=== PATIENT | female | born 1985 | race Caucasian/White ===

== ENCOUNTER → 2019-08-28 13:12 | Outpatient (BNVA) | payer MEDICAID, SELFPAY | PROVIDERS: Family Provider Nurse Practitioner Family; PCP Nurse Practitioner Family; Visit Provider Anesthesiology | DX: M54.9 Dorsalgia, unspecified (principal); M54.2 Cervicalgia; M79.651 Pain in right thigh; M79.652 Pain in left thigh; Z79.891 Long term (current) use of opiate analgesic | CPT/HCPCS: 99214 ==

== ENCOUNTER 2019-09-04 15:42 | Emergency (ER) | payer MEDICAID, SELFPAY ==
--- NOTE | 2019-09-04 15:59 | XRR_ITS ---
PROCEDURE INFORMATION: Exam: XR Chest, 1 View Exam date and time: 09/04/2019 4:32 PM Age: 34 years old Clinical indication: Chest pain; Additional info: Cough/congestion TECHNIQUE: Imaging protocol: XR of the chest Views: 1 view. COMPARISON: CR Chest 1 [place] [id number] 02/04/2019 1:51 AM FINDINGS: Lungs: Unremarkable. No consolidation. Pleural space: Unremarkable. No pleural effusion. No pneumothorax. Heart/Mediastinum: Unremarkable. No cardiomegaly. Bones/joints: No acute abnormality. XR/XR chest 1V portable [id number] IMPRESSION: No acute findings. Unchanged exam.
--- NOTE | 2019-09-04 16:00 | ECG_ITS ---
Measurements Intervals [place] Rate: 73 P: 64 [place]: 172 QRS: 44 QRSD: 82 T: 44 QT: 393 QTc: 435 SINUS RHYTHM SEPTAL MYOCARDIAL INFARCTION [40+ ms Q WAVE IN V1/V2], OF INDETERMINATE AGE No previous ECG available for comparison Electronically Signed On 09-04-2019 18:34:57 MELTER CASTER by Minesh Patel M.D. [email or web address]
[2019-09-04 16:40] VITALS: BP 131/97; PULSE 80; RESP 18; TEMP 36.3; O2SAT 100; BMI 28.3
[2019-09-04 18:07] LABS: Basophils # 0.1 10^3/uL (0.0-0.1); Basophils % 1.1 %; Eosinophils # 1.7 10^3/uL (0.0-0.8); Eosinophils % 24.5 %; Hematocrit 45.9 % (37.0-47.0); Hemoglobin 14.3 g/dL (11.5-15.3); Lymphocytes # 2.1 10^3/uL (0.8-4.8); Lymphocytes % 30.5 %; Mean Corpuscular HGB Conc 31.2 g/dL (30.0-36.0); Mean Corpuscular Hemoglobin 29.5 pg (28.0-34.0); Mean Corpuscular Volume 94.6 fL (81-99); Mean Platelet Volume 10.2 fL (7.4-10.4); Monocytes # 0.3 10^3/uL (0.2-0.9); Monocytes % 4.4 %; Neutrophils # 2.7 10^3/uL (1.8-7.7); Neutrophils % 39.2 %; Nucleated Red Blood Cells % 0 %; Platelet Count 227 10^3/cmm (130-400); Red Blood Count 4.85 10^6/uL (4.1-5.3)
[2019-09-04 18:37] LABS: Alanine Aminotransferase 25 U/L (0-33); Albumin Level 4.4 g/dL (3.5-5.2); Alkaline Phosphatase 85 IU/L (35-105); Anion Gap 16.5 (5-19); Aspartate Amino Transferase 32 U/L (0-32); Blood Urea Nitrogen 17 mg/dL (6-20); Calcium 9.8 mg/dL (8.5-10.5); Carbon Dioxide 24 mmol/L (22-29); Chloride 95 mmol/L (98-107); Globulin 3.3 g/dL (1.3-4.6); Glomerular Filtration Rate 63.5 mL/min (90-130); Glucose 83 mg/dL (74-109); Potassium 3.5 mmol/L (3.5-5.1); Sodium 132 mmol/L (136-145); Total Bilirubin 0.2 mg/dL (0.15-1.2); Total Protein 7.7 g/dL (6.6-8.7)
[2019-09-04 18:38] LABS: Troponin(5th) Baseline 6 ng/mL (0-10)
--- NOTE | 2019-09-04 20:08 | ED_ITS ---
Entered by Fatou Vasquez, acting as scribe for Sep 04, 2019 15:42 HPI - Chest Pain General: Chief Complaint: Chest Pain Stated Complaint: the she had stemi last night, having cp Time Seen by Provider: 09/04/19 20:02 Source: patient Mode of arrival: ambulatory Limitations: no limitations History of Present Illness: HPI narrative: Ellen is a nice 34-year-old female who comes in complaining of epigastric and chest pain. She says the pain is sharp in nature it lasted for about 3 to 4 minutes and since that time she has had sharp stinging little prickly type pain to her chest. She had some associated shortness of breath but otherwise denies any nausea/vomiting, diaphoresis, radiation of her pain or other complaints. Patient states she is never had anything like this before. She is unaware of anything that makes her symptoms better or worse. MD complaint: chest pain Onset (ago): day(s) (last night) Timing of current episode: increasing and still present Onset: during rest Pain location: substernal and epigastric Severity: mild Quality: sharp Relieving factors: nothing Exacerbating factors: nothing Associated symptoms: Reports no associated symptoms and dyspnea; Deny abdominal pain, nausea, palpitations, syncope or vomiting Treatment prior to arrival: none Review of Systems General: Reports: other (negative unless marked) Const: Reports: fatigue Eyes: Denies: change in vision or blurry vision ENMT: Denies: throat pain, painful swallowing, hoarseness, ear pain, ear discharge, Change in hearing or nasal discharge Card: Reports: chest pain; Denies: palpitations, irregular heart rhythm, syncope, pre-syncope, shortness of breath on exertion or shortness of breath when lying down Resp: Reports: shortness of breath; Denies: productive cough, non-productive cough, wheezing, coughing up blood or chest congestion GI: Denies: abdominal pain, nausea, vomiting, vomiting blood, coffee grounds in vomit, diarrhea, constipation, cramping, blood in stool or black tarry stool : Denies: flank pain, painful urination, urinary frequency, urinary urgency, decreased urine ouput, urinary incontinence or blood in urine Musc: Denies: neck pain, back pain, extremity pain, extremity swelling, joint pain, joint swelling, joint warmth or joint stiffness Skin/Breast: Denies: rash, skin tenderness or yellow skin Neuro: Denies: headache, numbness in extremities, weakness in extremities, changes in sensation, lack of coordination, difficulty walking, dizziness, vertigo or confusion Endo: Denies: excessive thirst, tired all the time, cold intolerance, excessive sweating, flushing or hot flashes [place]/Lymph: Denies: easy bruising, easy bleeding, petechiae or enlarged lymph nodes All/Imm: Denies: hives, throat swelling, tongue swelling, facial swelling or acute wheezing PFSH ED PFSH: Statuses (acute, chronic, etc) shown below reflect problem list status as previously entered and may not be historically accurate Medical History (Updated 09/04/19 @ 22:58 by Zainab Paiz) 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) Chronic neck pain (Chronic) Encounter for long-term use of opiate analgesic (Chronic) Family history of GERD (Acute) History of fibromyalgia (Acute) History of IBS (Acute) Neuropathy, lumbosacral (radicular) (Chronic) Surgical History (Updated 08/28/19 @ 13:33 by Mata Lopez MD) History of wisdom tooth extraction (Acute) 2002 S/P arthroscopic knee surgery (Acute) RIGHT 2001 S/P laparoscopic cholecystectomy (Acute) 2008 Social History Smoking and tobacco status: current every day smoker Alcohol intake: never Physical Exam Const: COMMON NORMALS: no apparent distress, oriented x3, no limitations, healthy appearing and well nourished EXAM LIMITATIONS: no altered mental status GENERAL APPEARANCE: cooperative, well kempt and well developed O RIENTATION/CONSCIOUSNESS: Yes awake HENMT: COMMON NORMALS: normocephalic, head/scalp atraumatic, hearing grossly normal bilaterally, external ears normal, EAC's normal, external nose normal and moist oral mucous membranes HEAD & SCALP: normal to inspection, normocephalic and atraumatic FACE & SINUS: normal facial exam and face symmetric NOSE: external nose normal and nares normal EXTERNAL EAR: Yes external ears normal EXTERNAL AUDITORY CANAL: EAC's normal MOUTH: oral and palatal mucosa normal and tongue normal Eye: COMMON NORMALS: PERRL, EOMs intact bilaterally, conjunctivae normal and no scleral icterus GENERAL EYE: normal appearance of both eyes and normal light reflex CONJUNCTIVA: Yes conjunctivae normal SCLERA: sclerae normal CORNEA: Yes corneas normal PUPIL: Yes PERRL DIRECT OPHTHALMOSCOPY: Yes n ormal light reflex Neck/C-Spine: COMMON NORMALS: full ROM, no lymphadenopathy, supple, no meningeal signs and no JVD GENERAL: Yes normal visual inspection and Yes trachea midline CERVICAL SPINE: Yes cervical ROM normal Chest: COMMONS NORMALS: inspection of chest normal and palpation of chest normal Resp: COMMON NORMALS: normal respiratory effort, no retractions, no use of accessory muscles and clear to auscultation bilaterally EFFORT & INSPECTION: Yes able to speak in complete sentences AUSCULTATION: clear to auscultation bilaterally Cardio: COMMON NORMALS: no JVD GI: COMMON NORMALS: soft to palpation, non-tender, no hepatosplenomegaly and no masses INSPECTION: Yes normal to inspection PALPATION: Yes soft and Yes no hepatosplenomegaly : COMMON NORMALS: Yes no CVA tenderness BLADDER/KIDNEY EXAM: Yes no CVA tenderness Back/Pelvis: COMMON NORMALS: no CVA tenderness, thoracic and lumbar spine normal to inspection, no thoracic nor lumbar tenderness and thoraco-lumbar ROM normal Extremity: COMMON NORMALS: normal to inspection, full ROM, normal capillary refill, no joint enlargement, no clubbing, cyanosis or edema and no calf tenderness Neuro: COMMON NORMALS: oriented x3, CN's II-XII intact bilaterally, moves all extremities, no focal motor deficits and no sensory deficits noted MENINGEAL SIGNS: Yes no meningeal signs Psych: COMMON NORMALS: mental status grossly normal, thought process normal, cooperative, affect normal, speech normal and activity/motor behavior normal APPEARANCE: Yes well kempt SPEECH: Yes normal speech THOUGHT PROCESS: normal thought process Skin: COMMON NORMALS: no rashes or lesions noted, skin turgor normal, no jaundice, no petechiae and no mottling GENERAL SKIN EXAM: no rashes or lesions noted and turgor normal Course ED course: PERC Rule - Negative Vital Signs: Vital signs: Vital Signs Temperature 97.3 F L 09/04/19 16:40 Pulse Rate 73 09/04/19 23:37 Respiratory Rate 16 09/04/19 23:37 Blood Pressure 107/72 09/04/19 23:37 Pulse Oximetry 96 09/04/19 23:37 MDM - Chest Pain MDM Narrative: Medical decision making narrative: Arrival -Ellen is a 34-year-old female who comes in complaining of sharp chest pain that began last night but has resolved but continues to have intermittent prickly type pain to her chest. She has no other associated symptoms. She is PERC rule negative. Differential diagnosis for her symptoms is extensive including acute coronary syndrome, pulmonary embolism, acute aortic dissection, pneumothorax, mediastinal pathology among many others. We will proceed with cardiac work-up and evaluate for these among others. I believe at this time pulmonary embolism can be ruled out based upon the PERC rule. Discharge -patient's EKGs and troponins have ruled her out and her HEART Score is 2. Patient's CT scan does not reveal any evidence of aortic dissection. I believe she is safe for discharge she wants to follow-up with her primary care physician. At this time I think this is likely costochondritis. The patient had mild pain with palpation but her symptoms were worse when she moved around. Further care can be dictated by her doctor. The patient is relieved to hear that her work-up is unremarkable up to this point. Lab Data: Attestation: I reviewed the patient's lab results. Labs: Lab Results 09/04/19 09/04/19 09/04/19 Range/Units 17:59 17:59 17:59 WBC 7.0 (4.0-10.0) 10^3/ uL RBC 4.85 (4.1-5.3) 10^6/u L Hgb 14.3 (11.5-15.3) g/dL Hct 45.9 (37.0-47.0) % MCV 94.6 (81-99) fL MCH 29.5 (28.0-34.0) pg MCHC 31.2 (30.0-36.0) g/dL RDW 12.0 L (12.1-15.1) % Plt Count 227 (130-400) 10^3/c mm MPV 10.2 (7.4-10.4) fL Neut % (Auto) 39.2 % Lymph % (Auto) 30.5 % Fleming % (Auto) 4.4 % Eos % (Auto) 24.5 % Baso % (Auto) 1.1 % Neut # (Auto) 2.7 (1.8-7.7) 10^3/u L Lymph # (Auto) 2.1 (0.8-4.8) 10^3/u L Fleming # (Auto) 0.3 (0.2-0.9) 10^3/u L Eos # (Auto) 1.7 H (0.0-0.8) 10^3/u L Baso # (Auto) 0.1 (0.0-0.1) 10^3/u L Nucleated RBC % (a uto) 0 % Nucleated RBCs # 0.0 /100WBC Sodium 132 L (136-145) mmol/L Potassium 3.5 (3.5-5.1) mmol/L Chloride 95 L (98-107) mmol/L Carbon Dioxide 24 (22-29) mmol/L Anion Gap 16.5 (5-19) BUN 17 (6-20) mg/dL Creatinine 1.0 H (0.5-0.9) mg/dL GFR Calculation 63.5 L (90-130) mL/min Glucose 83 (74-109) mg/dL Calcium 9.8 (8.5-10.5) mg/dL Total Bilirubin 0.2 (0.15-1.2) mg/dL AST 32 (0-32) U/L ALT 25 (0-33) U/L Alkaline Phosphata se 85 (35-105) IU/L Troponin T Baselin e 6 (0-10) ng/mL Troponin T 120 Min [place] (0-10) ng/mL Delta Troponin T (0-10) ABS# Total Protein 7.7 (6.6-8.7) g/dL Albumin 4.4 (3.5-5.2) g/dL Globulin 3.3 (1.3-4.6) g/dL 09/04/19 Range/Units 20:50 WBC (4.0-10.0) 10^3/ uL RBC (4.1-5.3) 10^6/u L Hgb (11.5-15.3) g/dL Hct (37.0-47.0) % MCV (81-99) fL MCH (28.0-34.0) pg MCHC (30.0-36.0) g/dL RDW (12.1-15.1) % Plt Count (130-400) 10^3/c mm MPV (7.4-10.4) fL Neut % (Auto) % Lymph % (Auto) % Fleming % (Auto) % Eos % (Auto) % Baso % (Auto) % Neut # (Auto) (1.8-7.7) 10^3/u L Lymph # (Auto) (0.8-4.8) 10^3/u L Fleming # (Auto) (0.2-0.9) 10^3/u L Eos # (Auto) (0.0-0.8) 10^3/u L Baso # (Auto) (0.0-0.1) 10^3/u L Nucleated RBC % (a uto) % Nucleated RBCs # /100WBC Sodium (136-145) mmol/L Potassium (3.5-5.1) mmol/L Chloride (98-107) mmol/L Carbon Dioxide (22-29) mmol/L Anion Gap (5-19) BUN (6-20) mg/dL Creatinine (0.5-0.9) mg/dL GFR Calculation (90-130) mL/min Glucose (74-109) mg/dL Calcium (8.5-10.5) mg/dL Total Bilirubin (0.15-1.2) mg/dL AST (0-32) U/L ALT (0-33) U/L Alkaline Phosphata se (35-105) IU/L Troponin T Baselin e (0-10) ng/mL Troponin T 120 Min [place] 6.16 (0-10) ng/mL Delta Troponin T 0.16 (0-10) ABS# Total Protein (6.6-8.7) g/dL Albumin (3.5-5.2) g/dL Globulin (1.3-4.6) g/dL Imaging Data^: Other Imaging: Radiologist's impression: [address] [address] [address] Scan Report Signed Patient: Ellen Mcdowell Unit #: [id number] : 1985 Age/Sex: 34 / F ADM Date: 09/04/19 Loc: ER Room/Bed: Attending Dr: Ordering Provider/Ordering MD: Zainab Paiz DO Date of Service: 09/04/19 Procedure(s): CT angio chest w abd pel w con Accession Number(s): [id number] Report Number: [id number] PROCEDURE INFORMATION: Exam: CT Angiography Chest With Contrast Exam date and time: 09/04/2019 9:26 PM Age: 34 years old Clinical indication: Chest pain; Patient HX: Best images. Patient iv not tolerating injection; Additional info: Chest/abdominal pain - evaluate for dissection TECHNIQUE: Imaging protocol: Computed tomographic angiography of the chest with intravenous contrast. 3D rendering: MIP and/or 3D reconstructed images were created by the technologist. Total DLP: 1612.23 mGy-cm Radiation optimization: All CT scans at this facility use at least one of these dose optimization techniques: automated exposure control; mA and/or kV adjustment per patient size (includes targeted exams where dose is matched to clinical indication); or iterative reconstruction. Contrast material: OMNI 350; Contrast volume: 95 ml; Contrast route: IV; COMPARISON: CR XR chest 1V portable [id number] 09/04/2019 4:28 PM FINDINGS: Pulmonary arteries: Normal. No pulmonary emboli. Aorta: Unremarkable. No aortic aneurysm. No aortic dissection. Lungs: Unremarkable. No consolidation. No masses. There is mild dependent atelectasis. Pleural space: Unremarkable. No pneumothorax. No pleural effusion. Heart: Unremarkable. No cardiomegaly. No pericardial effusion. Lymph nodes: Unremarkable. No enlarged lymph nodes. Bones/joints: Unremarkable. No acute fracture. Soft tissues: Unremarkable. IMPRESSION: No acute findings. No aneurysm or dissection. No pulmonary embolus. PROCEDURE INFORMATION: Exam: CT Abdomen And Pelvis With Contrast Exam date and time: 09/04/2019 9:26 PM Age: 34 years old Clinical indication: Chest pain; Patient HX: Best images. Patient iv not tolerating injection; Additional info: Chest/abdominal pain - evaluate for dissection TECHNIQUE: Imaging protocol: Computed tomography of the abdomen and pelvis with intravenous contrast. COMPARISON: CR XR chest 1V portable [id number] 09/04/2019 4:28 PM FINDINGS: Liver: Unremarkable.No mass. Gallbladder and bile ducts: There has been a cholecystectomy. There is no common bile duct dilation. Pancreas: Normal. No ductal dilation. Spleen: Normal. No splenomegaly. Adrenals: Normal. No mass. Kidneys and ureters: Normal. No hydronephrosis. Stomach and bowel: Unremarkable. No obstruction. No mucosal thickening. Appendix: No evidence of appendicitis. Intraperitoneal space: Unremarkable. No free air. No significant fluid collection. Vasculature: Unremarkable.No abdominal aortic aneurysm. Lymph nodes: Unremarkable.No enlarged lymph nodes. Bladder: Unremarkable as visualized. Reproductive: Unremarkable as visualized. Subcentimeter ovarian cysts are noted. The uterus is unremarkable. Bones/joints: Unremarkable. No acute fracture. Soft tissues: There is a fat-containing umbilical hernia. CT/CT angio chest w abd pel w con IMPRESSION: No acute abnormality or inflammatory changes. Radiation Dose CTDIVOL = (mGy): DLP = 1612.23 (mGy-cm) Dictated By: Ann Peterson Signed By: Ann Peterson Signed Date/Time: 09/04/192217 DD/ 16 CXR: Radiologist's impression: [address] [address] XRay Report Signed Patient: Ellen Mcdowell #: [id number] : 1985Acct#:[id number] Age/Sex: 34 / FADM Date: 09/04/19 Loc: [facility], [place]/Bed: Attending Dr: Ordering Provider/Ordering MD: Kaley Meade Date of Service: 09/04/19 Procedure(s): XR chest 1V portable [id number] Accession Number(s): [id number] Report Number: [id number] PROCEDURE INFORMATION: Exam: XR Chest, 1 View Exam date and time: 09/04/2019 4:32 PM Age: 34 years old Clinical indication: Chest pain; Additional info: Cough/congestion TECHNIQUE: Imaging protocol: XR of the chest Views: 1 view. COMPARISON: CR Chest 1 [place] [id number] 02/04/2019 1:51 AM FINDINGS: Lungs: Unremarkable. No consolidation. Pleural space: Unremarkable. No pleural effusion. No pneumothorax. Heart/Mediastinum: Unremarkable. No cardiomegaly. Bones/joints: No acute abnormality. XR/XR chest 1V portable [id number] IMPRESSION: No acute findings. Unchanged exam. Dictated By:Ann Peterson Signed By:Kwame Petersonigned Date/Time:09/04/190 DD/ 1649 EKG Data^: EKG 1: Attestation: I personally reviewed and interpreted this EKG as follows: EKG interpretation date: 09/04/19 EKG interpretation time: 16:58 Interpretation: Normal sinus rhythm at 73 beats a minute, normal inverted juvenile T waves, normal intervals. No acute ST or T wave changes EKG 2: Attestation: I personally reviewed and interpreted this EKG as follows: EKG interpretation date: 09/04/19 EKG interpretation time: 20:24 Interpretation: Normal sinus rhythm at 77 beats a minute, normal axis, normal intervals, normal inverted juvenile T waves, no acute ST or T wave changes. Discharge Plan Discharge Patient Disposition: Home, Self-Care Clinical Impression: Chest pain Qualifiers: Chest pain type: unspecified Qualified Code(s): R07.9 - Chest pain, unspecified Condition: Stable Prescriptions: No Action hydrocodone-acetaminophen 10-325 mg tablet 1 tab PO .FIVE TIMES DAILY PRN (Reason: pain) 30 Days Qty: 150 RF: 0 hydrocodone-acetaminophen 10-325 mg tablet 1 tab PO .5 times a day PRN (Reason: pain) 30 Days Qty: 150 RF: 0 meloxicam [Mobic] 15 mg tablet 15 mg PO QDAY 30 Days Qty: 30 RF: 1 tizanidine 4 mg capsule 4 mg PO TID PRN (Reason: muscle spasticity) 30 Days Qty: 90 RF: 1 pregabalin [Lyrica] 75 mg capsule 75 mg PO BID 30 Days Qty: 60 RF: 1 pregabalin 75 mg capsule 75 mg PO BID 30 Days Qty: 60 RF: 1 ondansetron HCl [Zofran] 4 mg tablet 4 mg PO Q8H RF: 0 duloxetine [Cymbalta] 30 mg capsule,delayed release(DR/EC) 30 mg PO QDAY RF: 0 triamterene-hydrochlorothiazid 37.5-25 mg capsule 1 cap PO BID RF: 0 pantoprazole [Protonix] 40 mg tablet,delayed release (DR/EC) 40 mg PO QDAY RF: 0 hydroxyzine HCl 25 mg tablet 25 mg PO TID PRNRF: 0 rizatriptan [Maxalt] 10 mg tablet 10 mg PO ONCE RF: 0 Zyrtec 10 mg capsule 10 mg PO QDAY RF: 0 metoprolol tartrate 25 mg tablet 25 mg PO BID RF: 0 trazodone 50 mg tablet 50 mg PO QDAY PRN (Reason: insomnia) RF: 0 Discharge Orders: Discharge Order (Routine); Ordered 09/04/19 Ordered By: Zainab Paiz Referrals: Connor Bautista, [facility] [Primary Care Provider] - 1-3 days Discharge Diet: Advance as tolerated Discharge Activity: Resume usual activity Patient Instructions: Chest Pain (ED) Activity Restrictions/Additional Instructions: Please return to the ER immediately for any of the signs or symptoms listed on your discharge instruction sheets, worsening/changing of your symptoms, you are not getting better as quickly as expected, or for ANY other cause or concerns. Discharge Date/Time: 09/04/19 23:45 Coding Level of Care Code ED Barrel Scraper for Chg Fwd Exam Problem Focused The documentation recorded by the Pedro red Bridget Annette, accurately reflects the service I personally performed and the decisions made by Izabel osullivan Eli N Sep 04, 2019 15:42
--- NOTE | 2019-09-04 20:16 | CTR_ITS ---
PROCEDURE INFORMATION: Exam: CT Angiography Chest With Contrast Exam date and time: 09/04/2019 9:26 PM Age: 34 years old Clinical indication: Chest pain; Patient HX: Best images. Patient iv not tolerating injection; Additional info: Chest/abdominal pain - evaluate for dissection TECHNIQUE: Imaging protocol: Computed tomographic angiography of the chest with intravenous contrast. 3D rendering: MIP and/or 3D reconstructed images were created by the technologist. Total DLP: 1612.23 mGy-cm Radiation optimization: All CT scans at this facility use at least one of these dose optimization techniques: automated exposure control; mA and/or kV adjustment per patient size (includes targeted exams where dose is matched to clinical indication); or iterative reconstruction. Contrast material: OMNI 350; Contrast volume: 95 ml; Contrast route: IV; COMPARISON: CR XR chest 1V portable [id number] 09/04/2019 4:28 PM FINDINGS: Pulmonary arteries: Normal. No pulmonary emboli. Aorta: Unremarkable. No aortic aneurysm. No aortic dissection. Lungs: Unremarkable. No consolidation. No masses. There is mild dependent atelectasis. Pleural space: Unremarkable. No pneumothorax. No pleural effusion. Heart: Unremarkable. No cardiomegaly. No pericardial effusion. Lymph nodes: Unremarkable. No enlarged lymph nodes. Bones/joints: Unremarkable. No acute fracture. Soft tissues: Unremarkable. IMPRESSION: No acute findings. No aneurysm or dissection. No pulmonary embolus. PROCEDURE INFORMATION: Exam: CT Abdomen And Pelvis With Contrast Exam date and time: 09/04/2019 9:26 PM Age: 34 years old Clinical indication: Chest pain; Patient HX: Best images. Patient iv not tolerating injection; Additional info: Chest/abdominal pain - evaluate for dissection TECHNIQUE: Imaging protocol: Computed tomography of the abdomen and pelvis with intravenous contrast. COMPARISON: CR XR chest 1V portable [id number] 09/04/2019 4:28 PM FINDINGS: Liver: Unremarkable.No mass. Gallbladder and bile ducts: There has been a cholecystectomy. There is no common bile duct dilation. Pancreas: Normal. No ductal dilation. Spleen: Normal. No splenomegaly. Adrenals: Normal. No mass. Kidneys and ureters: Normal. No hydronephrosis. Stomach and bowel: Unremarkable. No obstruction. No mucosal thickening. Appendix: No evidence of appendicitis. Intraperitoneal space: Unremarkable. No free air. No significant fluid collection. Vasculature: Unremarkable.No abdominal aortic aneurysm. Lymph nodes: Unremarkable.No enlarged lymph nodes. Bladder: Unremarkable as visualized. Reproductive: Unremarkable as visualized. Subcentimeter ovarian cysts are noted. The uterus is unremarkable. Bones/joints: Unremarkable. No acute fracture. Soft tissues: There is a fat-containing umbilical hernia. CT/CT angio chest w abd pel w con IMPRESSION: No acute abnormality or inflammatory changes. Radiation Dose CTDIVOL = (mGy): DLP = 1612.23 (mGy-cm)
--- NOTE | 2019-09-04 20:24 | PC.NURSE ---
performed EKG at 2021 and shown to ER doctor
[2019-09-04 20:56] VITALS: BP 127/88; PULSE 80; RESP 13; O2SAT 100
[2019-09-04 21:23] LABS: Troponin 5 2HR 6.16 ng/mL (0-10); Troponin 5 2HR Delta 0.16 ABS# (0-10)
[2019-09-04] MEDS: iohexol 350 mg/mL 100 mL Btl 95 ML IV (21:35)
--- NOTE | 2019-09-04 22:00 | ECG_ITS ---
Measurements Intervals [place] Rate: 77 P: 59 W[place]: 169 QRS: 44 QRSD: 82 T: 37 QT: 391 QTc: 445 SINUS RHYTHM SEPTAL MYOCARDIAL INFARCTION , OF INDETERMINATE AGE [40+ ms Q WAVE IN V1/V2] Compared to ECG 09/04/2019 16:58:55 No significant changes Electronically Signed On 09-05-2019 11:35:57 CUSTOMER EXPERIENCE ANALYST by Herminio Chirstine M.D. [id number]
[2019-09-04 23:37] VITALS: BP 107/72; PULSE 73; RESP 16; O2SAT 96
== END 2019-09-04 23:45 | disposition home or self-care (01) ==
PROVIDERS: Physician Assistant; Emergency Provider Emergency Medicine; Family Provider Nurse Practitioner Family; PCP Nurse Practitioner Family
DX: R07.9 Chest pain, unspecified (principal); F17.210 Nicotine dependence, cigarettes, uncomplicated
CPT/HCPCS: 36415; 71045; 71275; 74177; 80053; 84484; 85025; 93005; 99282; 99284; Q9967

== ENCOUNTER → 2019-10-30 09:23 | Outpatient (BNVA) | payer MEDICAID, SELFPAY | PROVIDERS: Family Provider Nurse Practitioner Family; PCP Nurse Practitioner Family; Visit Provider Nurse Practitioner | DX: G89.29 Other chronic pain (principal); M54.41 Lumbago with sciatica, right side; M54.42 Lumbago with sciatica, left side; M54.2 Cervicalgia; F17.210 Nicotine dependence, cigarettes, uncomplicated; Z79.891 Long term (current) use of opiate analgesic | CPT/HCPCS: 99213; 99214 ==

== ENCOUNTER → 2020-09-30 11:03 | Outpatient (BNVA) | payer MEDICAID, SELFPAY | PROVIDERS: Family Provider Nurse Practitioner Family; PCP Nurse Practitioner Family; Visit Provider Internal Medicine | DX: R76.8 Other specified abnormal immunological findings in serum (principal); M54.2 Cervicalgia; G89.29 Other chronic pain; Z11.59 Encounter for screening for other viral diseases; R21 Rash and other nonspecific skin eruption; Z87.891 Personal history of nicotine dependence | CPT/HCPCS: 99204 ==

== ENCOUNTER 2020-09-30 14:52 | Outpatient (CLI) | payer MEDICAID, SELFPAY ==
--- NOTE | 2020-09-30 15:02 | XR_ITS ---
WS: [id number] Exam: XR hand LT 2V [id number] Date/Time of Exam: 09/30/2020 3:06 PM Reason For Exam: M54.42 - Lumbago with sciatica, left side Findings: No fractures, soft tissue swelling, or unusual calcifications are noted. The hand shows normal bony alignment. There is no irregularity of the bony architecture. XR/XR hand LT 2V [id number] IMPRESSION: Normal left hand.
--- NOTE | 2020-09-30 15:02 | XR_ITS ---
WS: [id number] Exam: XR sacroiliac jts m 3V [id number] Date/Time of Exam: 09/30/2020 3:06 PM Reason For Exam: L40.9 - Psoriasis, unspecified No fracture or dislocation. The SI joints are open. There is a mild to moderate degenerative change o f both joints. XR/XR sacroiliac jts m 3V [id number] IMPRESSION: 1. Mild to moderate degenerative change of the bilateral SI joints. No other si gnificant finding.
--- NOTE | 2020-09-30 15:02 | XR_ITS ---
WS: [id number] Exam: XR hand RT 2V [id number] Date/Time of Exam: 09/30/2020 3:06 PM Reason For Exam: M54.42 - Lumbago with sciatica, left side Findings: No fractures, soft tissue swelling, or unusual calcifications are noted. The hand shows normal bony alignment. There is no irregularity of the bony architecture. XR/XR hand RT 2V [id number] IMPRESSION: Normal right hand.
[2020-09-30 16:41] LABS: Basophils % 0.5 %; Eosinophils # 0.4 10^3/uL (0.0-0.8); Eosinophils % 5.9 %; Hemoglobin 13.2 g/dL (11.5-15.3); Lymphocytes # 2.2 10^3/uL (0.8-4.8); Lymphocytes % 35.8 %; Mean Corpuscular HGB Conc 32.2 g/dL (30.0-36.0); Mean Corpuscular Hemoglobin 28.9 pg (28.0-34.0); Mean Corpuscular Volume 89.9 fL (81-99); Mean Platelet Volume 10.8 fL (7.4-10.4); Monocytes # 0.5 10^3/uL (0.2-0.9); Monocytes % 7.4 %; Neutrophils # 3.07 10^3/uL (1.8-7.7); Neutrophils % 50.1 %; Nucleated Red Blood Cells % 0 %; Platelet Count 304 10^3/cmm (130-400); Red Blood Count 4.56 10^6/uL (4.1-5.3); Red Cell Distribution Width 13.3 % (12.1-15.1); White Blood Count 6.1 10^3/uL (4.0-10.0)
[2020-09-30 17:07] LABS: Alanine Aminotransferase 15 U/L (0-33); Alkaline Phosphatase 84 IU/L (35-105); Anion Gap 13.2 (5-19); Aspartate Amino Transferase 15 U/L (0-32); Blood Urea Nitrogen 16 mg/dL (6-20); C Reactive Protein 0.9 mg/L (0.0-4.9); Calcium 8.7 mg/dL (8.5-10.5); Carbon Dioxide 26 mmol/L (22-29); Chloride 100 mmol/L (98-107); Complement C3 130 mg/dL (90-180); Creatine Phosphokinase 62 U/L (26-192); Globulin 2.7 g/dL (1.3-4.6); Glomerular Filtration Rate 71.3 mL/min (90-130); Glucose 89 mg/dL (65-115); Osmolality Calculated 281 mOsm/kg (285-295); Potassium 4.2 mmol/L (3.5-5.1); Sodium 135 mmol/L (136-145); Total Bilirubin 0.2 mg/dL (0.15-1.2); Total Protein 6.7 g/dL (6.6-8.7)
[2020-09-30 17:21] LABS: Hepatitis B Core AB, Total Non-Reactive (Nonreactive); Hepatitis B Surface Antigen Non-Reactive (Nonreactive); Hepatitis C Virus Antibody Non-Reactive (Nonreactive)
[2020-09-30 17:58] LABS: Erythrocyte Sedimentation Rate 17 mm/hr (0-15)
[2020-10-01 13:07] LABS: CENTROMERE B ANTIBODY <1.0 NEG AI (<1.0 NEG); Cyclic Citrullinated Peptide <16 UNITS; JO-1 ANTIBODY <1.0 NEG AI (<1.0 NEG); RNP ANTIBODY <1.0 NEG AI (<1.0 NEG); SCL-70 ANTIBODY <1.0 NEG AI (<1.0 NEG); SJOGREN'S ANTIBODY (SS-A) <1.0 NEG AI (<1.0 NEG); SM ANTIBODY <1.0 NEG AI (<1.0 NEG); SS-B <1.0 NEG AI (<1.0 NEG)
[2020-10-01 15:32] LABS: THYROID PEROXIDASE ANTIBODIES 1 IU/mL (<9)
[2020-10-02 10:43] LABS: ANA PATTERN Nuclear, Homogeneous; ANA SCREEN, IFA POSITIVE (NEGATIVE)
[2020-10-02 14:13] LABS: COMPLEMENT, TOTAL (CH50) 53 U/mL (31-60)
[2020-10-03 00:57] LABS: Tissue Transglutaminase IgA Ab <1 U/mL; Tissue transglutaminase Ab.IgG 2 U/mL
[2020-10-03 02:32] LABS: Immunoglobulin A 134 mg/dL (47-310)
[2020-10-03 18:57] LABS: HLA-B27 NEGATIVE (NEGATIVE)
[2020-10-03 23:38] LABS: Vitamin B1(Thiamin) Plas/Ser 13 nmol/L (8-30)
[2020-10-04 16:27] LABS: Gliadin Ab.IgA 2 U (<20); Gliadin Ab.IgG 2 U (<20)
[2020-10-06 15:07] LABS: COMPLEMENT COMPONENT C3C 148 mg/dL (83-193); COMPLEMENT COMPONENT C4C 22 mg/dL (15-57)
[2020-10-07 00:53] LABS: DNA AB (DS) CRITHIDIA,IFA NEGATIVE (NEGATIVE)
== END 2020-09-30 14:53 | disposition home or self-care (01) ==
PROVIDERS: PCP Nurse Practitioner Family; Visit Provider Internal Medicine
DX: G89.29 Other chronic pain (principal); M54.41 Lumbago with sciatica, right side; M54.42 Lumbago with sciatica, left side; L40.9 Psoriasis, unspecified; D86.9 Sarcoidosis, unspecified; Z51.81 Encounter for therapeutic drug level monitoring; M45.9 Ankylosing spondylitis of unspecified sites in spine; Z11.59 Encounter for screening for other viral diseases
CPT/HCPCS: 36415; 72202; 73120; 80053; 82550; 82784; 83516; 84425; 85025; 85651; 86140; 86160; 86162; 86235; 86255; 86376; 86431; 86704; 86803; 86812; 87340

== ENCOUNTER 2021-06-18 11:49 | Outpatient (CLI) | payer MEDICAID, SELFPAY ==
[2021-06-18 12:29] LABS: Basophils % 0.5 %; Eosinophils # 0.4 10^3/uL (0.0-0.8); Eosinophils % 6.5 %; Lymphocytes # 1.9 10^3/uL (0.8-4.8); Lymphocytes % 32.6 %; Mean Corpuscular Hemoglobin 27.7 pg (28.0-34.0); Mean Corpuscular Volume 89.6 fl (81-99); Mean Platelet Volume 10.4 fL (7.4-10.4); Monocytes # 0.3 10^3/uL (0.2-0.9); Monocytes % 5.8 %; Neutrophils # 3.18 10^3/uL (1.8-7.7); Neutrophils % 54.3 %; Nucleated Red Blood Cells % 0 %; Platelet Count 325 10^3/cmm (130-400); Red Blood Count 4.69 10^6/uL (4.1-5.3); Red Cell Distribution Width 14.3 % (12.1-15.1); White Blood Count 5.9 10^3/uL (4.0-10.0)
[2021-06-18 12:56] LABS: Alanine Aminotransferase 10 U/L (0-33); Alkaline Phosphatase 110 IU/L (35-105); Anion Gap 17.2 (5-19); Aspartate Amino Transferase 17 U/L (0-32); Blood Urea Nitrogen 13 mg/dL (6-20); C Reactive Protein 2.6 mg/L (0.0-4.9); Calcium 8.7 mg/dL (8.5-10.5); Carbon Dioxide 21 mmol/L (22-29); Chloride 102 mmol/L (98-107); Creatine Phosphokinase 86 U/L (26-192); Ferritin 15 ng/mL (15-150); Globulin 3.2 g/dL (1.3-4.6); Glomerular Filtration Rate 95.2 mL/min (90-130); Glucose 91 mg/dL (65-115); Iron 63 ug/dL (37-145); Magnesium 1.7 mg/dL (1.7-2.3); Osmolality Calculated 282 mOsm/kg (285-295); Phosphorus 3.2 mg/dL (2.5-4.5); Potassium 4.2 mmol/L (3.5-5.1); Sodium 136 mmol/L (136-145); Total Bilirubin 0.2 mg/dL (0.15-1.2); Total Protein 7.2 g/dL (6.6-8.7)
[2021-06-24 06:01] LABS: Adrenocorticotropic Hormone 10 pg/mL (6-50)
== END 2021-06-18 11:50 | disposition home or self-care (01) ==
LOC: LAB 11:56
PROVIDERS: PCP Nurse Practitioner Family; Visit Provider Internal Medicine
DX: D50.9 Iron deficiency anemia, unspecified (principal); R76.8 Other specified abnormal immunological findings in serum; Z79.891 Long term (current) use of opiate analgesic; Z79.899 Other long term (current) drug therapy
CPT/HCPCS: 36415; 80053; 82024; 82533; 82550; 82728; 83540; 83735; 84100; 85025; 86140

== ENCOUNTER → 2021-06-23 10:47 | Outpatient (BNVA) | payer MEDICAID, SELFPAY | PROVIDERS: PCP Nurse Practitioner Family; Visit Provider Internal Medicine | DX: R76.8 Other specified abnormal immunological findings in serum (principal); M53.3 Sacrococcygeal disorders, not elsewhere classified; R21 Rash and other nonspecific skin eruption; R70.0 Elevated erythrocyte sedimentation rate; Z87.891 Personal history of nicotine dependence | CPT/HCPCS: 99214 ==

== ENCOUNTER 2021-09-03 16:46 | Outpatient (CLI) | payer MEDICAID, SELFPAY ==
[2021-09-03 17:42] LABS: Erythrocyte Sedimentation Rate 9 mm/hr (0-15)
[2021-09-03 17:45] LABS: Basophils % 0.3 %; Eosinophils # 0.2 10^3/uL (0.0-0.8); Eosinophils % 1.9 %; Hematocrit 45.4 % (37.0-47.0); Hemoglobin 13.9 g/dL (11.5-15.3); Lymphocytes # 2.5 10^3/uL (0.8-4.8); Lymphocytes % 27.5 %; Mean Corpuscular HGB Conc 30.6 g/dL (30.0-36.0); Mean Corpuscular Hemoglobin 27.7 pg (28.0-34.0); Mean Corpuscular Volume 90.4 fl (81-99); Mean Platelet Volume 10.8 fL (7.4-10.4); Monocytes # 0.7 10^3/uL (0.2-0.9); Monocytes % 7.8 %; Neutrophils # 5.64 10^3/uL (1.8-7.7); Neutrophils % 62.2 %; Nucleated Red Blood Cells % 0 %; Platelet Count 282 10^3/cmm (130-400); Red Blood Count 5.02 10^6/uL (4.1-5.3); Red Cell Distribution Width 13.5 % (12.1-15.1); White Blood Count 9.1 10^3/uL (4.0-10.0)
[2021-09-03 17:59] LABS: Alanine Aminotransferase 14 U/L (0-33); Albumin Level 4.4 g/dL (3.5-5.2); Alkaline Phosphatase 84 IU/L (35-105); Anion Gap 20.6 (5-19); Aspartate Amino Transferase 17 U/L (0-32); Blood Urea Nitrogen 15 mg/dL (6-20); C Reactive Protein 0.8 mg/L (0.0-4.9); Calcium 9.6 mg/dL (8.5-10.5); Carbon Dioxide 21 mmol/L (22-29); Chloride 100 mmol/L (98-107); Globulin 2.6 g/dL (1.3-4.6); Glomerular Filtration Rate 70.8 mL/min (90-130); Glucose 57 mg/dL (65-115); Osmolality Calculated 285 mOsm/kg (285-295); Potassium 3.6 mmol/L (3.5-5.1); Sodium 138 mmol/L (136-145); Total Bilirubin 0.3 mg/dL (0.15-1.2)
== END 2021-09-03 16:47 | disposition home or self-care (01) ==
LOC: LAB 16:52
PROVIDERS: PCP Nurse Practitioner Family; Visit Provider Internal Medicine
DX: R76.8 Other specified abnormal immunological findings in serum (principal); Z79.899 Other long term (current) drug therapy
CPT/HCPCS: 80053; 85025; 85651; 86140

== ENCOUNTER → 2021-09-13 13:44 | Outpatient (BNVA) | payer MEDICAID, SELFPAY | PROVIDERS: PCP Nurse Practitioner Family; Visit Provider Internal Medicine | DX: R76.8 Other specified abnormal immunological findings in serum (principal); M53.3 Sacrococcygeal disorders, not elsewhere classified; Z87.891 Personal history of nicotine dependence | CPT/HCPCS: 99214 ==

== ENCOUNTER 2022-03-08 15:52 | Outpatient (CLI) | payer MEDICAID, SELFPAY ==
[2022-03-08 17:36] LABS: Erythrocyte Sedimentation Rate 3 mm/hr (0-15)
[2022-03-08 17:38] LABS: Basophils % 0.5 %; Eosinophils # 0.2 10^3/uL (0.0-0.8); Eosinophils % 2.9 %; Hematocrit 36.9 % (37.0-47.0); Hemoglobin 12.4 g/dL (11.5-15.3); Lymphocytes # 2.3 10^3/uL (0.8-4.8); Lymphocytes % 41.8 %; Mean Corpuscular HGB Conc 33.6 g/dL (30.0-36.0); Mean Corpuscular Hemoglobin 28.7 pg (28.0-34.0); Mean Corpuscular Volume 85.4 fl (81-99); Mean Platelet Volume 10.9 fL (7.4-10.4); Monocytes # 0.4 10^3/uL (0.2-0.9); Monocytes % 7.2 %; Neutrophils # 2.64 10^3/uL (1.8-7.7); Neutrophils % 47.4 %; Nucleated Red Blood Cells % 0 %; Platelet Count 258 10^3/cmm (130-400); Red Blood Count 4.32 10^6/uL (4.1-5.3); Red Cell Distribution Width 13.6 % (12.1-15.1); White Blood Count 5.6 10^3/uL (4.0-10.0)
[2022-03-08 18:27] LABS: Alanine Aminotransferase 20 U/L (0-33); Albumin Level 3.7 g/dL (3.5-5.2); Alkaline Phosphatase 65 IU/L (35-105); Aspartate Amino Transferase 52 U/L (0-32); Blood Urea Nitrogen 12 mg/dL (6-20); Calcium 8.6 mg/dL (8.5-10.5); Carbon Dioxide 21 mmol/L (22-29); Chloride 101 mmol/L (98-107); Globulin 2.5 g/dL (1.3-4.6); Glomerular Filtration Rate 113.1 mL/min (90-130); Glucose 100 mg/dL (65-115); Osmolality Calculated 278 mOsm/kg (285-295); Sodium 134 mmol/L (136-145); Total Bilirubin 0.3 mg/dL (0.15-1.2); Total Protein 6.2 g/dL (6.6-8.7)
[2022-03-08 18:28] LABS: Anion Gap 15.6 (5-19); Potassium 3.6 mmol/L (3.5-5.1)
[2022-03-09 07:55] LABS: Miscellaneous Test See Scanned Lab Rpt
== END 2022-03-08 15:53 | disposition home or self-care (01) ==
PROVIDERS: PCP Nurse Practitioner Family; Visit Provider Internal Medicine
DX: R70.0 Elevated erythrocyte sedimentation rate (principal); R76.8 Other specified abnormal immunological findings in serum; Z79.899 Other long term (current) drug therapy
CPT/HCPCS: 80053; 85025; 85651; 86140

== ENCOUNTER → 2022-03-17 08:15 | Outpatient (BNVA) | payer MEDICAID, SELFPAY | PROVIDERS: PCP Nurse Practitioner Family; Visit Provider Internal Medicine | DX: M53.3 Sacrococcygeal disorders, not elsewhere classified (principal); R76.8 Other specified abnormal immunological findings in serum; R70.0 Elevated erythrocyte sedimentation rate; Z79.899 Other long term (current) drug therapy | CPT/HCPCS: 99214 ==

== ENCOUNTER 2022-08-30 12:06 | Outpatient (CLI) | payer BC, MEDICAID, SELFPAY ==
[2022-08-30 12:55] LABS: Add Urine Microscopic? NO; Charge for UA Resulting for Rev
[2022-08-30 13:05] LABS: Basophils # 0.1 10^3/uL (0.0-0.1); Eosinophils # 0.2 10^3/uL (0.0-0.8); Eosinophils % 3.1 %; Hematocrit 39.7 % (37.0-47.0); Hemoglobin 12.8 g/dL (11.5-15.3); Lymphocytes # 2.2 10^3/uL (0.8-4.8); Lymphocytes % 45.6 %; Mean Corpuscular HGB Conc 32.2 g/dL (30.0-36.0); Mean Corpuscular Hemoglobin 28.5 pg (28.0-34.0); Mean Corpuscular Volume 88.4 fl (81-99); Mean Platelet Volume 9.7 fL (7.4-10.4); Monocytes # 0.4 10^3/uL (0.2-0.9); Monocytes % 7.2 %; Neutrophils # 2.08 10^3/uL (1.8-7.7); Neutrophils % 42.7 %; Nucleated Red Blood Cells % 0 %; Platelet Count 335 10^3/cmm (130-400); Red Blood Count 4.49 10^6/uL (4.1-5.3); Red Cell Distribution Width 13.5 % (12.1-15.1); White Blood Count 4.9 10^3/uL (4.0-10.0)
[2022-08-30 13:08] LABS: Erythrocyte Sedimentation Rate 10 mm/hr (0-15)
[2022-08-30 13:11] LABS: Bilirubin Urine Neg (Negative); Blood Urine Neg (Negative); Glucose Urine UA Norm (Normal); Ketones Urine Negative (Negative); Leukocyte Esterase Urine Negative (Negative); Nitrate Urine Negative (Negative); Protein Urine Neg (Negative); Specific Gravity, Urine 1.015 (1.005-1.030); Urine Appearance Clear (CLEAR); Urine Color Yellow (Yellow); Urobilinogen Urine Norm (Negative); pH Urine 5 (5-7)
[2022-08-30 13:27] LABS: Alanine Aminotransferase 19 U/L (0-33); Albumin Level 4.1 g/dL (3.5-5.2); Alkaline Phosphatase 70 U/L (35-105); Anion Gap 14.8 (5-19); Aspartate Amino Transferase 22 U/L (0-32); Blood Urea Nitrogen 10 mg/dL (6-20); Calcium 8.8 mg/dL (8.5-10.5); Carbon Dioxide 24 mmol/L (22-29); Chloride 100 mmol/L (98-107); Globulin 2.7 g/dL (1.3-4.6); Glomerular Filtration Rate 94.2 mL/min (90-130); Glucose 94 mg/dL (65-115); Osmolality Calculated 279 mOsm/kg (285-295); Potassium 3.8 mmol/L (3.5-5.1); Sodium 135 mmol/L (136-145); Total Bilirubin 0.4 mg/dL (0.15-1.2); Total Protein 6.8 g/dL (6.6-8.7)
[2022-08-30 14:09] LABS: Chol HDL Ratio 2.55 mg/dL (0.0-4.40); Cholesterol 204 mg/dL (0-200); Free T4 Free Thyroxine 1.28 ng/dL (0.82-1.77); HDL Cholesterol 80 mg/dL (60-100); LDL Cholesterol Calculated 115 mg/dL (50-129); LDL HDL Ratio 1.44 RATIO (0.00-3.22); Thyroid Stimulating Hormone 1.46 uIU/mL (0.27-4.20); Triglycerides 46 mg/dL (0-150)
== END 2022-08-30 12:07 | disposition home or self-care (01) ==
LOC: LAB 12:11
PROVIDERS: PCP Nurse Practitioner Family; Visit Provider Internal Medicine
DX: M54.17 Radiculopathy, lumbosacral region (principal); Z79.899 Other long term (current) drug therapy
CPT/HCPCS: 36415; 80053; 80061; 81003; 84439; 84443; 85025; 85651; 86140

== ENCOUNTER → 2022-11-17 16:16 | Outpatient (BNVA) | payer BC, MEDICAID, SELFPAY | PROVIDERS: PCP Nurse Practitioner Family; Visit Provider Internal Medicine | DX: R76.8 Other specified abnormal immunological findings in serum (principal) | CPT/HCPCS: 72072; 72100; 80053; 82550; 85025; 85651; 86140; 86480 ==

== ENCOUNTER → 2023-03-23 13:00 | Outpatient (BNVA) | payer BC, MEDICAID, SELFPAY | PROVIDERS: PCP Nurse Practitioner Family; Visit Provider Internal Medicine | DX: R76.8 Other specified abnormal immunological findings in serum (principal); R70.0 Elevated erythrocyte sedimentation rate; M53.3 Sacrococcygeal disorders, not elsewhere classified | CPT/HCPCS: 36415; 80053; 85025; 85651; 86140 ==

== ENCOUNTER 2023-05-11 13:41 | Outpatient (CLI) | payer BC, MEDICAID, SELFPAY ==
[2023-05-11 14:29] LABS: Basophils % 0.5 %; Eosinophils # 0.1 10^3/uL (0.0-0.8); Eosinophils % 1.8 %; Hematocrit 41.6 % (36-47); Lymphocytes # 2.6 10^3/uL (0.8-4.8); Lymphocytes % 32.7 %; Mean Corpuscular HGB Conc 33.9 g/dL (30-55); Mean Corpuscular Hemoglobin 29.8 pg (27-33); Mean Corpuscular Volume 87.9 fl (85-98); Mean Platelet Volume 10.1 fL (7.4-10.4); Monocytes # 0.6 10^3/uL (0.2-0.9); Monocytes % 7.2 %; Neutrophils # 4.58 10^3/uL (1.8-7.7); Neutrophils % 57.4 %; Nucleated Red Blood Cells % 0 %; Platelet Count 232 10^3/cmm (157-399); Red Blood Count 4.73 10^6/uL (3.85-5.65); Red Cell Distribution Width 14.9 % (12.1-15.1); White Blood Count 7.96 10^3/uL (3.29-11.43)
[2023-05-11 14:51] LABS: Albumin Level 4.5 g/dL (3.5-5.2); Alkaline Phosphatase 52 U/L (35-105); Blood Urea Nitrogen 18 mg/dL (6-20); Calcium 9.1 mg/dL (8.5-10.5); Carbon Dioxide 23 mmol/L (22-29); Chloride 96 mmol/L (98-107); Globulin 2.1 g/dL (1.3-4.6); Glomerular Filtration Rate 70.5 mL/min (90-130); Glucose 82 mg/dL (65-115); Osmolality Calculated 281 mOsm/kg (285-295); Sodium 135 mmol/L (136-145); Total Bilirubin 0.4 mg/dL (0.15-1.2); Total Protein 6.6 g/dL (6.6-8.7)
[2023-05-11 14:54] LABS: Anion Gap 20.3 (5-19); Potassium 4.3 mmol/L (3.5-5.1)
[2023-05-11 14:55] LABS: Alanine Aminotransferase 22 U/L (0-33); Aspartate Amino Transferase 30 U/L (0-32)
== END 2023-05-11 13:42 | disposition home or self-care (01) ==
LOC: LAB 13:48
PROVIDERS: Internal Medicine; PCP Nurse Practitioner Family; Visit Provider Nurse Practitioner Family
DX: R76.8 Other specified abnormal immunological findings in serum (principal); M53.3 Sacrococcygeal disorders, not elsewhere classified; R70.0 Elevated erythrocyte sedimentation rate
CPT/HCPCS: 36415; 80053; 85025

== ENCOUNTER → 2023-06-22 11:59 | Outpatient (BNVA) | payer BC, MEDICAID, SELFPAY | PROVIDERS: PCP Nurse Practitioner Family; Visit Provider Internal Medicine | DX: M53.3 Sacrococcygeal disorders, not elsewhere classified (principal); R76.8 Other specified abnormal immunological findings in serum; M54.2 Cervicalgia; M47.812 Spondylosis without myelopathy or radiculopathy, cervical region | CPT/HCPCS: 72040 ==

== ENCOUNTER 2023-12-15 16:12 | Outpatient (CLI) | payer BC, MEDICAID, SELFPAY ==
[2023-12-15 16:35] LABS: Basophils % 0.1 %; Hematocrit 39.6 % (36-47); Lymphocytes # 0.6 10^3/uL (0.8-4.8); Mean Corpuscular HGB Conc 32.8 g/dL (30-55); Mean Corpuscular Volume 91.2 fl (85-98); Mean Platelet Volume 10.3 fL (7.4-10.4); Monocytes # 0.3 10^3/uL (0.2-0.9); Monocytes % 3.6 %; Neutrophils # 7.46 10^3/uL (1.8-7.7); Neutrophils % 88.9 %; Nucleated Red Blood Cells % 0 %; Platelet Count 310 10^3/cmm (157-399); Red Blood Count 4.34 10^6/uL (3.85-5.65); Red Cell Distribution Width 13.7 % (12.1-15.1); White Blood Count 8.39 10^3/uL (3.29-11.43)
[2023-12-15 17:08] LABS: Alanine Aminotransferase 11 U/L (0-33); Albumin Level 4.4 g/dL (3.5-5.2); Alkaline Phosphatase 59 U/L (35-105); Aspartate Amino Transferase 14 U/L (0-32); Globulin 2.8 g/dL (1.3-4.6); Glomerular Filtration Rate 80.3 mL/min (90-130); Total Bilirubin 0.2 mg/dL (0.15-1.2); Total Protein 7.2 g/dL (6.6-8.7)
== END 2023-12-15 16:13 | disposition home or self-care (01) ==
LOC: LAB 16:13
PROVIDERS: PCP Nurse Practitioner Family; Visit Provider Internal Medicine Rheumatology
DX: Z79.899 Other long term (current) drug therapy (principal)
CPT/HCPCS: 80076; 82565; 85025; 86140

== ENCOUNTER 2023-12-27 15:00 | Emergency (ER) | payer BC, MEDICAID, SELFPAY ==
--- NOTE | 2023-12-27 15:01 | XR_ITS ---
WS: [id number], AP view, 12/27/2023 Clinical Data: abd pain Comparison: KUB, 07/28/2011 Findings: No abnormal intraabdominal masses or calcifications are seen. There is no dilatated small bowel or ev idence of obstruction. There is a large amount of fecal material throughout the colon. There are cholecystectomy clips in th e right upper quadrant. XR/XR KUB portable [id number] Impression: Large amount of fecal material in the colon.
[2023-12-27 15:05] VITALS: BP 124/84; PULSE 117; RESP 18; TEMP 37.2; O2SAT 97; BMI 22.6
[2023-12-27 16:42] LABS: Basophils % 0.1 %; Eosinophils % 0.1 %; Hematocrit 41.7 % (36-47); Lymphocytes # 0.3 10^3/uL (0.8-4.8); Lymphocytes % 4.1 %; Mean Corpuscular HGB Conc 33.1 g/dL (30-55); Mean Corpuscular Hemoglobin 30.2 pg (27-33); Mean Corpuscular Volume 91.2 fl (85-98); Mean Platelet Volume 10.6 fL (7.4-10.4); Monocytes # 0.1 10^3/uL (0.2-0.9); Monocytes % 2.1 %; Neutrophils # 6.31 10^3/uL (1.8-7.7); Neutrophils % 92.9 %; Nucleated Red Blood Cells % 0 %; Platelet Count 251 10^3/cmm (157-399); Red Blood Count 4.57 10^6/uL (3.85-5.65); Red Cell Distribution Width 13.4 % (12.1-15.1)
[2023-12-27] MEDS: lactulose oral liq 20 gm/30 mL UDC 30 GM PO (16:51)
[2023-12-27] MEDS: Fleet Enema 133 mL Enema PR (16:52)
[2023-12-27 17:00] LABS: Alanine Aminotransferase 39 U/L (0-33); Albumin Level 4.4 g/dL (3.5-5.2); Alkaline Phosphatase 57 U/L (35-105); Anion Gap 11.7 (5-19); Aspartate Amino Transferase 40 U/L (0-32); Blood Urea Nitrogen 21 mg/dL (6-20); Calcium 8.6 mg/dL (8.5-10.5); Carbon Dioxide 33 mmol/L (22-29); Chloride 96 mmol/L (98-107); Creatinine Clr Calc Pharmacy 73.1384; Globulin 2.7 g/dL (1.3-4.6); Glomerular Filtration Rate 70.1 mL/min (90-130); Glucose 159 mg/dL (65-115); HCG, Serum Qual Negative (Negative); Lipase 55 U/L (13-60); Osmolality Calculated 290 mOsm/kg (285-295); Potassium 3.7 mmol/L (3.5-5.1); Sodium 137 mmol/L (136-145); Total Bilirubin 0.3 mg/dL (0.15-1.2); Total Protein 7.1 g/dL (6.6-8.7)
--- NOTE | 2023-12-27 17:06 | ED_ITS ---
HPI - Abdominal Pain 2 General: Chief Complaint: Abdominal Pain Stated Complaint: constipated, abd pain Time Seen by Provider: 12/27/23 16:24 Source: patient Mode of arrival: ambulatory Limitations: no limitations History of Present Illness: 38-year-old female states she has been h aving severe constipation along with abdominal pain. She states she cannot remove the last time she had a bowel movement she been taking Colace and milk of mag with no relief she states she is only had a few small stools states she has pain in her rectum as well and can tell that she is constipated she denies any vomiting denies any fevers. Associated Symptoms: Reports constipation; Denies chills, diarrhea, fever(s), nausea and vomiting Review of Systems 2 Const: Denies: fever(s), chills, body aches or change in appetite ENMT: Denies: throat pain or dental pain Card: Denies: chest pain Resp: Denies: dyspnea GI: Reports: abdominal pain and constipation; Denies: nausea, vomiting or diarrhea Musc: Denies: neck pain or back pain Skin/Breast: Denies: rash Neuro: Denies: headache(s) PFSH ED 2 PFSH: Medical History (Updated 12/27/23 @ 18:18 by Ben Weeks MD) Immunization counseling High risk medication use Inflammatory arthritis Neck pain History of fibromyalgia History of IBS Family history of GERD Encounter for long-term use of opiate analgesic Neuropathy, lumbosacral (radicular) Chronic neck pain Chronic bilateral low back pain with bilateral sciatica Surgical History S/P laparoscopic cholecystectomy 2008 History of wisdom tooth extraction 2002 S/P arthroscopic knee surgery RIGHT 2001 Family History Other Cancer Diabetes Social History Smoking and tobacco/nicotine status: never used tobacco/nicotine Alcohol intake: never Substance/Drug Use: never Physical Exam 2 Const: COMMON NORMALS: no acute distress, patient oriented x3 and healthy appearing HENMT: COMMON NORMALS: normocephalic and atraumatic HEAD & SCALP: n ormocephalic and atraumatic Neck/C-Spine: COMMON NORMALS: full ROM and supple Chest: COMMONS NORMALS: normal inspection of the chest Resp: COMMON NORMALS: normal respiratory effort Cardio: COMMON NORMALS: regular rate, regular rhythm and No murmurs present (Cardio) RATE: regular rate RHYTHM: regular rhythm GI: COMMON NORMALS: Normal to inspection, nondistended, normoactive bowel sounds present, Soft to palpation, non-tender and no masses PALPATION: Yes Soft to palpation Extremity: COMMON NORMALS: normal to inspection and full ROM Neuro: COMMON NORMALS: patient oriented x3, moves all extremities and no focal motor deficits Psych: COMMON NORMALS: mental status grossly normal, Normal thought process present and cooperative THOUGHT PROCESS: Normal thought process present Skin: COMMON NORMALS: no rashes or lesions noted and no wounds GENERAL SKIN EXAM: no rashes or lesions noted Course 2 Vital Signs: Vital signs: Vital Signs Temperature 98.9 F 12/27/23 15:05 Pulse Rate 89 12/27/23 18:09 Respiratory Rate 18 12/27/23 15:05 Blood Pressure 118/95 12/27/23 18:09 Pulse Oximetry 97 12/27/23 18:09 Oxygen Delivery Me thod Room Air 12/27/23 18:09 MDM - Abdominal Pain Medical Decision Making Patient presents here with constipation she is able have a bowel movement here she feels much improved she stable for discharge follow-up with PCP return if worsening. Medical Records I reviewed the patient's medical records. Lab Data I reviewed the patient's lab results. 12/27/23 16:24 12/27/23 16:24 Labs/Radiology: Radiology Impressions KUB X-Ray 12/27/23 15:01 Impression: Large amount of fecal material in the colon. Laboratory Results WBC 6.80 10^3/uL (3.29-11.43) 12/27/23 16:24 RBC 4.57 10^6/uL (3.85-5.65) 12/27/23 16:24 Hgb 13.80 g/dL (11.27-16.99) 12/27/23 16:24 Hct 41.7 % (36-47) 12/27/23 16:24 MCV 91.2 fl (85-98) 12/27/23 16:24 MCH 30.2 pg (27-33) 12/27/23 16:24 MCHC 33.1 g/dL (30-55) 12/27/23 16:24 RDW 13.4 % (12.1-15.1) 12/27/23 16:24 Plt Count 251 10^3/cmm (157-399) 12/27/23 16:24 MPV 10.6 fL (7.4-10.4) H 12/27/23 16:24 Neut % (Auto) 92.9 % 12/27/23 16: Lymph % (Auto) 4.1 % 12/27/23 16:24 Monroe % (Auto) 2.1 % 12/27/23 16:24 Eos % (Auto) 0.1 % 12/27/23 16: Baso % (Auto) 0.1 % 12/27/23 16: Neut # (Auto) 6.31 10^3/uL (1.8-7.7) 12/27/23 16:24 Lymph # (Auto) 0.3 10^3/uL (0.8-4.8) L 12/27/23 16:24 Monroe # (Auto) 0.1 10^3/uL (0.2-0.9) L 12/27/23 16:24 Eos # (Auto) 0.0 10^3/uL (0.0-0.8) 12/27/23 16: Baso # (Auto) 0.0 10^3/uL (0.0-0.1) 12/27/23 16:24 Nucleated RBC % (auto) 0 % 12/27/23 16: Nucleated RBCs # 0.0 /100WBC 12/27/23 16:24 Sodium 137 mmol/L (136-145) 12/27/23 16:24 Potassium 3.7 mmol/L (3.5-5.1) 12/27/23 16:24 Chloride 96 mmol/L (98-107) L 12/27/23 16:24 Carbon Dioxide 33 mmol/L (22-29) H 12/27/23 16:24 Anion Gap 11.7 (5-19) 12/27/23 16:24 BUN 21 mg/dL (6-20) H 12/27/23 16:24 Creatinine 0.9 mg/dL (0.5-0.9) 12/27/23 16:24 GFR Calculation 70.1 mL/min (90-130) L 12/27/23 16:24 Glucose 159 mg/dL (65-115) H 12/27/23 16:24 Calculated Osmolality 290 mOsm/kg (285-295) 12/27/23 16:24 Calcium 8.6 mg/dL (8.5-10.5) 12/27/23 16:24 Total Bilirubin 0.3 mg/dL (0.15-1.2) 12/27/23 16:24 AST 40 U/L (0-32) H 12/27/23 16:24 ALT 39 U/L (0-33) H 12/27/23 16:24 Alkaline Phosphatase 57 U/L (35-105) 12/27/23 16:24 Total Protein 7.1 g/dL (6.6-8.7) 12/27/23 16:24 Albumin 4.4 g/dL (3.5-5.2) 12/27/23 16:24 Globulin 2.7 g/dL (1.3-4.6) 12/27/23 16:24 Lipase 55 U/L (13-60) 12/27/23 16:24 HCG, Qual Negative (Negative) 12/27/23 16:24 All radiology interpretation(s) finalized by discharge Discharge Plan Discharge Patient Disposition: Home Clinical Impression: Constipation Condition: Stable Prescriptions: No Action levocetirizine [Xyzal] 5 mg tablet 5 mg PO DAILY azelastine 0.15 % (205.5 mcg) spray,non-aerosol 2 spray INTRANASAL BID epinephrine 0.3 mg/0.3 mL auto-injector 0.3 mg IM Q10M PRN Rx Instructions: for 2 doses ondansetron HCl [Zofran] 4 mg tablet 4 mg PO Q8H pantoprazole [Protonix] 40 mg tablet,delayed release (DR/EC) 40 mg PO QDAY Nurtec ODT 75 mg tablet,disintegrating PO baclofen 20 mg tablet 20 mg PO BID ofloxacin 0.3 % drops 10 drp otic (ear) DAILY 7 Days Qty: 5 0RF celecoxib [Celebrex] 100 mg capsule 100 mg PO BID Qty: 180 1RF folic acid 1 mg tablet 2 mg PO DAILY Qty: 180 1RF hydroxychloroquine 200 mg tablet 200 mg PO BID Qty: 180 1RF leflunomide 20 mg tablet 20 mg PO DAILY Qty: 30 5RF pregabalin [Lyrica] 100 mg capsule 100 mg PO BID Qty: 60 5RF prednisone 20 mg tablet See Rx Instructions PO .COMPLEX PRN (Reason: joint pain flare) Qty: 30 1RF Rx Instructions: take 1 or 2 tab daily for 3-7 days as needed for arthritis flare PO PRN; Discharge Orders: Discharge ED (Routine); Ordered 12/27/23 Ordered By: Ben Weeks Referrals: Connor,BARB BautistaN [Primary Care Provider] - Discharge Diet: Advance as tolerated Discharge Activity: Resume usual activity Patient Instructions: Constipation (ED) Coding Level of Care Code ED Dump Grounds Checker for Carin Renteria
[2023-12-27 18:09] VITALS: BP 118/95; PULSE 89; O2SAT 97
[2023-12-27 18:27] VITALS: BP 118/95; PULSE 89; O2SAT 97
[2023-12-27 18:51] LABS: Specific Gravity, Urine 1.015 (1.005-1.030); Urine Appearance Slightly Cloudy (CLEAR); Urine Color Yellow (Yellow); pH Urine 7 (5-7)
[2023-12-27 18:52] LABS: Add Urine Microscopic? YES; Bilirubin Urine Neg (Negative); Blood Urine Neg (Negative); Glucose Urine UA Norm (Normal); Ketones Urine 1+ (Negative); Leukocyte Esterase Urine Negative (Negative); Nitrate Urine Negative (Negative); Protein Urine Neg (Negative); Urobilinogen Urine Norm (Negative)
[2023-12-27 19:14] LABS: Add Urine Culture? No; Amorphous Sediment Urine 1+ /hpf; Bacteria Urine 1+ /hpf; Mucus Urine TRACE /hpf; RBC Urine RARE /hpf (0-2); Squamous Epithelial Cell Urine 0-4 /hpf (0-5)
== END 2023-12-27 18:30 | disposition home or self-care (01) ==
PROVIDERS: Emergency Provider Emergency Medicine; PCP Nurse Practitioner Family
DX: K59.00 Constipation, unspecified (principal)
CPT/HCPCS: 74018; 80053; 81001; 83690; 84703; 85025; 99284

== ENCOUNTER → 2024-01-30 16:34 | Outpatient (BNVA) | payer BC, MEDICAID, SELFPAY | PROVIDERS: PCP Nurse Practitioner Family; Visit Provider Emergency Medicine | DX: M54.9 Dorsalgia, unspecified (principal); R10.9 Unspecified abdominal pain | CPT/HCPCS: 81000; 87086 ==

== ENCOUNTER → 2024-05-09 13:56 | Outpatient (BNVA) | payer BC, MEDICAID, SELFPAY | PROVIDERS: PCP Nurse Practitioner Family; Visit Provider Internal Medicine Rheumatology | DX: M19.90 Unspecified osteoarthritis, unspecified site (principal); Z79.899 Other long term (current) drug therapy | CPT/HCPCS: 36415; 80076; 82565; 85025; 85651; 86140 ==

== ENCOUNTER → 2024-06-18 09:43 | Outpatient (BNVA) | payer BC, SELFPAY | PROVIDERS: PCP Nurse Practitioner Family; Referring Provider Nurse Practitioner Family; Visit Provider Psychiatry & Neurology Neurology | DX: G43.909 Migraine, unspecified, not intractable, without status migrainosus (principal); E55.9 Vitamin D deficiency, unspecified; E53.9 Vitamin B deficiency, unspecified | CPT/HCPCS: 36415; 82652; 82746; 83090; 83735; 83921 ==

== ENCOUNTER → 2024-09-05 14:09 | Outpatient (BNVA) | payer BC, SELFPAY | PROVIDERS: PCP Nurse Practitioner Family; Visit Provider Internal Medicine Rheumatology | DX: Z79.899 Other long term (current) drug therapy (principal) | CPT/HCPCS: 36415; 86480; 86704; 86803; 87340 ==

== ENCOUNTER 2024-11-21 13:24 | Outpatient (CLI) | payer BC, SELFPAY ==
--- NOTE | 2024-11-21 13:45 | MR_ITS ---
WS: [id number] MRI HEAD WITH CONTRAST TECHNIQUE: Sagittal T1, T2 axial, T2 axial FLAIR, axial susceptibility weighted imaging, axial diffusion weighted images, and coronal T2 images were obtained. Pre and post-T1 axial and post T1 coronal images. ADC and FSPGR images. CLINICAL INFORMATION: G43.111 - Migraine with aura, intractable, with status mi... COMPARISON: None. FINDINGS: Extra-axial enhancing RIGHT CP angle soft tissue mass measuring approximately 1.9 x 1.5 x 1.9 cm AP by transverse by craniocaudal. Associated indentation on the RIGHT brachium pontis. No underlying edema. Lesion is posterior to the IAC. Evidence of small enhancing dural tails. Findings suspicious for meningioma versus schwannoma. No definite involvement of the porus acusticus. 7th and 8th cranial nerves appear normal. Normal trigeminal nerve root entry zones. No evidence of restricted diffusion to suggest acute ischemia. Normal vascular flow voids at the skull base. No extra-axial fluid collections. Paranasal sinuses and mastoid air cells are well aerated. No hemosiderin. No other acute findings. MR/MR head wo/w con [id number] IMPRESSION: 1. Enhancing RIGHT CP angle mass described above compatible with meningioma ve rsus schwannoma. Recommend neurosurgery consultation. 2. A few tiny punctate foci of T2 signal abnormality in the periventricular an d frontal white matter nonspecific in a patient of this age but can be seen wit h migraine headaches. 3. No other acute findings.
[2024-11-21] MEDS: gadobenate dimeglumine 20 mL vial 18 ML IV (14:20)
== END 2024-11-21 13:25 | disposition home or self-care (01) ==
PROVIDERS: PCP Nurse Practitioner Family; Visit Provider Psychiatry & Neurology Neurology
DX: G43.111 Migraine with aura, intractable, with status migrainosus (principal); M54.17 Radiculopathy, lumbosacral region; G89.29 Other chronic pain; R93.0 Abnormal findings on diagnostic imaging of skull and head, not elsewhere classified
CPT/HCPCS: 70553

== ENCOUNTER → 2024-12-26 15:17 | Outpatient (BNVA) | payer BC, SELFPAY | PROVIDERS: PCP Nurse Practitioner Family; Visit Provider Internal Medicine Rheumatology | DX: Z79.899 Other long term (current) drug therapy (principal) | CPT/HCPCS: 80076; 82565; 85025; 85651; 86140 ==

== ENCOUNTER 2025-05-02 15:34 | Emergency (ER) | payer BC, SELFPAY ==
[2025-05-02 15:36] VITALS: BP 167/108; PULSE 107; RESP 18; O2SAT 97
--- NOTE | 2025-05-02 15:36 | XRR_ITS ---
PROCEDURE INFORMATION: Exam: XR Left Knee Exam date and time: 05/02/2025 3:55 PM Age: 39 years old Clinical indication: Pain; Knee; Left; Additional info: Lt knee pain/swelling after impact injury; PT jumped from back of truck; Now unable to bear weight TECHNIQUE: Imaging protocol: Radiologic exam of the left knee. Views: 3 views. COMPARISON: No relevant prior studies available. FINDINGS: Bones/joints: Normal. Soft tissues: Normal. XR/XR knee LT 3V* [id number] IMPRESSION: No acute findings.
--- OUTSIDE RECORDS SUMMARY | 2025-05-02 15:41 | XMS_ITS | Encounter Summary ---
Author Organization [facility] Address [address] [place] [address] Care Team Providers Care Cis Coordinator Name Role Phone Shine Fuentes NP Primary Care Provider [phone] Encounter Details Date Type Department Care Team (Latest Contact Info) Description 02/27/2006 Outpatient Historical [facility] alexsander [address] [place] [phone] Renzo De La Garza II, MD [address] [phone] Screening for Malformation Using Ultrasonics (Primary Dx) Social History Tobacco Use Types Packs/Day Years Used Date Smoking Tobacco: Never Assessed Comments Unknown Sex and Gender Information Value Date Recorded Sex Assigned at Not on file Legal Sex Female 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
--- OUTSIDE RECORDS SUMMARY | 2025-05-02 15:41 | XMS_ITS | Encounter Summary ---
Author Organization [facility] Address [address] [facility] [place] [address] Care Team Providers Care Toxicologist Name Role Phone Shine Fuentes NP Primary Care Provider Encounter Details Date Type Department Care Team (Latest Contact Info) Description 04/04/2006 Outpatient Historical [facility] [place] CAN RECONDITIONER 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
--- OUTSIDE RECORDS SUMMARY | 2025-05-02 15:41 | XMS_ITS | Encounter Summary ---
Author Organization [facility] Address [address] [facility] [place] [address] Care Team Providers Care Services Executive Name Role Phone Shine Fuentes NP Primary Care Provider Encounter Details Date Type Department Care Team (Latest Contact Info) Description 05/15/2006 Outpatient Historical [facility] DOCUMENT SPECIALIST 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
--- OUTSIDE RECORDS SUMMARY | 2025-05-02 15:41 | XMS_ITS | Encounter Summary ---
Author Organization [facility] Address [address] [facility] [place] [address] Care Team Providers Care Business Account Manager Name Role Phone Shine Fuentes NP Primary Care Provider Encounter Details Date Type Department Care Team (Latest Contact Info) Description 02/27/2006 Outpatient Historical [facility] RAILROAD DINING CAR STEWARD/STEWARDESS 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
--- OUTSIDE RECORDS SUMMARY | 2025-05-02 15:41 | XMS_ITS | Encounter Summary ---
Author Organization [facility] Address [address] [place] [address] Care Team Providers Care Electronic Equipment Trades Worker Name Role Phone Shine Fuentes PRE SALES TECHNICAL ENGINEER Primary Care Provider Encounter Details Date Type Department Care Team (Latest Contact Info) Description 02/13/2006 Outpatient Historical [facility] Gastroenterology- [place] [address] [phone] José Miguel Moran MD [address] [facility] [address] [place] [phone] Nausea with Vomiting (Primary Dx) Social History Tobacco Use Types Packs/Day Years Used Date Smoking Tobacco: Never Assessed Comments Unknown Sex and Gender Information Value Date Recorded Sex Assigned at Not on file Legal Sex Female 4:27 AM SUPPORT TEAM MEMBER Gender Identity Not on file Sexual Orientation Not on file documented as of this encounter Plan of Treatment Not on file documented as of this encounter Visit Diagnoses Diagnosis Nausea with vomiting- Primary documented in this encounter Care Teams Electronic Equipment Trades Worker Relationship Specialty Start Date End Date Shine Fuentes NP PCP - General Family Practice 06/29/10 documented as of this encounter
--- OUTSIDE RECORDS SUMMARY | 2025-05-02 15:41 | XMS_ITS | Encounter Summary ---
Author Organization [facility] Address [address] [place] [address] Care Team Providers Care Steam Table Associate Name Role Phone Shine Fuentes NP Primary Care Provider Encounter Details Date Type Department Care Team (Latest Contact Info) Description 05/01/2006 Outpatient Historical [facility] SUPERVISOR OPEN HEARTH STOCKYARD 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
--- OUTSIDE RECORDS SUMMARY | 2025-05-02 15:41 | XMS_ITS | Clinical Summary ---
Author Organization [facility] Address [address] [place] [address] Phone Care Team Providers Care Architect In Training Name Role Phone Shine Fuentes NP Primary Care Provider Allergies Active Allergy Reactions Criticality Noted Date Comments Codeine Rash Low 06/29/2010 Penicillins Rash Low 06/29/2010 Sulfa (Sulfonamide Antibiotics) Rash Low 06/08 Medications RANITIDINE HCL (ZANTAC ORAL) Take by mouth. Active clindamycin phosphate (CLEOCIN T) 1 % Topical GelIndications: Other acne Apply to affected area 2 times daily. 1 Tube 3 12/30/2010 Active PNV#18-Iron,Car b-FA-CoQ 10-DHA (PREQUE 10) 15-0.5-50-50 mg Oral Tab Take 2 Tabs by mouth daily. 12/30/2010 Active ranitidine (ZANTAC) 150 mg Oral tablet Take 1 Tab by mouth 2 times daily. 60 Tab 6 01/27/2011 Active Guaifenesin (MUCINEX) 1,200 mg Oral TM12 Take by mouth 2 times daily. 05/27/2011 Active acetaminophen (TYLENOL) 325 mg Oral tablet Take 650 mg by mouth every 4 hours as needed. Active HYDROcodone-kory taminophen (NORCO) 5-325 mg Oral tablet Take 1 Tab by mouth every 4 hours as needed (For Pain Scale 4-6). 20 Tab 0 05/29/2011 Active ibuprofen (MOTRIN) 800 mg Oral tablet Take 1 Tab by mouth every 8 hours as needed for Pain. 30 Tab 1 05/29/2011 Active Active Problems Problem Noted Date Diagnosed Date Other acne 12/30/2010 Supervision of other normal 12/30/2010 Late care 12/30/2010 GERD (gastroesophageal reflux disease) 1 Overview (12/30/2010): Hx of esophagitis with workup Dr Moran; elsa use of prilosec and zantac Immunizations Immunization Administration Dates Next Due (ADACEL/BOOSTRIX)(10 YR UP) TDAP VACCINE, 0.5ML, IM 05/29/2011 (M-M-R II/PRIORIX)(12 MO UP) MEASLES, MUMPS AND RUBELLA VIRUS VACCINE, 0.5 ML IM/SUBCUT 03/22/1995,02/28/1990 (TDVAX)(7 YRS UP) TETANUS AN D DIPHTHERIA TOXOIDS, ADSORBED (2 LF OF TETANUS TOXOID AND 2 LF OF DIPHTHERIA TOXOID), 0.5ML (PF), IM 03/07/2001 Dt Dtp Dtap Vaccine 03/21/1991 Hepatitis A Vaccine 10/21/1998,06/01/1998,1997 Hepatitis B Vaccine 04/08/1998,09/17/1997,1997 IPV/OPV 03/21/1991 Influenza Vaccine Split 3+ Yrs PF IM 05/06/2011 Family History Medical History Relation Name Comments Other Father Mentally Unstab le Hypertension Maternal Grandfather Hypertension Maternal Grandmother Healthy Mother Diabetes Paternal Grandfather Hypertension Paternal Grandfather Hypertension Paternal Grandmother Other Sister 1 Rima Pulmonary Steno sis Other Sister 2 [place] Mental issues Healthy Sister 3 Babs Relation Name Status Comments Father Maternal Grandfather Maternal Grandmother Mother Paternal Grandfather Paternal Grandmother Sister 1 Rima Sister 2 [place] Sister 3 Babs Social History Tobacco Use Types Packs/Day Years Used Date Smoking Tobacco: Former Cigarettes 0.5 7 0 09/07/2003 - 09/07/2010 Smokeless Tobacco: Never Alcohol Use Standard Drinks/Week Comments No 0 (1 standard drink = 0.6 oz pur e alcohol) Comments Unknown Sex and Gender Information Value Date Recorded Sex Assigned at Not on file Legal Sex Female 4:27 AM JANITOR Gender Identity Not on file Sexual Orientation Not on file Last Filed Vital Signs Vital Sign Reading Time Taken Comments Blood Pressure 113/80 05/29/2011 7:30 AM CDT Pulse 82 05/29/2011 7:30 AM CDT Temperature 37.1 C (98.8 F) 05/29/2011 7:30 AM CDT Respiratory Rate 16 05/29/2011 7:30 AM CDT Oxygen Saturation 97% 05/29/2011 7:30 AM CDT Inhaled Oxygen Concentration - - Weight 78.9 kg (174 lb) 05/27/2011 5:05 AM CDT Height 157.5 cm (5' 2 ) 05/27/2011 5:05 AM CDT Body Mass Index 31.83 05/27/2011 5:05 AM CDT Plan of Treatment Health Maintenance Due Date Last Done Comments HPV VACCINES (1 - 3-dose SCD M series) 2012 PAP SMEAR 2015 12/30/2010, 07/12/2010 CERVICAL CANCER SCREENING 12/31/2015 HPV/Cotest (21-29) 12/31/2015 12/30/2010, 07/12/2010 HPV/Cotest (30-65) 12/31/2015 12/30/2010, 07/12/2010 DTAP/TDAP/TD VACCINES (4 - T d or Tdap) 05/29/2021 05/29/2011, 03/07/2001, 03/21/1991 INFLUENZA VACCINE (#1) 2025 05/06/2011 HEPATITIS B VACCINES Completed 04/08/1998, 09/17/1997, 08/13/1997 Procedures Procedure Name Priority Date/Time Associated Diagnosis Comments CERV/VAG CYTOPATH, THIN PREP W/RFLX HPV Routine 12/30/2010 5:47 AM CDT from Last 3 Months or Most Recently Relevant to Health Maintenance Results * CERV/VAG CYTOPATH, THIN PREP W/RFLX HPV (12/30/2010 5:47 AM CDT) TH THIN PREP CYTOLOGY REPORT REFLEX HPV [facility] Anatomic Pathology Dept [facility] [address] Patient: HORTENCIA GAN Accn No: [id number] , [id number] Collected: 12/30/2010 5:47:00 AM All cases except those with a DP prefix are performed by pathologists from [facility] at [facility]. Case type DP is performed by Dr. Salvatore Mejia, [facility], [facility], [address], [address], [place] [address] (CLIA #[id number]) (Ph. [phone]). THIN PREP PAP - REFLEX HPV History Specimen Type: Endocervical LMP: 08-25-10 Previous Pap History: 2009 WNL Specimen Adequacy Satisfactory for interpretation. Shows sufficient numbers of endocervical or metaplastic cells. Diagnosis NEGATIVE FOR INTRAEPITHELIAL LESION OR MALIGNANCY. (Prevously noted as Within Normal Limits). Director Of Materials/ EDR Pathologist: 01/12/11 Completed by: DENITA WAGNER BSCT (ASCP) (Electronically signed by) 01/12/11 Comment Routine follow-up is suggested. Important Information About Pap Smears The Pap smear is associated with a low but well-documented and probably irreducible false negative rate of up to 10%. Additionally, the false positive rate for a diagnosis of invasive carcinoma or HSIL has been estimated to be approximately 1-10%. Therefore, any visible lesion on the cervix should be biopsied regardless of Pap smear findings. HPV Testing off the Thin Prep vial can be done as a means of further evaluating a Thin Prep Report. For information about ordering the HPV test, phone Virology at . Treatment or follow-up recommendations (if any) that are contained within this report are based upon general recommendations as contained in 2001 Consensus Guidelines For Cervical Cytological Abnormalities [place]: November 28, 2001, and are provided as a general guideline rather than as a specific recommendation. Final decisions about the most appropriate treatment and follow-up should be made on an individualized basis by the treating physician in consultation with his/her patient. [facility] 12/30/2010 5:47 AM CDT us Mark Emery MD PATHOLOGY/CYTOLOGY OR DERABLES Edited INTERFACE SYSTEM Refer to clinic/hospital department [facility] CLIA# [id number] [address] [place] [address] from Last 3 Months or Most Recently Relevant to Health Maintenance Insurance MEDICAID [place] Advance Directives For more information, please contact: [phone] * Full Code (Latest Code Status on File) Date Activated Date Inactivated Comments 05/27/2011 1:32 PM 05/29/2011 3:15 PM * Full Code Date Activated Date Inactivated Comments 05/27/2011 8:22 AM 05/27/2011 1:32 PM * Full Code Date Activated Date Inactivated Comments 05/27/2011 5:16 AM 05/27/2011 8:22 AM * Full Code Date Activated Date Inactivated Comments 04/12/2011 9:10 PM 04/12/2011 9:11 PM Care Teams Architect In Training Relationship Specialty Start Date End Date Shine Fuentes NP PCP - General Family Practice 06/29/10
--- OUTSIDE RECORDS SUMMARY | 2025-05-02 15:41 | XMS_ITS | Encounter Summary ---
Author Organization [facility] Address [address] [place] [address] Care Team Providers Care Nurse Staff Community Health Name Role Phone Shine Fuentes NP Primary Care Provider Reason for Referral * Outpatient Services (Routine) - Closed Specialty Diagnoses / Procedures Referred By Contac t Referred To Contact Diagnoses Uterine size date discrepancy, antepartum condition or complication Procedures OB 14+ WKS SINGLE GEST Mark Emery MD NO ADDRESS ON FILE Referral ID Status Reason Start Date Expiration Date Visits Re quested Visits Authorized [id number] Closed 01/06/2011 07/05/2011 1 1 Encounter Details Date Type Department Care Team (Latest Contact Info) Description 01/06/2011 Ancillary Orders [facility] OBALEXIN-Sb Aden Gina [address] [place] [phone] Mark Emery MD NO ADDRESS ON FILE Uterine size date discrepancy, antepartum condition or complication Social History Tobacco Use Types Packs/Day Years Used Date Smoking Tobacco: Former Cigarettes 0.5 7 0 09/07/2003 - 09/07/2010 Smokeless Tobacco: Never Alcohol Use Standard Drinks/Week Comments No 0 (1 standard drink = 0.6 oz pur e alcohol) Comments Yes Sex and Gender Information Value Date Recorded Sex Assigned at Not on file Legal Sex Female 4:27 AM LEVEL VIAL INSIDE GRINDER Gender Identity Not on file Sexual Orientation Not on file documented as of this encounter Plan of Treatment Not on file documented as of this encounter Results * US OB 14+ WKS SINGLE GEST (01/06/2011 1:58 PM CDT) Anatomical Region Laterality Modality Pelvis Ultrasound us Mark Emery MD ORDERABLES Final Result documented in this encounter Visit Diagnoses Diagnosis Uterine size date discrepancy, antepartum condition or complication documented in this encounter Care Teams Nurse Staff Community Health Relationship Specialty Start Date End Date Shine Fuentes NP PCP - General Family Practice 06/29/10 documented as of this encounter
--- OUTSIDE RECORDS SUMMARY | 2025-05-02 15:41 | XMS_ITS | Encounter Summary ---
Author Organization [facility] Address [address] [place] [address] Care Team Providers Care Lead Security Officer Name Role Phone Unavailable Primary Care Provider Unavailabl e Encounter Details Date Type Department Care Team (Latest Contact Info) Description 03/21/2025 Results Follow-Up [facility] [address] [place] [address] Monika Meneses PA [address] [place] [address] CBC WITH DIFFERENTIAL, BASIC METABOLIC PANEL, SEDIMENTATION RATE, C-REACTIVE PROTEIN Social History Tobacco Use Types Packs/Day Years Used Date Smoking Tobacco: Former Cigarettes Q uit: 09/07/2010 Smokeless Tobacco: Never Alcohol Use Standard Drinks/Week Comments No 0 (1 standard drink = 0.6 oz pur e alcohol) Feeling Safe Answer Date Recorded Are you in a relationship wi th someone who hurts you emotionally and/or physically? No 03/04/2025 Food Insecurity Answer Date Recorded Patient needs follow up regardin 02/25/2025 Transportation Needs Answer Date Record ed Patient needs follow up regardin 02/25/2025 Utility Needs Answer Date Recorded Patient needs follow up regardin 02/25/2025 Comments No Sex and Gender Information Value Date Recorded Sex Assigned at Not on file Legal Sex Female 4:03 PM CD STORAGE AND MATERIALS MAKE UP HELPER Gender Identity Not on file Sexual Orientation Not on file documented as of this encounter Plan of Treatment Upcoming Encounters Date Type Department Care Team ( Contact Info) Description 05/29/2025 11:30 AM CDT Appointment [facility] [address] [place] [address] Monika Meneses PA [address] [place] [address] 05/29/2025 2:40 PM CDT Office Visit [facility] [address] [place] [address] Monika Meneses PA [address] [place] [address] documented as of this encounter Visit Diagnoses Not on filedocumented in this encounter
--- OUTSIDE RECORDS SUMMARY | 2025-05-02 15:41 | XMS_ITS | Encounter Summary ---
Author Organization [facility] Address [address] [facility] [place] [address] Care Team Providers Care Manager Of Hospital Name Role Phone Shine Fuentes NP Primary Care Provider Encounter Details Date Type Department Care Team (Latest Contact Info) Description 05/29/2006 Outpatient Historical [facility] CROP SPECIALIST [address] [place] [phone] Mark Emery MD NO ADDRESS ON FILE Supervision of Other Normal (Primary Dx) Social History Tobacco Use Types Packs/Day Years Used Date Smoking Tobacco: Never Assessed Comments Unknown Sex and Gender Information Value Date Recorded Sex Assigned at Not on file Legal Sex Female 4:27 AM ENDOSCOPY RN Gender Identity Not on file Sexual Orientation Not on file documented as of this encounter Plan of Treatment Not on file documented as of this encounter Visit Diagnoses Diagnosis Supervision of other normal - Primary documented in this encounter Care Teams Manager Of Hospital Relationship Specialty Start Date End Date Shine Fuentes NP PCP - General Family Practice 06/29/10 documented as of this encounter
--- OUTSIDE RECORDS SUMMARY | 2025-05-02 15:41 | XMS_ITS | Encounter Summary ---
Author Organization [facility] Address [address] [place] [address] Care Team Providers Care Returned Case Inspector Name Role Phone Shine Fuentes NP Primary Care Provider Encounter Details Date Type Department Care Team (Latest Contact Info) Description 02/01/2006 Outpatient [facility] Gastroenter[address] [place] [phone] Luana Neumann, QUARTER INSPECTOR [address] [place] [phone] Esophageal Reflux (Primary Dx); Nausea with Vomiting Social History Tobacco Use Types Packs/Day Years Used Date Smoking Tobacco: Never Assessed Comments Unknown Sex and Gender Information Value Date Recorded Sex Assigned at Not on file Legal Sex Female 4:27 AM STUDENT ACTIVITIES DIRECTOR Gender Identity Not on file Sexual Orientation Not on file documented as of this encounter Plan of Treatment Not on file documented as of this encounter Visit Diagnoses Diagnosis Esophageal reflux- Primary Nausea with vomiting documented in this encounter Care Teams Returned Case Inspector Relationship Specialty Start Date End Date Shine Fuentes NP PCP - General Family Practice 06/29/10 documented as of this encounter
--- OUTSIDE RECORDS SUMMARY | 2025-05-02 15:41 | XMS_ITS | Encounter Summary ---
Author Organization [facility] Address [address] [place] [address] Care Team Providers Care Band Saw Operator Name Role Phone Shine Fuentes GIN POLE OPERATOR Primary Care Provider [phone] Encounter Details Date Type Department Care Team (Late st Contact Info) Description 01/26/2006 Emergency [facility] Emergency Department [address] [place] [phone] Quang Calderon MD [address] [place], [place] [id number] Mild Hyperemesis Gravidarum, Antepartum (Primary Dx) Social History Tobacco Use Types Packs/Day Years Used Date Smoking Tobacco: Never Assessed Comments Unknown Sex and Gender Information Value Date Recorded Sex Assigned at Not on file Legal Sex Female 4:27 AM CHIEF PROGRAM OFFICER Gender Identity Not on file Sexual Orientation Not on file documented as of this encounter Plan of Treatment Not on file documented as of this encounter Procedures Procedure Name Priority Date/Time Associated Diagnosis Comments CBC WITH DIFFERENTIAL Routine 01/26/2006 11:30 AM CDT KETONE, QUALITATIVE, URINE Routine 01/26/2006 11:30 AM CDT URINALYSIS W/REFLEX MICROSCOPIC Routine 01/26/2006 11:30 AM CDT documented in this encounter Results * (ABNORMAL) CBC WITH DIFFERENTIAL (01/26/2006 11:30 AM CDT) WBC 9.4 4.5 - 12.5 K/ul INTERFACE SYSTEM RBC 4.18(L) 4.20 - 5.40 Mil/ul INTERFACE SYSTEM HEMOGLOBIN 12.8 12.0 - 16.0 g/dL INTERFACE SYSTEM HEMATOCRIT 37.2 36.0 - 46.0 % INTERFACE SYSTEM MCV 89.0 84.0 - 103.0 Fl INTERFACE SYSTEM MCH 30.6 27.0 - 34.0 pg INTERFACE SYSTEM MCHC 34.4 30.0 - 35.0 g/dL INTERFACE SYSTEM RDW 13.8 11.0 - 14.5 % INTERFACE SYSTEM PLATELETS 232 140 - 440 K/ul INTERFACE SYSTEM MPV 9.9 8.9 - 12.8 Fl INTERFACE SYSTEM NEUTROPHILS 84.0(H) 42.2 - 75.2 % INTERFACE SYSTEM LYMPHOCYTES 11.6(L) 24.0 - 44.0 % INTERFACE SYSTEM MONOCYTES 4.1 2.0 - 10.0 % INTERFACE SYSTEM EOSINOPHILS 0.2 0.0 - 7.0 % INTERFACE SYSTEM BASOPHILS 0.1 0.0 - 1.0 % INTERFACE SYSTEM NEUTROPHIL ABSOLUTE 7.9 2.0 - 8.0 K/uL INTERFACE SYSTEM LYMPHOCYTE ABSOLUTE 1.1(L) 1.2 - 4.0 K/ul INTERFACE SYSTEM MONOCYTE ABSOLUTE 0.4 0.1 - 0.6 K/ul INTERFACE SYSTEM EOSINOPHIL ABSOLUTE 0.0 0.0 - 0.7 K/ul INTERFACE SYSTEM BASOPHILS ABSOLUTE 0.0 0.0 - 0.2 K/ul INTERFACE SYSTEM 01/26/2006 11:3 0 AM CDT Quang Calderon MD HEMATOLOGY ORDERABLES Martine l Result INTERFACE SYSTEM Refer to clinic/hospital department * (ABNORMAL) ACETONE QUALITATIVE, URINE (01/26/2006 11:30 AM CDT) Pathologist [facility] KETONES UA Large(A) Negative INTERFACE SYSTEM 01/26/2006 11:3 0 AM CDT Quang Calderon MD URINE ORDERABLES Final Res ult INTERFACE SYSTEM Refer to clinic/hospital department * URINALYSIS (01/26/2006 11:30 AM CDT) COLOR UA Yellow Straw INTERFACE SYSTEM CLARITY UA Clear Clear INTERFACE SYSTEM LEUKOCYTE ESTERASE UA NEGATIVE NEGATIVE INTERFACE SYSTEM NITRITE UA NEGATIVE NEGATIVE INTERFACE SYSTEM PH UA 7.5 5.0 - 9.0 INTERFACE SYSTEM PROTEIN UA NEGATIVE NEGATIVE INTERFACE SYSTEM Comment: As of 05 positive protein results obtained on routine urinalysis will not be confirmed by sulfosalicylic acid (SSA) precipitation. Current methodology for protein detection is highly sensitive for detection of albumin; therefore, confirmation is not necessary. GLUCOSE UA NEGATIVE NEGATIVE INTERFACE SYSTEM UROBILINOGEN UA 0.2 0.2 INTE RFACE SYSTEM BILIRUBIN UA NEGATIVE NEGATIVE INTERFA CE SYSTEM BLOOD UA NEGATIVE NEGATIVE INTERFACE SYSTEM SPECIFIC GRAVITY UA 1.025 1.005 - 1.030 INTERFACE SYSTEM MICRO EXAM No No INTERFACE SYSTEM 01/26/2006 11:3 0 AM CDT us Quang Calderon MD URINE ORDERABLES Final Res ult INTERFACE SYSTEM Refer to clinic/hospital department documented in this encounter Visit Diagnoses Diagnosis Mild hyperemesis gravidarum, antepartum- Primary documented in this encounter Care Teams Band Saw Operator Relationship Specialty Start Date End Date Shine Fuentes NP PCP - General Family Practice 06/29/10 documented as of this encounter
--- OUTSIDE RECORDS SUMMARY | 2025-05-02 15:41 | XMS_ITS | Encounter Summary ---
Author Organization [facility] Address [address] [place] [address] Care Team Providers Care Physician Specialist Name Role Phone Shine Fuentes NP Primary Care Provider Encounter Details Date Type Department Care Team (Latest Contact Info) Description 04/18/2006 Outpatient Historical [facility] [employer] [facility]IC[facility] [address] [place] [phone] Mark Emery MD NO ADDRESS ON FILE Supervision of Other Normal (Primary Dx) Social History Tobacco Use Types Packs/Day Years Used Date Smoking Tobacco: Never Assessed Comments Unknown Sex and Gender Information Value Date Recorded Sex Assigned at Not on file Legal Sex Female 4:27 AM HOTEL FRONT OFFICE MANAGER Gender Identity Not on file Sexual Orientation Not on file documented as of this encounter Plan of Treatment Not on file documented as of this encounter Visit Diagnoses Diagnosis Supervision of other normal - Primary documented in this encounter Care Teams Physician Specialist Relationship Specialty Start Date End Date Shine Fuentes NP PCP - General Family Practice 06/29/10 documented as of this encounter
--- OUTSIDE RECORDS SUMMARY | 2025-05-02 15:41 | XMS_ITS | Encounter Summary ---
Author Organization [facility] Address [address] [place] [address] Care Team Providers Care Scow Hand Name Role Phone Shine Fuentes NP Primary Care Provider Encounter Details Date Type Department Care Team (Latest Contact Info) Description 01/30/2006 Outpatient Historical [facility] UTILITY CLERK [address] [place] [phone] Mark Emery MD NO ADDRESS ON FILE Supervision of Other Normal (Primary Dx) Social History Tobacco Use Types Packs/Day Years Used Date Smoking Tobacco: Never Assessed Comments Unknown Sex and Gender Information Value Date Recorded Sex Assigned at Not on file Legal Sex Female 4:27 AM SENIOR ORACLE DATABASE ADMINISTRATOR Gender Identity Not on file Sexual Orientation Not on file documented as of this encounter Plan of Treatment Not on file documented as of this encounter Visit Diagnoses Diagnosis Supervision of other normal - Primary documented in this encounter Care Teams Scow Hand Relationship Specialty Start Date End Date Shine Fuentes NP PCP - General Family Practice 06/29/10 documented as of this encounter
--- OUTSIDE RECORDS SUMMARY | 2025-05-02 15:42 | XMS_ITS | Encounter Summary ---
Author Organization [facility] Address [address] [place] [address] Care Team Providers Care Recording Studio Setup Worker Name Role Phone Shine Fuentes NP Primary Care Provider Encounter Details Date Type Department Care Team (Latest Contact Info) Description 08/15/2006 Outpatient Historical [facility] NUTRITIONIST PUBLIC HEALTH [address] [place] [phone] Mark Emery MD NO ADDRESS ON FILE General Counseling for Prescription of Oral Contraceptives (Primary Dx); Routine Follow-Up Social History Tobacco Use Types Packs/Day Years Used Date Smoking Tobacco: Never Assessed Comments Unknown Sex and Gender Information Value Date Recorded Sex Assigned at Not on file Legal Sex Female 4:27 AM DETECTOR CAR OPERATOR Gender Identity Not on file Sexual Orientation Not on file documented as of this encounter Plan of Treatment Not on file documented as of this encounter Visit Diagnoses Diagnosis General counseling for prescription of oral contraceptives- Primary Routine follow-up documented in this encounter Care Teams Recording Studio Setup Worker Relationship Specialty Start Date End Date Shine Fuentes NP PCP - General Family Practice 06/29/10 documented as of this encounter
--- OUTSIDE RECORDS SUMMARY | 2025-05-02 15:42 | XMS_ITS | Encounter Summary ---
Author Organization [facility] Address [address] [place] [address] Care Team Providers Care Manager Business Process Name Role Phone Shine Fuentes SKINNER PELTS Primary Care Provider Encounter Details Date Type Department Care Team (Latest Contact Info) Description 04/16/2007 Outpatient Historical [facility]- [place] [address] [address] [place] [phone] José Miguel Moran MD [address] [facility] [address] [place] [phone] Blood in Stool (Primary Dx) Social History Tobacco Use Types Packs/Day Years Used Date Smoking Tobacco: Never Assessed Comments Unknown Sex and Gender Information Value Date Recorded Sex Assigned at Not on file Legal Sex Female 4:27 AM NUCLEAR REACTOR ENGINEER Gender Identity Not on file Sexual Orientation Not on file documented as of this encounter Plan of Treatment Not on file documented as of this encounter Visit Diagnoses Diagnosis Blood in stool- Primary documented in this encounter Care Teams Manager Business Process Relationship Specialty Start Date End Date Shine Fuentes NP PCP - General Family Practice 06/29/10 documented as of this encounter
--- OUTSIDE RECORDS SUMMARY | 2025-05-02 15:42 | XMS_ITS | Encounter Summary ---
Author Organization [facility] Address [address] [place] [address] Care Team Providers Care Mechanical Engineering Coop Name Role Phone Shine Fuentes NP Primary Care Provider Encounter Details Date Type Department Care Team (Late st Contact Info) Description 06/24/2006 Inpatient Historical [facility] IN [facility] Mark Emery MD NO ADDRESS ON FILE Other Curr Cond-Delivered (Primary Dx) Social History Tobacco Use Types Packs/Day Years Used Date Smoking Tobacco: Never Assessed Comments Unknown Sex and Gender Information Value Date Recorded Sex Assigned at Not on file Legal Sex Female 4:27 AM STILL OPERATOR HELPER Gender Identity Not on file Sexual Orientation Not on file documented as of this encounter Plan of Treatment Not on file documented as of this encounter Procedures Procedure Name Priority Date/Time Associated Diagnosis Comments CBC WITHOUT DIFFERENTIAL Routine 06/25/2006 4:15 PM STILL OPERATOR HELPER BLOOD GAS CORD ARTERIAL Routine 06/25/2006 4:10 AM STILL OPERATOR HELPER CBC WITHOUT DIFFERENTIAL Routine 06/24/2006 8:32 PM STILL OPERATOR HELPER documented in this encounter Results * (ABNORMAL) CBC WITHOUT DIFFERENTIAL (06/25/2006 4:15 PM STILL OPERATOR HELPER) WBC 12.0 4.5 - 12.5 K/ul INTERFACE SYSTEM RBC 3.86(L) 4.20 - 5.40 Mil/ul INTERFACE SYSTEM HEMOGLOBIN 11.4(L) 12.0 - 16.0 g/dL INTERFACE SYSTEM HEMATOCRIT 34.1(L) 36.0 - 46.0 % INTERFACE SYSTEM MCV 88.3 84.0 - 103.0 Fl INTERFACE SYSTEM MCH 29.5 27.0 - 34.0 pg INTERFACE SYSTEM MCHC 33.4 30.0 - 35.0 g/dL INTERFACE SYSTEM RDW 12.7 11.0 - 14.5 % INTERFACE SYSTEM PLATELETS 305 140 - 440 K/ul INTERFACE SYSTEM MPV 10.5 8.9 - 12.8 Fl INTERFACE SYSTEM NEUTROPHILS 74.3 42.2 - 75.2 % INTERFACE SYSTEM LYMPHOCYTES 17.6(L) 24.0 - 44.0 % INTERFACE SYSTEM MONOCYTES 7.2 2.0 - 10.0 % INTERFACE SYSTEM EOSINOPHILS 0.7 0.0 - 7.0 % INTERFACE SYSTEM BASOPHILS 0.2 0.0 - 1.0 % INTERFACE SYSTEM NEUTROPHIL ABSOLUTE 8.9(H) 2.0 - 8.0 K/uL INTERFACE SYSTEM LYMPHOCYTE ABSOLUTE 2.1 1.2 - 4.0 K/ul INTERFACE SYSTEM MONOCYTE ABSOLUTE 0.9(H) 0.1 - 0.6 K/ul INTERFACE SYSTEM EOSINOPHIL ABSOLUTE 0.1 0.0 - 0.7 K/ul INTERFACE SYSTEM BASOPHILS ABSOLUTE 0.0 0.0 - 0.2 K/ul INTERFACE SYSTEM 06/25/2006 4:15 PM STILL OPERATOR HELPER Mark Emery MD HEMATOLOGY ORDERABLES Final Result INTERFACE SYSTEM Refer to clinic/hospital department * (ABNORMAL) BLOOD GAS CORD ARTERIAL (06/25/2006 4:10 AM STILL OPERATOR HELPER) SPECIMEN DESCRIPTION Arterial INTERFACE SYSTEM Comment:Sample not collected by [facility] PH CORD ARTERIAL 7.24 7.18 - 7.38 Unit INTERFACE SYSTEM PCO2 CORD ARTERIAL 65(H) 32 - 36 mmHg INTERFACE SYSTEM PO2 CORD ARTERIAL 11 mmHg INTERFACE SYSTEM HCO3 CORD ARTERIAL 28.1(H) 17.0 - 27.0 mmol/l INTERFACE SYSTEM BASE EXCESS CORD ARTERIAL 1 -2 - 3 mmol/l INTERFACE SYSTEM O2 SAT EST CORD ARTERIAL 8 % INTERFACE SYSTEM TCO2 CORD 30 mmol/l INTERFACE SYSTEM 06/25/2006 4:10 AM STILL OPERATOR HELPER Mark Emery MD ABG ORDERABLES Final Result INTERFACE SYSTEM Refer to clinic/hospital department * (ABNORMAL) CBC WITHOUT DIFFERENTIAL (06/24/2006 8:32 PM STILL OPERATOR HELPER) WBC 10.0 4.5 - 12.5 K/ul INTERFACE SYSTEM RBC 3.86(L) 4.20 - 5.40 Mil/ul INTERFACE SYSTEM HEMOGLOBIN 11.2(L) 12.0 - 16.0 g/dL INTERFACE SYSTEM HEMATOCRIT 34.2(L) 36.0 - 46.0 % INTERFACE SYSTEM MCV 88.6 84.0 - 103.0 Fl INTERFACE SYSTEM MCH 29.0 27.0 - 34.0 pg INTERFACE SYSTEM MCHC 32.7 30.0 - 35.0 g/dL INTERFACE SYSTEM RDW 12.9 11.0 - 14.5 % INTERFACE SYSTEM PLATELETS 323 140 - 440 K/ul INTERFACE SYSTEM MPV 10.4 8.9 - 12.8 Fl INTERFACE SYSTEM NEUTROPHILS 70.3 42.2 - 75.2 % INTERFACE SYSTEM LYMPHOCYTES 20.6(L) 24.0 - 44.0 % INTERFACE SYSTEM MONOCYTES 8.0 2.0 - 10.0 % INTERFACE SYSTEM EOSINOPHILS 0.9 0.0 - 7.0 % INTERFACE SYSTEM BASOPHILS 0.2 0.0 - 1.0 % INTERFACE SYSTEM NEUTROPHIL ABSOLUTE 7.0 2.0 - 8.0 K/uL INTERFACE SYSTEM LYMPHOCYTE ABSOLUTE 2.1 1.2 - 4.0 K/ul INTERFACE SYSTEM MONOCYTE ABSOLUTE 0.8(H) 0.1 - 0.6 K/ul INTERFACE SYSTEM EOSINOPHIL ABSOLUTE 0.1 0.0 - 0.7 K/ul INTERFACE SYSTEM BASOPHILS ABSOLUTE 0.0 0.0 - 0.2 K/ul INTERFACE SYSTEM 06/24/2006 8:32 PM STILL OPERATOR HELPER Mark Emery MD HEMATOLOGY ORDERABLES Final Result Performing Organization Address City/State/[facility] [[email or web address]] Co de Phone Number INTERFACE SYSTEM Refer to clinic/hospital department documented in this encounter Visit Diagnoses Diagnosis Other current maternal conditions classifiable elsewhere, with delivery- Primary documented in this encounter Care Teams Mechanical Engineering Coop Relationship Specialty Start Date End Date Shine Fuentes NP PCP - General Family Practice 06/29/10 documented as of this encounter
--- OUTSIDE RECORDS SUMMARY | 2025-05-02 15:42 | XMS_ITS | Encounter Summary ---
Author Organization [facility] Address [address] [facility] [place] [address] Care Team Providers Care Machine Cementer And Folder Name Role Phone Shine Fuentes NP Primary Care Provider Encounter Details Date Type Department Care Team (Latest Contact Info) Description 10/17/2006 Outpatient Historical [facility] [place] TEXTILE ENGINEER [address] [place] [id number] Mark Emery MD NO ADDRESS ON FILE Maternal Mental Disorders, Previous Condition (Primary Dx); Anxiety State, Unspecified Social History Tobacco Use Types Packs/Day Years Used Date Smoking Tobacco: Never Assessed Comments Unknown Sex and Gender Information Value Date Recorded Sex Assigned at Not on file Legal Sex Female 4:27 AM PCB DESIGN ENGINEER Gender Identity Not on file Sexual Orientation Not on file documented as of this encounter Plan of Treatment Not on file documented as of this encounter Visit Diagnoses Diagnosis Mental disorders of mother, - Primary Anxiety state, unspecified documented in this encounter Care Teams Machine Cementer And Folder Relationship Specialty Start Date End Date Shine Fuentes NP PCP - General Family Practice 06/29/10 documented as of this encounter
--- OUTSIDE RECORDS SUMMARY | 2025-05-02 15:42 | XMS_ITS | Encounter Summary ---
Author Organization [facility] Address [address] [place] [address] Care Team Providers Care Recruiter Account Manager Name Role Phone Shine Fuentes RENTAL SALESPERSON Primary Care Provider Encounter Details Date Type Department Care Team (Late st Contact Info) Description 03/09/2007 Emergency [facility] Emergency Department [address] [place] [id number] Herminio Degroot MD [address] [place], [place] [id number] Esophageal Reflux (Primary Dx) Social History Tobacco Use Types Packs/Day Years Used Date Smoking Tobacco: Never Assessed Comments Unknown Sex and Gender Information Value Date Recorded Sex Assigned at Not on file Legal Sex Female 4:27 AM OFFICE MACHINE INSPECTOR Gender Identity Not on file Sexual Orientation Not on file documented as of this encounter Plan of Treatment Not on file documented as of this encounter Procedures Procedure Name Priority Date/Time Associated Diagnosis Comments POC ELECTROLYTES/BMP Routine 03/09/2007 1:40 PM CDT documented in this encounter Results * (ABNORMAL) POC ISTAT 6 (03/09/2007 1:40 PM CDT) SODIUM POC 141 136 - 145 mEq/L INTERFACE SYSTEM POTASSIUM POC 4.0 3.5 - 5.0 mEq/L INTERFACE SYSTEM CHLORIDE POC 107 95 - 110 mEq/L INTERFACE SYSTEM GLUCOSE POC 69(L) 70 - 110 mg/dL INTERFACE SYSTEM BLOOD UREA NITROGEN POC 8 7 - 17 mg/dL INTERFACE SYSTEM HEMATOCRIT POC 40.0 36.0 - 46.0 % INTERFACE SYSTEM HEMOGLOBIN POC 14.0 12.0 - 16.0 g/dL INTERFACE SYSTEM 03/09/2007 1:40 PM CDT Physician Sj Ed POINT OF CARE TESTING Edited INTERFACE SYSTEM Refer to clinic/hospital department documented in this encounter Visit Diagnoses Diagnosis Esophageal reflux- Primary documented in this encounter Care Teams Recruiter Account Manager Relationship Specialty Start Date End Date Shine Fuentes NP PCP - General Family Practice 06/29/10 documented as of this encounter
--- OUTSIDE RECORDS SUMMARY | 2025-05-02 15:42 | XMS_ITS | Encounter Summary ---
Author Organization [facility] Address [address] [place] [address] Care Team Providers Care Legal Department Manager Name Role Phone Shine Fuentes NP Primary Care Provider [phone] Encounter Details Date Type Department Care Team (Latest Contact Info) Description 10/10/2006 Outpatient Historical [facility] [place] RETAIL SERVICES PROFESSIONAL [address] [place] [phone] Mark Eemry MD NO ADDRESS ON FILE Surveillance of Other Previously Prescribed Contraceptive Method (Primary Dx); Insertion of IUD Social History Tobacco Use Types Packs/Day Years Used Date Smoking Tobacco: Never Assessed Comments Unknown Sex and Gender Information Value Date Recorded Sex Assigned at Not on file Legal Sex Female 4:27 AM RADIATOR FITTER Gender Identity Not on file Sexual Orientation Not on file documented as of this encounter Plan of Treatment Not on file documented as of this encounter Visit Diagnoses Diagnosis Surveillance of other previously prescribed contraceptive method- Primary Insertion of IUD Insertion of intrauterine contraceptive device documented in this encounter Care Teams Legal Department Manager Relationship Specialty Start Date End Date Shine Fuentes NP PCP - General Family Practice 06/29/10 documented as of this encounter
--- OUTSIDE RECORDS SUMMARY | 2025-05-02 15:42 | XMS_ITS | Encounter Summary ---
Author Organization [facility] Address [address] [facility] [place] [address] Care Team Providers Care Tobacco Scrap Sifter Name Role Phone Shine Fuentes NP Primary Care Provider [phone] Encounter Details Date Type Department Care Team (Latest Contact Info) Description 06/22/[address] 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
--- OUTSIDE RECORDS SUMMARY | 2025-05-02 15:42 | XMS_ITS | Encounter Summary ---
Author Organization [facility] Address [address] [place] [address] Care Team Providers Care Shirt Finisher Name Role Phone Shine Fuentes NP Primary Care Provider [phone] Encounter Details Date Type Department Care Team (Latest Contact Info) Description 08/15/2006 Outpatient Historical [facility] Mark Emery MD NO ADDRESS ON FILE Routine Gynecological Examination (Primary Dx) Social History Tobacco Use Types Packs/Day Years Used Date Smoking Tobacco: Never Assessed Comments Unknown Sex and Gender Information Value Date Recorded Sex Assigned at Not on file 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
--- OUTSIDE RECORDS SUMMARY | 2025-05-02 15:42 | XMS_ITS | Clinical Summary ---
Author Organization [facility] Address [address] [facility] Attn: Epic Prelude ADT COY OLIVEROS [id number] Care Team Providers Care Buyer Renter Name Role Phone Unavailable Primary Care Provider Unavailabl e Allergies Active Allergy Reactions Criticality Noted Date Comments Codeine Rash Low 06/29/2010 Escitalopram Other (See Comments) 03/20/2025 Severe depression Latex Rash Low 02/25/2025 Penicillins Rash Low 06/29/2010 Sulfa (Sulfonamide Antibiotics) Anaphylaxis,Rash High 06/29/2010 Zonisamide Hallucination Low 03/20/2025 Medications baclofen (LIORESAL) 20 mg tablet Take 20 mg by mouth 2 times daily. Active adalimumab (HUMIRA) 40 mg/0.8 mL Syringe Kit Inject 40 mg by subcutaneous injection every 2 weeks. Active azelastine HCl (AZELASTINE BOTH NOSTRIL) Administer 205.5 mcg in each nostril 2 times daily. Active EPINEPHrine (EPIPEN) 0.3 mg/0.3 mL Auto-Injector Inject 0.3 mg by intramuscular injection 1 time daily as needed for Anaphylaxis. Active hydroxychloroq uine (PLAQUENIL,SOV MODE) 200 mg tablet Take 200 mg by mouth 2 times daily. Active leflunomide (ARAVA) 20 mg Tablet Take 20 mg by mouth daily. Active levocetirizine (XYZAL) 5 mg tablet Take 5 mg by mouth late in the day. Active ondansetron (ZOFRAN ODT) 4 mg Tablet, Rapid Dissolve Take 4 mg by mouth every 8 hours as needed for Nausea/Emesis. Dissolve tablet on top of tongue, then swallow with saliva. Active pantoprazole (PROTONIX) 40 mg Tablet, Delayed Release (E.C.) Take 40 mg by mouth daily. Active predniSONE (DELTASONE) 20 mg tablet Take 10 mg by mouth daily. Active pregabalin (LYRICA) 200 mg Capsule Take 200 mg by mouth every 12 hours. Active rimegepant 75 mg Tablet, Rapid Dissolve Take 75 mg by mouth. EVERY OTHER DAY Active traMADol (ULTRAM) 50 mg tablet Take 50 mg by mouth every 6 hours as needed for Pain. Active triamterene-hy droCHLOROthiaz joseline (DYAZIDE) 37.5-25 mg capsule Take 1 Capsule by mouth daily in the morning. Active potassium gluconate 600 mg (99 mg) Tablet Take by mouth daily. Active calcium 26/magnesium 15/zinc (CALCIUM-MAGNE SIUM-ZINC COMPLEX ORAL) Take by mouth daily. Active B-complex + vitamin C (SUPER B-C) Tablet Take 1 Tablet by mouth daily. Active albuterol sulfate HFA 90 mcg/actuation aerosol inhaler Take 2 Puffs by inhalation every 6 hours as needed. 4 Active NIFEdipine (PROCARDIA XL) 30 mg Extended Release 24 hour tablet Take 30 mg by mouth daily. Active naloxone (NARCAN) 4 mg/spray [place], Non-Aerosol EMERGENCY USE ONLY: Administer 1 spray (4 mg) in one nostril one time. May repeat in alternating nostrils every 2-3 min until responsive or EMS arrives. 2 Each 3 5 Active Active Problems Patient Care Coordination No te Formatting of this note migh t be different from the original. 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 Other acne 12/30/2010 Late care 12/30/2010 GERD (gastroesophageal reflux disease) 1 Overview (12/03/2020): Hx of esophagitis with workup Dr Moran; ok use of prilosec and zantac Supervision of other normal 12/30/2010 Encounters Date Type Department Care Team Description 04/22/2025 External Device Data STL ABSTRACTION Provider, Abstract 04/22/2025 External Device Data ST[facility] ABSTRACTION Provider, Abstract 04/08/2025 External Device Data ST[facility] ABSTRACTION Provider, Abstract 04/08/2025 External Device Data ST[facility] ABSTRACTION Provider, Abstract 04/08/2025 External Device Data STL ABSTRACTION Provider, Abstract 04/02/2025 10:20 AM CDT Office Visit [facility] [address] [place] [phone] Monika Meneses PA Meningioma ([facility]/HCC) (Primary Dx); S/P craniotomy 03/25/2025 External Device Data STL ABSTRACTION Provider, Abstract 03/25/2025 External Device Data STL ABSTRACTION Provider, Abstract 03/21/2025 Results Follow-Up [facility] [address] [place] [phone] Monika Meneses PA CBC WITH DIFFERENTIAL, BASIC METABOLIC PANEL, SEDIMENTATION RATE, C-REACTIVE PROTEIN 03/20/2025 1:40 PM CDT Office Visit [facility] [address] [place] [phone] Monika Meneses PA Meningioma ([facility]/HCC) (Primary Dx); S/P craniotomy 03/12/2025 External Device Data STL ABSTRACTION Provider, Abstract 03/11/2025 External Device Data STL ABSTRACTION Provider, Abstract 03/11/2025 External Device Data STL ABSTRACTION Provider, Abstract 03/04/2025 7:20 AM CDT - 03/04/2025 11:53 AM CDT Surgery [facility] Operating Room [address] [place] [phone] Mikal Castillo MD CRANIOTOMY RETROSIGMOID TUMOR RESECTION 03/04/2025 7:15 AM CDT Anesthesia Event [facility] Operating Room [address] [place] [address] Beata Sahh MD Koch, Brooke (Student), RN 03/04/2025 5:02 AM CDT - 03/06/2025 11:50 AM CDT Hospital Encounter [facility] 4E Neuro Intensive Care [address] [place] [phone] Mikal Castillo MD Cerebellopontine angle meningioma (CMS/HCC) Discharge Disposition: Home or Self Care 03/04/2025 Travel 02/19/2025 External Device Data STL ABSTRACTION Provider, Abstract 02/18/2025 External Device Data STL ABSTRACTION Provider, Abstract 02/18/2025 Telephone [facility] [address] [place] [phone] Mikal Castillo MD Surgery from Last 3 Months Immunizations Immunization Administration Dates Next Due (ADACEL/BOOSTRIX)(10 YR UP) TDAP VACCINE, 0.5ML, IM 05/29/2011 (M-M-R II/PRIORIX)(12 MO UP) MEASLES, MUMPS AND RUBELLA VIRUS VACCINE, 0.5 ML IM/SUBCUT 03/22/1995,02/28/1990 (TDVAX)(7 YRS UP) TETANUS AN D DIPHTHERIA TOXOIDS, ADSORBED (2 LF OF TETANUS TOXOID AND 2 LF OF DIPHTHERIA TOXOID), 0.5ML (PF), IM 03/07/2001 Diptheria, Tetanus Toxoids, And Whole Cell Pertussis Vaccine (DTP), for intramuscular use 03/21/1991,08/25/1986,03/11/1986,11/05 Dt Dtp Dtap Vaccine 03/21/1991 Hepatitis A Vaccine 10/21/1998,06/01/1998,1997 Hepatitis B Vaccine 04/08/1998,09/17/1997,1997 Hepatitis B Vaccine, Adolesc ent/High Risk Infant Dosage 04/08/1998 Hepatitis B Vaccine, Unspeci fied Formulation 09/17/1997,08/13/1997 IPV/OPV 03/21/1991 Influenza Vaccine Split 3+ Yrs [...] Cigarettes Q uit: 09/07/2010 Smokeless Tobacco: Never Tobacco Cessation:Counseling Given: Not Answered Alcohol Use Standard Drinks/Week Comments No 0 [...] on file 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 Gender Identity Not on file Sexual Orientation Not on file Last Filed Vital Signs Vital Sign Reading Time Taken Comments Blood Pressure 132/84 04/02/2025 10:21 AM CDT Pulse 76 04/02/2025 10:21 AM CDT Temperature 37.1 C (98.8 F) 03/20/2025 1:23 PM CDT Respiratory Rate 15 03/06/2025 10:00 AM CDT Oxygen Saturation 96% 03/06/2025 7:00 AM CDT Inhaled Oxygen Concentration - - Weight 99.3 kg (219 lb) 04/02/2025 10:21 AM CDT Height 160 cm (5' 3 ) 04/02/2025 10:21 AM CDT Body Mass Index 38.79 04/02/2025 10:21 AM CDT Plan of Treatment Upcoming Encounters Date Type Department Care Team (Late st Contact Info) Description 05/29/2025 11:30 AM CDT Appointment [facility] [address] [place] [address] Monika Meneses, CORY [address] [place] [address] 05/29/2025 2:40 PM CDT Office Visit [facility] [address] [place] [address] Monika Meneses PA [address] [place] [address] Health Maintenance Due Date Last Done Comments Pre-Diabetes and Diabetes Screening 1985 HPV/Cotest (21-29) 2006 HPV VACCINES (1 - 3-dose SCD M series) 2012 CERVICAL CANCER SCREENING 2015 HPV/Cotest (30-65) 2015 PAP SMEAR 2015 DTAP/TDAP/TD VACCINES (6 - T d or Tdap) 05/29/2021 05/29/2011, 03/07/2001, 03/21/1991, Additional history exists INFLUENZA VACCINE (#1) 2025 05/06/2011 HEPATITIS B VACCINES Completed 04/08/1998, 04/08/1998, 09/17/1997, Additional history exists Medical Devices Implanted Type Area Mapping Technician Device Identifier Shelf Expiration Date Model / Serial / Lot Collagen Duramatrix 3x3in [id number] - [id number] Implanted:Qty: 1 on 03/04/2025 by Mikal Castillo MD at [facility] Collagen Right: Brain [employer] [id number] 11/05/2027 [facility]33 / / [id number] Hemostatic Surgifoam Sz100 1973 - [id number] Implanted:Qty: 1 on 03/04/2025 by Mikal Castillo MD at [facility] Hemostatic Right: Brain J&J- [employer] [id number] 10/30/20281973 / / [id number] Hemostatic Surgiflo 8ml W/ Thrombin 2994 - [id number] Implanted:Qty: 1 on 03/04/2025 by Mikal Castillo MD at [facility] Hemostatic Right: Brain J[employer]J- [employer] [id number] 05/06/2026 2994 / / [id number] Agent Hemostat Surgicel 2x3in 1952s - [id number] Implanted:Qty: 1 on 03/04/2025 by Mikal Castillo MD at [facility] Hemostatic Right: Brain J&J- [employer] [id number] 10/04/2029 1953S / / [id number] Agent Hemostat Surgicel 3x4in 1942s - [id number] Implanted:Qty: 1 on 03/04/2025 by Mikal Castillo MD at [facility] Hemostatic Right: Brain J[employer]J- [employer] [id number] 06/06/2029 1943S / / [id number] Plate Matrxneuro Straight 503.062 - [id number] Implanted:Qty: 1 on 03/04/2025 by Mikal Castillo MD at [facility] Plate Right: Cranial J&J- DEPUY SYNTHES 04.503.0 62 / / Plate Matrxneuro Straight 503.062 - [id number] Implanted:Qty: 1 on 03/04/2025 by Mikal Castillo MD at [facility] Plate Right: Cranial J&J- DEPUY SYNTHES .503.0 62 / / Plate Matrxneuro Straight 503.062 - [id number] Implanted:Qty: 1 on 03/04/2025 by Mikal Castillo MD at [facility] Plate Right: Cranial J&J- DEPUY SYNTHES 04.503.0 62 / / Screw Matrixneuro Sd 503.104.01 - [id number] Implanted:Qty: 1 on 03/04/2025 by Mikal Castillo MD at [facility] Screw Right: Cranial J&J- DEPUY SYNTHES 04.503.1 04.01 / / Screw Matrixneuro Sd .104.01 - [id number] Implanted:Qty: 1 on 03/04/2025 by Mikal Castillo MD at [facility] Screw Right: Cranial J&J- DEPUY SYNTHES 04.503.1 04.01 / / Screw Matrixneuro Sd .104. - [id number] Implanted:Qty: 1 on 03/04/2025 by Mikal Castillo MD at [facility] Screw Right: Cranial J&J- DEPUY SYNTHES 04.503.1 04.01 / / Screw Matrixneuro Sd .104. - [id number] Implanted:Qty: 1 on 03/04/2025 by Mikal Castillo MD at [facility] Screw Right: Cranial J&J- DEPUY SYNTHES 04.503.1 04.01 / / Screw Matrixneuro Sd .104. - [id number] Implanted:Qty: 1 on 03/04/2025 by Mikal Castillo MD at [facility] Screw Right: Cranial J&J- DEPUY SYNTHES 04.503.1 04.01 / / Screw Matrixneuro Sd .104. - [id number] Implanted:Qty: 1 on 03/04/2025 by Mikal Castillo MD at [facility] Screw Right: Cranial J&J- DEPUY SYNTHES 04.503.1 04.01 / / Procedures Procedure Name Priority Date/Time Associated Diagnosis Comments C-REACTIVE PROTEIN Routine 03/20/2025 2: 16 PM CDT Meningioma (CMS/HCC) S/P craniotomy SEDIMENTATION RATE Routine 03/20/2025 2: 16 PM CDT Meningioma (CMS/HCC) S/P craniotomy BASIC METABOLIC PANEL Routine 03/20/2025 2:16 PM CDT Meningioma (CMS/HCC) S/P craniotomy CBC WITH DIFFERENTIAL Routine 03/20/2025 2:16 PM CDT Meningioma (CMS/HCC) S/P craniotomy TELEMETRY REPORT 03/07/2025 2:45 AM CDT POC GLUCOSE Routine 03/05/2025 5:45 AM CDT BASIC METABOLIC PANEL Routine 03/05/2025 5:45 AM CDT CBC WITH DIFFERENTIAL Routine 03/05/2025 5:45 AM CDT MRI IAC W BRAIN MR W WO CONTRAST Routine 03/05/2025 1:18 AM CDT VT ANES INSERT CATH, ART, PERCUT, SHORTTERM Routine 03/04/2025 5:11 PM CDT PT EVAL AND TREAT Routine 03/04/2025 3:2 1 PM CDT OT EVAL AND TREAT Routine 03/04/2025 3:2 1 PM CDT POC GLUCOSE Routine 03/04/2025 3:06 PM CDT POC GLUCOSE Routine 03/04/2025 1:34 PM CDT PATHOLOGY Pathology 03/04/2025 11:58 AM CDT Meningioma (CMS/HCC) VT ANES INSERT ENDOTRACHEAL AIRWAY Routine 03/04/2025 7:45 AM CDT INTRAOP NEUROPHYSIO MONITORING Routine 03/04/2025 7:39 AM CDT VT STRTCTC CPTR ASSTD PX CRANIAL INTRADURAL 03/04/2025 7:20 AM CDT Meningioma (CMS/HCC) VT CRNEC ANDERSON INFRATTL/POSTFOSSA CRBLOPNT ANGLE ANDERSON 03/04/2025 7:20 AM CDT Meningioma (CMS/HCC) XR CHEST PA AND LATERAL 2 VW Stat 03/04/2025 6:19 AM CDT POC , URINE Routine 03/04/2025 6:11 AM CDT VERIFICATION BLOOD GROUP Stat 03/04/2025 6:06 AM CDT TYPE AND SCREEN Stat 03/04/2025 6:01 AM CDT PTT Routine 03/04/2025 6:01 AM CDT EKG 12-LEAD Routine 03/04/2025 5:52 AM CDT PREPARE RED BLOOD CELLS Routine 03/04/2025 5:13 AM CDT PTT Routine 02/20/2025 4:41 PM CDT Preop testing COMPREHENSIVE METABOLIC PANEL Routine 02/20/2025 4:41 PM CDT Preop testing PROTIME-INR Routine 02/20/2025 4:41 PM CDT Preop testing CBC WITH DIFFERENTIAL Routine 02/20/2025 4:41 PM CDT Preop testing from Last 3 Months Results * (ABNORMAL) CBC WITH DIFFERENTIAL (03/20/2025 2:16 PM CDT) Only the most recent of3 resultswithin the time period is included. WBC 7.8 3.8 - 10.8 Thousand/ uL [facility] RBC 4.43 3.80 - 5.10 Million/u L [facility] HEMOGLOBIN 12.3 11.7 - 15.5 g/dL [facility] HEMATOCRIT 38.8 35.0 - 45.0 % [facility] MCV 87.6 80.0 - 100.0 fL [facility] MCH 27.8 27.0 - 33.0 pg [facility] MCHC 31.7(L) 32.0 - 36.0 g/dL [facility] Comment: For adults, a slight decrease in the calculated MCHC value (in the range of 30 to 32 g/dL) is most likely not clinically significant; however, it should be interpreted with caution in correlation with other red cell parameters and the patient's clinical condition. RDW 15.8(H) 11.0 - 15.0 % [facility] PLATELETS 299 140 - 400 Thousand/ uL [facility] MPV 10.6 7.5 - 12.5 fL [facility] NEUTROPHIL ABSOLUTE 6,162 1,500 - 7,800 cells/uL [facility] BANDS ABSOLUTE 468 0 - 750 cells/uL [facility] METAMYELOCYTE ABSOLUTE 156(H) 0 cells/uL [facility] LYMPHOCYTE ABSOLUTE 702(L) 850 - 3,900 cells/uL [facility] MONOCYTE ABSOLUTE 312 200 - 950 cells/uL [facility] EOSINOPHIL ABSOLUTE 0(L) 15 - 500 cells/uL [facility] BASOPHILS ABSOLUTE 0 0 - 200 cells/uL [facility] NEUTROPHIL 79 % [facility] BANDS 6 % [facility] METAMYELOCYTE 2(H) % [facility] LYMPHOCYTES 9 % [facility] MONOCYTE 4 % [facility] EOSINOPHILS 0 % [facility] BASOPHILS 0 % [facility] COMMENT HEMATOLOGY [facility] Comment: Red cell morphology appears unremarkable The smear has been manually reviewed and the manual differential has been reported. Slide review performed at: [facility] [place] [address] [place] [address] Check Embosser: Conrado Pena [id number] FASTING:NO FASTING: NO Test Performed at: [facility] [address] [place] [address] Ian Anne Blood 03/20/2025 2:16 PM CDT 03/20/2025 2:17 PM CDT us Monika RAY HEMATOLOGY ORDERABLE S Final Result [facility] [phone] [facility] [address] [place] [address] * SEDIMENTATION RATE (03/20/2025 2:16 PM CDT) [facility] ESR (SEDIMENTATION RATE) 8 < OR = 20 mm/h [facility] Comment: Test Performed at: [facility] [address] [place] [address] Ian Anne Blood 03/20/2025 2:16 PM CDT 03/20/2025 2:17 PM CDT Monika RAY HEMATOLOGY ORDERABLE S Final Result Performing Organization Address City[facility] Co de Phone Number [facility] [phone] [facility] [address] [place] [address] * C-REACTIVE PROTEIN (03/20/2025 2:16 PM CDT) [facility] CRP <3.0 <8.0 mg/L [facility] Comment: FASTING:NO FASTING: NO Test [facility]formed [facility] [address] Gisel Carias MD Blood 03/20/2025 2:16 PM CDT 03/20/2025 2:17 PM CDT Monika RAY CHEMISTRY ORDERABLES Final Result Performing Organization Address City/[facility]/ZIP Co de Phone Number [facility] [phone] [facility] [address] [place] [phone] * (ABNORMAL) BASIC METABOLIC PANEL (03/20/2025 2:16 PM CDT) Only the most recent of2 resultswithin the time period is included. [facility] GLUCOSE 114 65 - 139 mg/dL [facility] Comment: Non-fasting reference interval BUN 18 7 - 25 mg/dL [facility] CREATININE 0.75 0.50 - 0.97 mg/dL [facility] GFR 104 > OR = 60 mL/min/1.7 3m2 [facility] BUN/CREAT RATIO SEE NOTE: 6 - 22 (calc) [facility] Comment: Not Reported: BUN and Creatinine are within reference range. SODIUM 136 135 - 146 mmol/L [facility] POTASSIUM 4.2 3.5 - 5.3 mmol/L [facility] CHLORIDE 96(L) 98 - 110 mmol/L [facility] CO2 33(H) 20 - 32 mmol/L [facility] CALCIUM 9.2 8.6 - 10.2 mg/dL [facility] Comment: FASTING:NO FASTING: NO Test Performed at: [facility] [address] [place] [address] Ian Anne Blood 03/20/2025 2:16 PM CDT 03/20/2025 2:17 PM CDT Monika RAY CHEMISTRY ORDERABLES Final Result [facility] [phone] [facility] [address] [place] [address] * TELEMETRY REPORT (03/07/2025 2:45 AM CDT) Provider Scanning ECG ORDERABLES Final Result * (ABNORMAL) POC GLUCOSE (03/05/2025 5:45 AM CDT) Only the most recent of3 resultswithin the time period is included. GLUCOSE POC 144(H) 74 - 99 mg/dL 03/05/2025 5:45 AM CDT [facility] SPECIMEN SOURCE, GLUCOSE POC Venous 03/05/2025 5:45 AM CDT [facility] Blood, whole 03/05/2025 5:45 AM CDT 03/05/2025 5:52 AM CDT us Mikal Castillo MD POINT OF CARE TESTING Final Result [facility] ELENA # [id number] [address] [facility] [place] [address] * MRI IAC WWO & MRI BRAIN WWO CONTRAST (03/05/2025 1:18 AM CDT) Anatomical Region Laterality Modality Magnetic Resonan ce 03/05/2025 1:18 AM CDT Impressions 03/05/2025 9:19 AM CDT IMPRESSION: Status post right suboccipital craniotomy for resection of right CP angle presumably meningioma. Expected postoperative changes, including trace linear hemorrhage along the surface of the right cerebellum. No definite residual neoplasm identified. Narrative 03/05/2025 9:19 AM CDT Exam: MRI IAC WWO & MRI BRAIN WWO CONTRAST Date/Time of Exam: 03/05/2025 1:18 AM Reason For Exam: s/p crani for cp angle tumor. Diagnosis: Preop testing; Meningioma (CMS/HCC). Technique: MRI of the IACs without and with contrast. MRI of the brain without and with contrast. Contrast: GADOBENATE DIMEGLUMINE 529 MG/ML(0.1 MMOL/0.2 ML) INTRAVENOUS SOLUTION Given:15 mL Findings: Comparison 11/21/2024. Status post right suboccipital craniotomy for resection of presumed meningioma along the right cerebellum pontine angle and posterior margin of the porus acusticus. Mild linear hemorrhage along the surface of the cerebellum, likely postoperative. No definite residual enhancing lesion. Mild T2 hyperintensity along the right cerebellum/surgical bed. Mild effacement of the right ambient cistern. Expected asymmetric prominence of the right lateral cerebellar CSF space. No acute infarction. No hydrocephalus. The basal cisterns are patent. No suspicious osseous abnormality. The paranasal sinuses and mastoids are clear. The orbits are intact. Procedure Note Jono Cash DO - 03/05/2025 Exam: MRI IAC WWO & MRI BRAIN WWO CONTRAST Date/Time of Exam: 03/05/2025 1:18 AM Reason For Exam: s/p crani for cp angle tumor. Diagnosis: Preop testing; Meningioma (CMS/HCC). Technique: MRI of the IACs without and with contrast. MRI of the brain without and with contrast. Contrast: GADOBENATE DIMEGLUMINE 529 MG/ML(0.1 MMOL/0.2 ML) INTRAVENOUS SOLUTION Given:15 mL Findings: Comparison 11/21/2024. Status post right suboccipital craniotomy for resection of presumed meningioma along the right cerebellum pontine angle and posterior margin of the porus acusticus. Mild linear hemorrhage along the surface of the cerebellum, likely postoperative. No definite residual enhancing lesion. Mild T2 hyperintensity along the right cerebellum/surgical bed. Mild effacement of the right ambient cistern. Expected asymmetric prominence of the right lateral cerebellar CSF space. No acute infarction. No hydrocephalus. The basal cisterns are patent. No suspicious osseous abnormality. The paranasal sinuses and mastoids are clear. The orbits are intact. IMPRESSION: Status post right suboccipital craniotomy for resection of right CP angle presumably meningioma. Expected postoperative changes, including trace linear hemorrhage along the surface of the right cerebellum. No definite residual neoplasm identified. us Mikal Castillo MD MR ORDERABLES Final Result * VT ANES INSERT CATH, ART, PERCUT, SHORTTERM (03/04/2025 5:11 PM CDT) Narrative Beata Shah MD - 03/04/2025 5:11 PM CDT Beata Shah MD 03/04/2025 5:12 PM Arterial Line Insertion Patient location during procedure: OR Staffing Performed: Student NA/AA Authorized by: Beata Shah MD Performed by: Beata Shah MD Patient was prepped and draped in usual sterile fashion Indications: hemodynamic monitoring Hand hygiene performed prior to procedure Sterile Barriers: gloves, mask and cap Preparation: skin prepped with ChloraPrep Skin prep agent dried: skin prep agent completely dried prior to procedure Patient position: flat Location: right radial modified Seldinger technique used Catheter type: radial kit Catheter size: 20 G Catheter Length (in.): 4.5 [place] Identification: palpation technique Number of attempts: 1 Successful placement: yes Assessment: blood return through port Post-procedure: line secured and dressing applied Comments: Procedure performed by GHAZAL Glass after induction of anesthesia us Beata Shah MD PROCEDURE/MINOR SURGICAL ORD ERABLES Final Result * PATHOLOGY (03/04/2025 11:58 AM CDT) CASE REPORT Surgical Pathology Report Case: [id number] Authorizing Provider: Mikal Castillo, Collected: 03/04/2025 11:58 AM Ordering Location: [facility] Received: 03/04/2025 01:39 PM Operating Room Pathologist: Pepe Dahl MD Specimen: Brain, right cerebellopontine angle 12:21 PM CDT [facility] FINAL DIAGNOSIS A. Brain, right cerebellopontine angle, excision - meningioma, [facility]AMP[facility] [employer] WHO Grade 1. REV:CLB Pepe Dahl MD [id number] 12:21 PM CDT [facility] at 1221 CDT GROSS DESCRIPTION A. Received in a container of formalin labeled [place] -brain, right CP angle tumor is a 1.7 x 1.7 x 1.3 cm sharma-pink, lobulated mass with white-sharma, heterogeneous cut surfaces with central hemorrhage. The specimen is serially sectioned and submitted entirely in A1-A2. Grossed by: Madina Mac MS, CORY ([facility]) 12:21 PM CDT [facility] OPERATIVE PROCEDURE 1: CRANIOTOMY RETROSIGMOID TUMOR RESECTION 2: CRANIAL INTRADURAL STEREOTACTIC COMPUTER ASSISTED NAVIGATION 12:21 PM CDT [facility] CLINICAL INFORMATION D32.9-Meningioma (CMS/HCC) 12:21 PM CDT [facility] COMMENT The [employer] voice-activated dictation system may have been used in the creation of this report. Inherent to this system is the possibility of errors in syntax, grammar, punctuation, or other areas that could impact interpretation. If there are interpretive questions about the report, please contact the performing pathologist. Unless gross only is specified in the diagnosis, the microscopic examination substantiates the above cited diagnosis. The performance characteristics of all immunohistochemical stains cited in this report (if any) were determined by the [facility] of [facility] in compliance with CLIA'88 regulations. Some of these tests rely on the use of analyte specific reagents and are subject to specific labeling requirements by the FDA. All controls show appropriate reactivity. This testing was developed by the [facility]. It has not been cleared or approved by the FDA. The FDA has determined that such clearance or approval is not necessary. 12:21 PM CDT [facility] Tissue ENTIRE BRAIN / Unknown Collection / Unknown 03/04/2025 11:58 AM CDT 03/04/2025 1:39 PM CDT us Mikal Castillo MD PATHOLOGY/CYTOLOGY ORD ERABLES Final Result [facility] # [id number] [address] [place] [address] * VT ANES INSERT ENDOTRACHEAL AIRWAY (03/04/2025 7:45 AM CDT) Narrative Andie Morales CRNA - 03/04/2025 7:45 AM CDT Andie Morales CRNA 03/04/2025 8:36 AM Airway Date/Time: 03/04/2025 7:45 AM Location: OR Plan: routine intubation Patient Identity Confirmed by: Verbally with patient and armband Airway: not difficult Staffing Performed: Student NA/AA Authorized by: Beata Shah MD Performed by: Andie Morales CRNA Indications and Patient Condition: Indications for Airway Management: Anesthesia Sedation Level: general anesthesia Preoxygenated: yes Patient Position: Sniffing Mask Difficulty Assessment: 1 - vent by mask Plan to extubate at end of case: Yes Final Airway Details: Final Airway Type: Endotracheal airway ETT Cuffed: Yes Technique Used for Successful ETT Placement: Direct laryngoscopy Devices/Methods Used in Placement: Intubating stylet Blade Type: curved blade Blade Size: 3 Insertion Site: Oral ETT Size (mm): 7.0 Measured from: Lips ETT to Lips (cm): 22 Tube secured with: Tape Placement Verified by: auscultation, end tidal CO2 and chest rise Cormack-Lehane Classification: Grade I - full view of glottis Number of Attempts at Approach: 1 Additional Procedure Information: atraumatic and dentition unchanged Beata Shah MD PROCEDURE/MINOR SURGICAL ORD ERABLES Final Result * XR CHEST PA AND LATERAL 2 VW (03/04/2025 6:19 AM CDT) Anatomical Region Laterality Modality Chest Computed Radiogr aphy 03/04/2025 6:08 AM CDT Impressions 03/04/2025 1:08 PM CDT IMPRESSION: Please see below. Exam: XR CHEST PA AND LATERAL 2 VW Date/Time of Exam: 03/04/2025 6:19 AM REASON FOR EXAM: Other - Please see comments, Comment: pre op. DIAGNOSIS: Preop testing. Findings: The lungs are clear. There is no pneumothorax or pleural effusion. The cardiomediastinal silhouette is unremarkable. The osseous thorax is intact. IMPRESSION: No acute pulmonary process. Narrative Procedure Note Richard Lepe MD - 03/04/2025 IMPRESSION: Please see below. Exam: XR CHEST PA AND LATERAL 2 VW Date/Time of Exam: 03/04/2025 6:19 AM REASON FOR EXAM: Other - Please see comments, Comment: pre op. DIAGNOSIS: Preop testing. Findings: The lungs are clear. There is no pneumothorax or pleural effusion. The cardiomediastinal silhouette is unremarkable. The osseous thorax is intact. IMPRESSION: No acute pulmonary process. us Mikal Castillo MD DIAGNOSTIC IMAGING ORD ERABLES Final Result * POC , URINE (03/04/2025 6:11 AM CDT) HCG QUAL URINE Negative Negative 03/04/2025 6:11 AM CDT [facility] [employer] [facility] Urine 03/04/2025 6:11 AM CDT 03/04/2025 6:01 AM CDT Narrative [facility] [employer] [facility] - 03/04/2025 6:11 AM CDT Positive : Result is greater than or equal to 25 mIU/mL Negative: Result is less than 25 mIU/mL Invalid: Result is borderline or indeterminate,send to lab for serum test methodology. Mikal Castillo MD POINT OF CARE TESTING Final Result Performing Organization Address [facility] Co de Phone Number [facility] CLIA # [id number] [address] [place] [address] * VERIFICATION BLOOD GROUP (03/04/2025 6:06 AM CDT) ABO GROUP A 03/04/2025 7:00 AM CDT [facility] [employer] [facility] RH (D) TYPE Positive 03/04/2025 7:00 AM CDT [facility] Blood Venipuncture / Unknown 03/04/2025 6:06 AM CDT 03/04/2025 6:23 AM CDT Mikal Castillo MD BLOOD BANK ORDERABLES Final Result Performing Organization Address [facility] de Phone Number [id number] [address] [place] [address], * (ABNORMAL) PTT (03/04/2025 6:01 AM CDT) Only the most recent of2 resultswithin the time period is included. PTT 24.2(L) 24.8 - 37.2 seconds 03/04/2025 6:33 AM CDT [facility] [employer] [facility] Blood Venipuncture / Unknown 03/04/2025 6:01 AM CDT 03/04/2025 6:13 AM CDT Narrative [facility] [employer] [facility] - 03/04/2025 6:33 AM CDT Therapeutic Range: Hi-level PE/DVT heparin protocol 80.1 - 95.0 sec Lo-level PE/DVT heparin protocol 70.1 - 85.0 sec Cardiac Heparin Protocol 70.1 - 100.0 sec us Mikal Castillo MD HEMATOLOGY ORDERABLES Final Result Performing Organization Address [facility] Co de Phone Number [facility] CLIA # [id number] [address] [address] * TYPE AND SCREEN (03/04/2025 6:01 AM CDT) ABO GROUP A 03/04/2025 7:44 AM CDT [facility] RH (D) TYPE Positive 03/04/2025 7:44 AM CDT [facility] ANTIBODY SCREEN Negative 03/04/2025 7:44 AM CDT [facility] Blood Venipuncture / Unknown 03/04/2025 6:01 AM CDT 03/04/2025 6:09 AM CDT Mikal Castillo MD BLOOD BANK ORDERABLES Edited Result - Final Performing Organization Address [facility] Co de Phone Number [facility] CLIA#[id number] [address] [place] [address], * EKG 12-LEAD (03/04/2025 5:52 AM CDT) 03/04/2025 5:52 AM CDT Narrative INTERFACE SYSTEM - 03/04/2025 5:16 PM CDT [address] [address] Test Date: 2025-03-04 Pat Name: ELLEN MCDOWELL Department: 12 Room: PREOP PHAS PREOP PHAS 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: Female 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 : 1985 Requested By: Order Number: [id number] Miranda MD: Deondre Morocho Measurements Intervals [place] Rate: 89 P: 49 VT: 158 QRS: 21 QRSD: 78 T: 24 QT: 372 QTc: 452 Interpretive Statements Normal sinus rhythm Septal infarct, age undetermined Abnormal ECG Electronically Signed On 03-04-2025 17:16:01 CDT by Deondre Morocho Procedure Note Deondre Morocho MD - 03/04/[address] [address] Test Date: 2025-03-04 Pat Name: ELLEN MCDOWELL Department: 12 Room: PREOP PHAS PREOP PHAS Gender: Female 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: [id number] : 1985 Requested By: Order Number: [id number] Reading MD: Deondre Morocho Measurements Intervals [place] Rate: 89 P: 49 VT: 158 QRS: 21 QRSD: 78 T: 24 QT: 372 QTc: 452 Interpretive Statements Normal sinus rhythm Septal infarct, age undetermined Abnormal ECG Electronically Signed On 03-04-2025 17:16:01 CDT by Deondre Morocho us Mikal Castillo MD ECG ORDERABLES Final Result INTERFACE SYSTEM Refer to clinic/hospital department * PREPARE RED BLOOD CELLS (03/04/2025 5:13 AM CDT) COMPONENT TYPE [id number] [facility] COMPONENT IDENTIFICATION [id number] [facility] UNIT ABO A [facility] UNIT RH POS [facility] CROSSMATCH Compatible [facility] COMPONENT STATUS Returned [facility] COMPONENT EXPIRATION DATE/TIME [id number] [facility] COMPONENT CODING SYSTEM 6200 [facility] VOLUME, BLOOD PRODUCT 350 [facility] Other, specify 03/04/2025 5: 13 AM CDT us Mikal Castillo MD LAB TRANSFUSION ORDERA BLES Edited Result - Final [facility] CLIA#[id number] [facility] [place] [address], * PROTIME-INR (02/20/2025 4:41 PM CDT) Pathologist [facility] INR 1.0 [facility] Comment: Reference Range 0.9-1.1 Moderate-intensity Warfarin Therapy 2.0-3.0 Higher-intensity Warfarin Therapy 3.0-4.0 PROTIME 10.9 9.0 - 11.5 sec [facility] Comment: For additional information, please refer to http://education.Farmigo/faq/YBJ195 (This link is being provided for informational/ educational purposes only.) Test Performed at: [facility] [address] [place] [address] Gisel Carias MD Blood 02/20/2025 4:41 PM CDT 02/22/2025 3:29 AM CDT Mikal Castillo MD HEMATOLOGY ORDERABLES Final Result Performing Organization Address City/[facility]/ZIP Co de Phone Number [facility] [phone] [facility] [place] [address] [place] [address] * (ABNORMAL) COMPREHENSIVE METABOLIC PANEL (02/20/2025 4:41 PM CDT) Pathologist [facility] GLUCOSE 104(H) 65 - 99 mg/dL [facility] Comment: Fasting reference interval For someone without known diabetes, a glucose value between 100 and 125 mg/dL is consistent with prediabetes and should be confirmed with a follow-up test. BUN 15 7 - 25 mg/dL [facility] CREATININE 0.95 0.50 - 0.97 mg/dL [facility] GFR 78 > OR = 60 mL/min/1. 73m2 [facility] BUN/CREAT RATIO SEE NOTE: 6 - 22 (calc) [facility] Comment: Not Reported: BUN and Creatinine are within reference range. SODIUM 137 135 - 146 mmol/L [facility] POTASSIUM 4.0 3.5 - 5.3 mmol/L [facility] CHLORIDE 99 98 - 110 mmol/L [facility] CO2 28 20 - 32 mmol/L [facility] CALCIUM 10.3(H) 8.6 - 10.2 mg/dL [facility] TOTAL PROTEIN 7.5 6.1 - 8.1 g/dL [facility] ALBUMIN 4.8 3.6 - 5.1 g/dL [facility] GLOBULIN 2.7 1.9 - 3.7 g/dL (calc) [facility] ALBUMIN/GLOBULIN RATIO 1.8 1.0 - 2.5 (calc) [facility] BILIRUBIN TOTAL 0.6 0.2 - 1.2 mg/dL [facility] ALKALINE PHOSPHATASE 57 31 - 125 U/L [facility] AST 26 10 - 30 U/L [facility] ALT 29 6 - 29 U/L [facility] Comment: Test Performed at: [facility] [address] [place] [address] Gisel Carias MD Blood 02/20/2025 4:41 PM CDT 02/22/2025 3:29 AM CDT Mikal Castillo MD CHEMISTRY ORDERABLES F inal Result [facility] [phone] [facility] [address] [place] [address] from Last 3 Months Insurance [facility] BLUE PREFERRED RX [facility] [employer] Advance Directives For more information, please contact: [phone] * Full Code (Latest Code Status on File) Date Activated Date Inactivated Comments 03/04/2025 3:21 PM 03/06/2025 1:56 PM * Full Code Date Activated Date Inactivated Comments 03/04/2025 5:13 AM 03/04/2025 3:21 PM
--- OUTSIDE RECORDS SUMMARY | 2025-05-02 15:42 | XMS_ITS | Encounter Summary ---
Author Organization [facility] Address [address] [place] [address] Care Team Providers Care Wood Heel Flap Rubber Name Role Phone Shine Fuentes NP Primary Care Provider [phone] Encounter Details Date Type Department Care Team (Latest Contact Info) Description 11/08/2006 Outpatient Historical [facility] THERAPY AIDE 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
--- OUTSIDE RECORDS SUMMARY | 2025-05-02 15:42 | XMS_ITS | Encounter Summary ---
Author Organization [facility] Address [address] [place] [address] Care Team Providers Care Belt Maker Name Role Phone Shine Fuentes NP Primary Care Provider Encounter Details Date Type Department Care Team (Late st Contact Info) Description 12/07/[address] 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 Gender Identity Not on file Sexual Orientation Not on file documented as of this encounter Plan of Treatment Not on file documented as of this encounter Procedures Procedure Name Priority Date/Time Associated Diagnosis Comments PT AND APTT Routine 12/07/2005 7:45 AM CDT URINALYSIS MICROSCOPY ONLY Routine 12/07/2005 7:25 AM CDT CBC WITH DIFFERENTIAL Routine 12/07/2005 7:25 AM CDT URINALYSIS W/REFLEX MICROSCOPIC Routine 12/07/2005 7:25 AM CDT BASIC METABOLIC PANEL Routine 12/07/2005 7:25 AM CDT documented in this encounter Results * PT AND APTT (12/07/2005 7:45 AM CDT) PROTIME 13.8 12.6 - 14.9 Secs INTERFACE SYSTEM Comment: As of 05 note change in normal range. INR 1.0 INTERFACE SYSTEM Comment: Expected Values for INR: DVT/PE Goal INR 2.5; range 2.0 - 3.0 Valve Replacement Tissue Goal INR 2.5; range 2.0 - 3.0 Mechanical Goal INR 3.0; range 2.5 - 3.5 POST-CT Goal INR 2.5; range 2.0 - 3.0 or Goal 3.0; range 2.5 - 3.5 Atrial Fibrillation Goal INR 2.5; range 2.0 - 3.0 Ischemic Stroke Goal INR 2.5; range 2.0 - 3.0 For additional information see Guidelines for Anticoagulation available from the pharmacy Jacek Ybarra PTT 21.8 21.5 - 34.4 Secs INTERFACE SYSTEM Comment: Therapeutic Range: Hi-level PE/DVT heparin protocol 90.1 -110 sec Lo-level PE/DVT heparin protocol 75.1 - 95 sec Cardiac Heparin Protocol 85.1 - 100 sec Neuro Heparin Protocol 70.1 - 85 sec As of 08/31/05 note change in APTT Normal Range. 12/07/2005 7:45 AM CDT Mark Crawford MD HEMATOLOGY ORDERABLES Fin al Result Performing Organization Address [facility] Phone Number INTERFACE SYSTEM Refer to clinic/hospital department * (ABNORMAL) URINALYSIS MICROSCOPY ONLY (12/07/2005 7:25 AM CDT) WBC URINE None Seen 0 - 2 INTERFACE SYSTEM RBC UA 0-2 0 - 2 INTERFACE SYSTEM HYALINE CAST None Seen 0 - 2 INTERFA CE SYSTEM BACTERIA UA Few(A) None Seen INTERFAC E SYSTEM 12/07/2005 7:25 AM CDT Mark Crawford MD URINE ORDERABLES Final Re sult Performing Organization Address [facility] de Phone Number INTERFACE SYSTEM Refer to clinic/hospital department * (ABNORMAL) URINALYSIS (12/07/2005 7:25 AM CDT) COLOR UA Yellow Straw INTERFACE SYSTEM CLARITY UA Cloudy(A) Clear INTERFACE SYSTEM LEUKOCYTE ESTERASE UA NEGATIVE [...] necessary. GLUCOSE UA NEGATIVE NEGATIVE INTERFACE SYSTEM KETONES UA NEGATIVE NEGATIVE INTERFACE SYSTEM UROBILINOGEN UA 0.2 0.2 INTE RFACE SYSTEM BILIRUBIN UA NEGATIVE NEGATIVE INTERFA CE SYSTEM BLOOD UA NEGATIVE NEGATIVE INTERFACE SYSTEM SPECIFIC GRAVITY UA 1.020 1.005 - 1.030 INTERFACE SYSTEM MICRO EXAM Yes(A) No INTERFACE SYSTEM 12/07/2005 7:25 AM CDT Mark Crawford MD URINE ORDERABLES Final Re sult Performing Organization Address [facility] Phone Number INTERFACE SYSTEM Refer to clinic/hospital department * (ABNORMAL) BASIC METABOLIC PANEL (12/07/2005 7:25 AM CDT) GLUCOSE 89 70 - 110 mg/dL INTERFACE SYSTEM BUN 6(L) 7 - 17 mg/dL INTERFACE SYSTEM CREATININE 0.4(L) 0.7 - 1.2 mg/dL INTERFACE SYSTEM SODIUM 136 136 - 145 mEq/L INTERFACE SYSTEM POTASSIUM 3.7 3.5 - 5.0 mEq/L INTERFACE SYSTEM CHLORIDE 103 95 - 110 mEq/L INTERFACE SYSTEM CO2 28 22 - 32 mmol/l INTERFACE SYSTEM ANION GAP 9 9 - 20 mEq/L INTERFACE SYSTEM OSMOLALITY, CALCULATED 277 275 - 295 mOsm/Kg INTERFACE SYSTEM CALCIUM 8.9 8.4 - 10.5 mg/dL INTERFACE SYSTEM 12/07/2005 7:25 AM CDT Mark Crawford MD CHEMISTRY ORDERABLES Martine l Result Performing Organization Address [facility] de Phone Number INTERFACE SYSTEM Refer to clinic/hospital department * (ABNORMAL) CBC WITH DIFFERENTIAL (12/07/2005 7:25 AM CDT) WBC 12.0 4.5 - 12.5 K/ul INTERFACE SYSTEM RBC 4.28 4.20 - 5.40 Mil/ul INTERFACE SYSTEM HEMOGLOBIN 13.0 12.0 - 16.0 g/dL INTERFACE SYSTEM HEMATOCRIT 37.5 36.0 - 46.0 % INTERFACE SYSTEM MCV 87.6 84.0 - 103.0 Fl INTERFACE SYSTEM MCH 30.4 27.0 - 34.0 pg INTERFACE SYSTEM MCHC 34.7 30.0 - 35.0 g/dL INTERFACE SYSTEM RDW 13.1 11.0 - 14.5 % INTERFACE SYSTEM PLATELETS 227 140 - 440 K/ul INTERFACE SYSTEM MPV 9.9 8.9 - 12.8 Fl INTERFACE SYSTEM NEUTROPHILS 78.3(H) 42.2 - 75.2 % INTERFACE SYSTEM LYMPHOCYTES 15.4(L) 24.0 - 44.0 % INTERFACE SYSTEM MONOCYTES 5.8 2.0 - 10.0 % INTERFACE SYSTEM EOSINOPHILS 0.3 0.0 - 7.0 % INTERFACE SYSTEM BASOPHILS 0.2 0.0 - 1.0 % INTERFACE SYSTEM NEUTROPHIL ABSOLUTE 9.4(H) 2.0 - 8.0 K/uL INTERFACE SYSTEM LYMPHOCYTE ABSOLUTE 1.9 1.2 - 4.0 K/ul INTERFACE SYSTEM MONOCYTE ABSOLUTE 0.7(H) 0.1 - 0.6 K/ul INTERFACE SYSTEM EOSINOPHIL ABSOLUTE 0.0 0.0 - 0.7 K/ul INTERFACE SYSTEM BASOPHILS ABSOLUTE 0.0 0.0 - 0.2 K/ul INTERFACE SYSTEM 12/07/2005 7:25 AM CDT us Mark Crawford MD HEMATOLOGY ORDERABLES Fin al Result INTERFACE SYSTEM Refer to clinic/hospital department documented in this encounter Visit Diagnoses Diagnosis Hematemesis- Primary documented in this encounter Care Teams Belt Maker Relationship Specialty Start Date End Date Shine Fuentes NP PCP - General Family Practice 06/29/10 documented as of this encounter
--- OUTSIDE RECORDS SUMMARY | 2025-05-02 15:42 | XMS_ITS | Patient Health Record ---
Author Organization [facility] Address [address] [place] [address] Care Team Providers Care Fire Extinguisher Tester Name Role Phone [facility] Primary Care Provider [phone] [place] Unavailable Unavailable Allergies Allergen (clinical drug ingredient) Drug/Non Drug Allergy documented on EMR Reaction Allergy Type Onset Date Status escitalopram Lexapro side effects Drug Allergy A ctive zonisamide Zonegran hallucinations Drug Allergy A ctive codeine Codeine hives Drug Allergy Active Penicillin anaphylaxis Drug Allergy Acti ve Substance with sulfonamide structure and antibacterial mechanism of action (substance) Sulfa Antibiotics rash Drug Allergy Active Reason For Referral No Information Medications Medication SIG (Take, Route, Frequency, Duration) Notes Start Date End Date Status Baclofen 20 mg Tablet TAKE ONE TABLET BY MOUTH TWICE DAILY NEEDED FOR MUSCLE SPASMS FOR 30 DAYS; Duration: 30 days Active Albuterol Sulfate HFA 108 (90 Base) MCG/ACT Aerosol Solution 2 puffs Inhalation four times a day prn; Duration: 30 days 10/16/2023 Active Hydroxychloroquine Sulfate 200 MG Tablet TAKE ONE TABLET BY MOUTH TWICE DAILY Oral; Duration: 30 Days Active predniSONE 20 MG Tablet TAKE TWO TABLETS BY MOUTH DAILY FOR UP TO SEVEN DAYS NEEDED FOR JOINT PAIN FLARE OR ARTHRITIS FLARE. Oral; Duration: 15 Days Active Humira (2 Syringe) 40 MG/0.8ML Prefilled Syringe Kit Subcutaneous; Duration: 28 Days Not-Taking EPINEPHrine 0.3 MG/0.3ML Solution Auto-injector INJECT ONE PEN INTRAMUSCULARLY ONCE NEEDED FOR ANAPHYLAXIS; ADMINISTRATION MUST BE FOLLOWED BY ER VISIT WITHIN 24 HOURS.; Duration: 1 Active Ondansetron HCl 4 mg Tablet TAKE ONE TABLET BY MOUTH EVERY 4 HOURS NEEDED FOR NAUSEA FOR 30 DAYS; Duration: 30 Active Leflunomide 20 MG Tablet Oral; Duration: 30 Days Active Nurtec 75 mg Tablet Disintegrating TAKE ONE TABLET ON TONGUE AND ALLOW TO DISSOLVE EVERY DAILY NEEDED FOR MIRGRAINE FOR 30 DAYS; Duration: 30 Active Triamcinolone Acetonide 0.1 % Cream APPLY TOPICALLY EXTERNALLY TWICE DAILY DIRECTED FOR 30 DAYS.; Duration: 30 Active Pantoprazole Sodium 40 mg Tablet Delayed Release TAKE ONE TABLET BY MOUTH ONCE DAILY FOR 30 DAYS.; Duration: 30 Active Clindamycin Phosphate 1 % Gel apply EXTERNALLY TWICE DAILY FOR 30 DAYS; Duration: 30 Active traMADol HCl 50 mg Tablet TAKE ONE TABLE T BY MOUTH EVERY 4 HOURS NEEDED FOR SEVERE PAIN FOR 30 DAYS; Duration: 30 02/13/2025 Active Cephalexin 500 MG Capsule 2 caps Orally twice a day; Duration: 04/29/2025 05/09/2025 Active Pregabalin 100 MG Capsule TAKE ONE CAPSU LE BY MOUTH TWICE DAILY Oral; Duration: 30 Days Not-Taking Triamterene-HCTZ 37.5-25 MG Tablet TAKE ONE TABLET BY MOUTH EVERY MORNING ONCE A DAY NEEDED FOR SWELLING; Duration: 30 Active NIFEdipine ER Osmotic Release 30 mg Tablet Extended Release 24 Hour TAKE ONE TABLET BY MOUTH ON an EMPTY stomach EVERY DAY; Duration: 30 Active Celecoxib 200 MG Capsule TAKE ONE CAPSUL E BY MOUTH TWICE DAILY Oral; Duration: 90 Days Not-Taking Folic Acid 1 MG Tablet TAKE ONE TABLET B Y MOUTH DAILY Oral; Duration: 30 Days Not-Taking Pregabalin 200 MG Capsule TAKE ONE CAPSU LE BY MOUTH TWICE DAILY Oral; Duration: 30 Days Active methylPREDNISolone 4 mg Tablet Therapy Pack TAKE DIRECTED PER package INSERT; Duration: 6 Not-Taking Cimzia (2 Syringe) 200 MG/ML Prefilled Syringe Kit INJECT 200 MG SUBCUTANEOUSLY ONCE EVERY TWO WEEKS Subcutaneous; Duration: 28 Days Not-Taking Celecoxib 100 MG Capsule 1 capsule with food Oral Once a day; Duration: 30 days Not-Taking Levocetirizine Dihydrochloride 5 mg Tablet TAKE ONE TABLET BY MOUTH EVERY DAY; Duration: 30 Active Azelastine HCl 0.1 % Solution INSTILL TWO SPRAYS IN EACH NOSTRIL TWICE DAILY DIRECTED; Duration: 30 Active Immunizations Vaccine Route Administration Date Status Comme nts Flucelvax Trivalent, Syringe 0.5 mL, PF Unknown 024 Refused Social History Tobacco Use: Social History Observation Description Date Details (start date - stop date) Former Smoker NA - NA Social History Depression Screening Social Info Question Answer Notes depression screening findings Findings Positive (9+ without suicidality) PHQ-9 Little interest or pleasure in doing things Not at all Feeling down, depressed, or hopeless Not at all Trouble falling or staying asleep, or sleeping t oo much Several days Feeling tired or having little energy Nearly trey ry day Poor appetite or overeating Not at all Feeling bad about yourself, or that you are a failure, or have let yourself or your family down Not at all Trouble concentrating on thi ngs, such as reading the newspaper or watching television Nearly every day Moving or speaking so slowly that other people could have noticed. Or the opposite ? being so fidgety or restless that you have been moving around a lot more than usual Several days Thoughts that you would be b aleksandra off , or of hurting yourself in some way Not at all Total Score 8 Interpretation Mild Depression Drugs/Alcohol: Social Info Question Answer Notes Alcohol Screen (Audit-C) Did you have a drink containing alcohol in the past year? No Points 0 Interpretation Negative Drugs Have you used drugs other than those for medical reasons in the past 12 months? No Tobacco Use: Social Info Question Answer Notes Tobacco Control (Standard) Tobacco use: Former smoker Additional Details Category Social Info Options Details Drugs/Alcohol: Do you smoke marijuana? De nies Do you drink alcohol? No Section Notes: 11/26/21 11/26/21 11/26/21 11/26/21 11/26/21 PHQ-9 Depression screen completed 11/17/2023 score 3 Depression screen completed 11/17/2023 score 3, PHQ9 02/13/2025 11/26/21 Depression screen completed 11/17/2023 score 3 Depression screen completed 11/17/2023 score 3 Depression screen completed 11/17/2023 score 3 Depression screen completed 11/17/2023 score 3 11/26/21 PHQ-9 11/26/21 PHQ-9 11/26/21 PHQ-9 11/26/21 11/26/21 11/26/21 11/26/21 11/26/21 Problems Problem Type SNOMED Code ICD Code Onset Dates Problem Status W/U Status Risk Notes Problem Headache disorder (673226415) Other headache syndrome (G44.89) Active confirmed Problem Nausea (490119376) Nausea (R11.0) Active confir med Problem Bronchitis (68258613) Bronchitis (J40) Active confirmed Problem Gastroesophageal reflux disease without esophagitis (097236687) Gastroesophageal reflux disease without esophagitis (K21.9) Active confirmed Problem Morbid obesity (165367500) Obesity, morbid (E66.01) Active confirmed Problem Sinusitis (29873579) Sinusitis (J32.9) Active confirmed Problem Acute maxillary sinusitis (83027668) Acute non-recurrent maxillary sinusitis (J01.00) Active confirmed Problem Obesity (395545285) Obesity (BMI 30-39.9) (E66.9) Active confirmed Problem Migraine with aura (8027803) Migraine with aura and without status migrainosus, not intractable (G43.109) Active confirmed Problem Disorder of connective tissue (794975541) Connective tissue disorder (M35.9) Active confirmed Problem Bilateral earache (finding) (612307327) Otalgia of both ears (H92.03) Active confirmed Problem Hip pain (28735935) Hip pain (M25.559) Active c onfirmed Problem Overweight (495721227) Overweight (BMI 25.0-29.9) (E66.3) Active confirmed Problem Morbid obesity (991665027) Morbid obesity (E66.01) Active confirmed Problem Raynaud's disease (269464551) Raynaud''s disease without gangrene (I73.00) Active confirmed Problem Dietary management surveillance (756303200) Dietary surveillance and counseling (Z71.3) Active confirmed Problem Body mass index 30.00 to 34.99 (039165155649342) Body mass index [BMI] 31.0-31.9, adult (Z68.31) Active confirmed Problem Body mass index 30.00 to 34.99 (285246025164213) Body mass index [BMI] 33.0-33.9, adult (Z68.33) Active confirmed Problem Body mass index 30.00 to 34.99 (677200136327625) Body mass index [BMI] 34.0-34.9, adult (Z68.34) Active confirmed Problem Body mass index 35.00 to 39.99 (667468463460182) Body mass index [BMI] 36.0-36.9, adult (Z68.36) Active confirmed Problem Body mass index 35.00 to 39.99 (073586527742132) Body mass index [BMI] 38.0-38.9, adult (Z68.38) Active confirmed Problem Primary hypertension (09094826) Primary hypertension (I10) Active confirmed Problem Acute cough (167574612209943103 ) Acute cough (R05.1) Active confirmed Problem Body mass index 30+ - obesity (691991408) Body mass index [BMI] 30.0-30.9, adult (Z68.30) Active confirmed Problem Primary osteoarthritis (347558201) Primary osteoarthritis involving multiple joints (M15.9) Active confirmed Vital Signs Heart Rate 102 /min 02/13/2025 Temperature 98.1 degrees Fahrenheit 02/13/2025 Respiratory Rate 18 /min 02/13/2025 Height-cm 160.02 cm 02/13/2025 Blood pressure diastolic 93 mm Hg 02/13/2025 Oximetry 95 % 02/13/2025 Weight-kg 94.8 kg 02/13/2025 Height 63 in 02/13/2025 Blood pressure systolic 123 mm Hg 02/13/2025 Weight 209 lbs 02/13/2025 BMI 37.02 kg/m2 02/13/2025 Encounters Encounter Location Date Provider Diagnosis [facility] [address] [address] 05/16/2024 Lily Ryan Encounter for screen ing mammogram for malignant neoplasm of breast Z12.31 ; Lumbar pain M54.50 ; Muscle spasm M62.838 ; Raynaud''s disease without gangrene I73.00 and Joint pain M25.50 [facility] [address] [address] 08/15/2024 Lily Ryan Lumbar pain M54.50 ; Primary osteoarthritis involving multiple joints M15.9 and Otitis media H66.90 [facility] [address] [address] 11/14/2024 Lily Ryan Joint pain M25.50 ; Myalgia M79.10 and Rheumatoid arteritis I00 [facility] [address] [place] [address] 02/13/[address] [facility] Acne vulgaris L70.0 ; Joint pain M25.50 ; Sinusitis J32.9 ; Bronchitis J40 ; Neuropathic pain M79.2 ; Nausea R11.0 and Migraine with aura and without status migrainosus, not intractable G43.109 [facility] [address] [place] [address] 06/06/[address] [facility] Muscle spasm M62.838 [facility] [address] [place] [address] 06/24/[address] [facility] Otalgia, unspecified laterality H92.09 [facility] [address] [place] [address] 06/27/[address] [facility] Encounter for immunization Z23 and Immunization not carried out because of patient refusal Z28.21 [facility] [address] [place] [address] 07/25/2024 [facility] [address] [place] [address] 09/19/2024 [facility] [address] [place] [address] 04/29/[address] [facility] Assessments Encounter Date Diagnosis (ICD Code) Assessment Notes Treatment Notes Treatment Clinical Notes Section Notes 05/16/2024 Encounter for screening mammogram for malignant neoplasm of breast (ICD-10 - Z12.31) mammogram 05/16/2024 Lumbar pain (ICD-10 - M54.50) tramadol 06/06/2024 Muscle spasm (ICD-10 - M62.838) 06/24/2024 Otalgia, unspecified laterality (ICD-10 - H92.09) 06/27/2024 Encounter for immunization (ICD-10 - Z23) 08/15/2024 Lumbar pain (ICD-10 - M54.50) tramadol 08/15/2024 Primary osteoarthritis involving multiple joints (ICD-10 - M15.9) medrol dose pack 11/14/2024 Joint pain (ICD-10 - M25.50) tramadol toradol 60 mg im 11/14/2024 Myalgia (ICD-10 - M79.10) 02/13/2025 Acne vulgaris (ICD-10 - L70.0) clindamycin 02/13/2025 Joint pain (ICD-10 - M25.50) tramadol 02/13/2025 Sinusitis (ICD-10 - J32.9) keflex 11/14/2024 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) continue meds depomedrol/deca dron im 06/27/2024 Immunization not carried out because of patient refusal (ICD-10 - Z28.21) 08/15/2024 Otitis media (ICD-10 - H66.90) cephalexin 05/16/2024 Muscle spasm (ICD-10 - M62.838) baclofen 05/16/2024 Raynaud''s disease without gangrene (ICD-10 - I73.00) continue meds medrol dose pack 02/13/2025 Bronchitis (ICD-10 - J40) albuteral 02/13/2025 Neuropathic pain (ICD-10 - M79.2) lyrica 05/16/2024 Joint pain (ICD-10 - M25.50) 02/13/2025 Nausea (ICD-10 - R11.0) zofran 02/13/2025 Migraine with aura and without status migrainosus, not intractable (ICD-10 - G43.109) nurtec 05/16/2024 Other Questions asked and answered; discharged to home. 08/15/2024 Other Questions asked and answered; discharged to home. 11/14/2024 Other Questions asked and answered; discharged to home. 02/13/2025 Other Questions asked and answered; discharged to home. Plan Of Treatment Pending Test Test Name Order Date Mammogram Screening Digital Breast Tomos carmelo, bilateral - [id number] 05/16/2024 Next Appt Details Provider Name:Lily Ryan, 05/08/2025 09:00:00 AM, [address] , [facility], [place], [address], Insurance Providers Payer Name Payer Address Payer Phone Subscriber Number Group Number Insured Name Patient Relationship to Insured Coverage Start Date Coverage End Date [place] [address] [place] [phone] [id number] Ellen Mcdowell Self - patient is the insured 3 Medications Administered Medication Instructions Date of Administration Dosage Notes DEPO-Medrol 11/26/2021 40 mg ndc 37259-996 3-1 pt tolerated well/instructed to wait 20 min DEPO-Medrol 03/28/2022 40 mg ndc 93676-393 3-1 pt tolerated well/instructed to wait 20 min DEPO-Medrol 05/10/2022 40 mg NDC: [address]-96 Patient tolerated well, advised to wait 20 min at clinic DEPO-Medrol 07/22/2022 40 mg [id number]- 01 pt tolerated well/instructed to wait 20 min DEPO-Medrol 11/14/2024 [place] [address]-255 3-01 pt tolerated well/instructed to wait 20 min dexAMETHasone 11/26/2021 4 mg ndc 48838-3 39-30 pt tolerated well/instructed to wait 20 min dexAMETHasone 03/28/2022 [place] [address]-1 39-30 pt tolerated well/instructed to wait 20 min dexAMETHasone 05/10/2022 4 mg NDC: 07943-269-60 Patient tolerated well, advised to wait 20 min at clinic dexAMETHasone 07/22/2022 [place] [address]-3 39-30 pt tolerated well/instructed to wait 20 min dexAMETHasone 11/14/2024 4 mg [facility] 14203-4 423-00 pt tolerated well/instructed to wait 20 min Ketorolac Tromethamine 11/26/2021 [place] [address]-380-01 pt tolerated well/instructed to wait 20 min Ketorolac Tromethamine 01/27/2022 60 mg NDC: 57854-535-09 Patient tolerated well, advised to wait 20 min at clinic Ketorolac Tromethamine 05/10/2022 60 mg NDC: 43154-748-59 Patient tolerated well, advised to wait 20 min at clinic Ketorolac Tromethamine 07/19/2022 60 mg NDC: 66623-095-76 Patient tolerated well, advised to wait 20 min at clinic Ketorolac Tromethamine 10/27/2022 60 mg NDC: [address]-25 Patient tolerated well, advised to wait 20 min at clinic Ketorolac Tromethamine 11/14/2024 [address] [place] [address]-20 pt tolerated well/instructed to wait 20 min Promethazine HCl 07/19/2022 25 mg NDC: 7697-1470-56 Patient tolerated well, advised to wait 20 min at clinic Medical (General) History Medical History History ICD Code Chicken Pox Pneumonia Arthritis chronic bladder infections migraine headaches Back Trouble High Blood Pressure hives bronchitis anxiety depression fibromyalgia GERD irritable bowel syndrome kidney stones PCOS Esophagitis covid Surgical History Surgery Date(Month/Year) kidney stone 2011 wisdom teeth extraction 2002 knee, right cholecystectomy 2009 Hospitalization History Reason Date(Month/Year) childbirth x2 bleeding ulcer
--- OUTSIDE RECORDS SUMMARY | 2025-05-02 15:42 | XMS_ITS | Encounter Summary ---
Author Organization [facility] Address [address] [place] [address] Care Team Providers Care Licensed Practical Nurse Instructor Name Role Phone Shine Fuentes NP Primary Care Provider Encounter Details Date Type Department Care Team (Latest Contact Info) Description 12/26/2005 Outpatient Historical [facility] FY[facility] Mark Emery MD NO ADDRESS ON FILE Supervision of Other Normal (Primary Dx) Social History Tobacco Use Types Packs/Day Years Used Date Smoking Tobacco: Never Assessed Comments Unknown Sex and Gender Information Value Date Recorded Sex Assigned at Not on file Legal Sex Female 4:[address] Gender Identity Not on file Sexual Orientation Not on file documented as of this encounter Plan of Treatment Not on file documented as of this encounter Visit Diagnoses Diagnosis Supervision of other normal - Primary documented in this encounter Care Teams Licensed Practical Nurse Instructor Relationship Specialty Start Date End Date Shine Fuentes NP PCP - General Family Practice 06/29/10 documented as of this encounter
--- OUTSIDE RECORDS SUMMARY | 2025-05-02 15:42 | XMS_ITS | Encounter Summary ---
Author Organization [facility] Address [address] [place] [address] Care Team Providers Care Broke Beater Operator Name Role Phone Shine Fuentes NP Primary Care Provider Encounter Details Date Type Department Care Team (Latest Contact Info) Description 06/12/2006 Outpatient Historical [facility] BUSINESS [employer]ESS [employer] 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
--- OUTSIDE RECORDS SUMMARY | 2025-05-02 15:42 | XMS_ITS | Encounter Summary ---
Author Organization [facility] Address [address] [place] [address] Care Team Providers Care Biological Plant Operator Name Role Phone Shine Fuentes [facility] Primary Care Provider [phone] Encounter Details Date Type Department Care Team (Latest Contact Info) Description 04/16/2007 Outpatient Historical [facility] [place] [address] [place] [id number] José Miguel Moran MD [address] [facility] [address] [place] [address] Esophageal Reflux (Primary Dx) Social History Tobacco Use Types Packs/Day Years Used Date Smoking Tobacco: Never Assessed Comments Unknown Sex and Gender Information Value Date Recorded Sex Assigned at Not on file 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
--- OUTSIDE RECORDS SUMMARY | 2025-05-02 15:42 | XMS_ITS | Encounter Summary ---
Author Organization [facility] Address [address] [place] [address] Care Team Providers Care [employer] Supervisor Name Role Phone Shine Fuentes NP Primary Care Provider Encounter Details Date Type Department Care Team (Late st Contact Info) Description 11/30/2005 Emergency [facility] Emergency Department [address] [place] [address] Judd Grimaldo MD NO ADDRESS ON FILE Mild Hyperemesis Gravidarum, Antepartum (Primary Dx) Social History Tobacco Use Types Packs/Day Years Used Date Smoking Tobacco: Never Assessed Comments Unknown Sex and Gender Information Value Date Recorded Sex Assigned at Not on file 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 Gender Identity Not on file Sexual Orientation Not on file documented as of this encounter Plan of Treatment Not on file documented as of this encounter Procedures Procedure Name Priority Date/Time Associated Diagnosis Comments WET PREP GENITAL Routine 11/30/2005 9:51 PM CDT ICTOTEST Routine 11/30/2005 7:05 PM CDT BASIC METABOLIC PANEL PLUS Routine 11/30/2005 7:05 PM CDT URINALYSIS MICROSCOPY ONLY Routine 11/30/2005 7:05 PM CDT CBC WITH DIFFERENTIAL Routine 11/30/2005 7:05 PM CDT KETONE, QUALITATIVE, URINE Routine 11/30/2005 7:05 PM CDT URINALYSIS W/REFLEX MICROSCOPIC Routine 11/30/2005 7:05 PM CDT HCG QUANTITATIVE, BLOOD Routine 11/30/2005 7:05 PM CDT LIPASE Routine 11/30/2005 7:05 PM CDT AMYLASE Routine 11/30/2005 7:05 PM CDT BASIC METABOLIC PANEL Routine 11/30/2005 7:05 PM CDT US OB LTD 1 OR MORE FETUSES Routine 11/30/2005 6:02 PM CDT documented in this encounter Results * (ABNORMAL) WET PREP GENITAL (11/30/2005 9:51 PM CDT) WET PREP GENITAL None Observed None Observed INTERFACE SYSTEM WET YEAST None Observed None Observed INTERFACE SYSTEM WET CLUE CELLS Present(A) None Observed INTERFACE SYSTEM 11/30/2005 9:51 PM CDT Judd Grimaldo MD MICROBIOLOGY - GENERAL ORDERAB LES Final Result INTERFACE SYSTEM Refer to clinic/hospital department * (ABNORMAL) HCG QUANTITATIVE, BLOOD (11/30/2005 7:05 PM CDT) CHORIONIC GONADOTROPIN, TOTAL 518344.0(H ) 0.0 - 10.0 mlU/ML INTERFACE SYSTEM Comment: As of 04 at 12:00 p.m. [facility] has changed the methodology for ThCG, and with this change the reference range has changed from 0-5.0 mIU/ml to 0-10.0 mIU/ml. ----- ----- Total HCG levels between 10 mIU/mL and 25 mIU/mL may be indicative of early but need to be correlated with other clinical findings. HCG ranges during normal , as reported by the stage hand, are summarized as follows: Gestational Age Expected hCG Values(mIU/ml) 0.2-1 Weeks 5 - 50 1-2 Weeks 50 - 500 2-3 Weeks 100 - 5,000 3-4 Weeks 1,000 - 50,000 5-6 Weeks 10,000 - 100,000 6-8 Weeks 15,000 - 200,000 2-3 Months 10,000 - 100,000 11/30/2005 7:05 PM CDT us Judd Grimaldo MD CHEMISTRY ORDERABLES Final Res ult INTERFACE SYSTEM Refer to clinic/hospital department * (ABNORMAL) BASIC METABOLIC PANEL PLUS (11/30/2005 7:05 PM CDT) TOTAL PROTEIN 8.5(H) 6.3 - 8.2 g/dL INTERFACE SYSTEM ALBUMIN 5.2(H) 3.5 - 5.0 g/dL INTERFACE SYSTEM ALKALINE PHOSPHATASE 55 39 - 126 U/L INTERFACE SYSTEM Comment: As of 05 the [facility] has changed testing methods. The new reference range is 25-100 The old referance range was 38-126 AST 29 8 - 33 U/L INTERFACE SYSTEM Comment: As of 05 the [facility] has changed testing methods. The new reference range is 8-33 The old referance range was Males 17-59 Females 14-36 ALT 21 4 - 36 IU/L INTERFACE SYSTEM Comment: As of 05 the [facility] has changed testing methods. The new reference range is 4-36 The old referance range was Males 21-72 Females 9-52 BILIRUBIN TOTAL 1.0 0.3 - 1.2 mg/dL INTERFACE SYSTEM Comment: As of 05 the [facility] has changed testing methods. The new reference range is 0.3-1.2 The old referance range was 0.2-1.4 11/30/2005 7:05 PM CDT us Judd Grimaldo MD CHEMISTRY ORDERABLES Final Res ult Performing Organization Address [facility] Phone Number INTERFACE SYSTEM Refer to clinic/hospital department * LIPASE (11/30/2005 7:05 PM CDT) LIPASE 46 6 - 51 U/L INTERFACE SYSTEM Comment: As of 05 the [facility] has changed testing methods. The new reference range is 6-51 The old referance range was 23-300 11/30/2005 7:05 PM CDT us Judd Grimaldo MD CHEMISTRY ORDERABLES Final Res ult Performing Organization Address [facility] Phone Number INTERFACE SYSTEM Refer to clinic/hospital department * AMYLASE (11/30/2005 7:05 PM CDT) AMYLASE 76 20 - 104 U/L INTERFACE SYSTEM Comment: As of 05 the [facility] has changed testing methods. The new reference range is 20-104 The old referance range was 30-120 11/30/2005 7:05 PM CDT us Judd Grimaldo MD CHEMISTRY ORDERABLES Final Res ult Performing Organization Address [facility] Phone Number INTERFACE SYSTEM Refer to clinic/hospital department * ICTOTEST (11/30/2005 7:05 PM CDT) ICTO Negative Negative INTERFACE SYSTEM 11/30/2005 7:05 PM CDT us Judd Grimaldo MD URINE ORDERABLES Final Result Performing Organization Address [facility] INTERFACE SYSTEM Refer to clinic/hospital department * (ABNORMAL) ACETONE QUALITATIVE, URINE (11/30/2005 7:05 PM CDT) Pathologist [facility] KETONES UA Large(A) Negative INTERFACE SYSTEM 11/30/2005 7:05 PM CDT us Judd Grimaldo MD URINE ORDERABLES Final Result Performing Organization Address [facility] INTERFACE SYSTEM Refer to clinic/hospital department * (ABNORMAL) URINALYSIS MICROSCOPY ONLY (11/30/2005 7:05 PM CDT) Pathologist [facility] WBC URINE 16-25(A) 0 - 2 INTERFACE SYSTEM RBC UA 3-5(A) 0 - 2 INTERFACE SYSTEM HYALINE CAST 0-2 0 - 2 INTERFA CE SYSTEM BACTERIA UA Many(A) None Seen INTERFAC E SYSTEM 11/30/2005 7:05 PM CDT us Judd Grimaldo MD URINE ORDERABLES Final Result Performing Organization Address [facility] INTERFACE SYSTEM Refer to clinic/hospital department * (ABNORMAL) URINALYSIS (11/30/2005 7:05 PM CDT) Pathologist [facility] COLOR UA Yellow Straw INTERFACE SYSTEM CLARITY UA SL CLOUDY Clear INTERFACE SYSTEM LEUKOCYTE ESTERASE UA Small(A) NEGATIVE INTERFACE SYSTEM NITRITE UA NEGATIVE NEGATIVE INTERFACE SYSTEM PH UA 6.0 5.0 - 9.0 INTERFACE SYSTEM PROTEIN UA 100 mg/dl(A) NEGATIVE INTERFACE SYSTEM Comment: As of 05 positive protein results obtained on routine urinalysis will not be confirmed by sulfosalicylic acid (SSA) precipitation. Current methodology for protein detection is highly sensitive for detection of albumin; therefore, confirmation is not necessary. GLUCOSE UA NEGATIVE NEGATIVE INTERFACE SYSTEM UROBILINOGEN UA 1.0(A) 0.2 INTE RFACE SYSTEM BLOOD UA NEGATIVE NEGATIVE INTERFACE SYSTEM SPECIFIC GRAVITY UA >=1.030(A) 1.005 - 1.030 INTERFACE SYSTEM MICRO EXAM Yes(A) No INTERFACE SYSTEM 11/30/2005 7:05 PM CDT us Judd Grimaldo MD URINE ORDERABLES Final Result Performing Organization Address [facility] de Phone Number INTERFACE SYSTEM Refer to clinic/hospital department * (ABNORMAL) BASIC METABOLIC PANEL (11/30/2005 7:05 PM CDT) Pathologist [facility] GLUCOSE 96 70 - 110 mg/dL INTERFACE SYSTEM BUN 11 7 - 17 mg/dL INTERFACE SYSTEM CREATININE 0.5(L) 0.7 - 1.2 mg/dL INTERFACE SYSTEM SODIUM 133(L) 136 - 145 mEq/L INTERFACE SYSTEM POTASSIUM 3.0(L) 3.5 - 5.0 mEq/L INTERFACE SYSTEM CHLORIDE 92(L) 95 - 110 mEq/L INTERFACE SYSTEM CO2 33(H) 22 - 32 mmol/l INTERFACE SYSTEM ANION GAP 11 9 - 20 mEq/L INTERFACE SYSTEM OSMOLALITY, CALCULATED 272(L) 275 - 295 mOsm/Kg INTERFACE SYSTEM CALCIUM 11.5(H) 8.4 - 10.5 mg/dL INTERFACE SYSTEM 11/30/2005 7:05 PM CDT us Judd Grimaldo MD CHEMISTRY ORDERABLES Final Res ult Performing Organization Address [facility] Phone Number INTERFACE SYSTEM Refer to clinic/hospital department * (ABNORMAL) CBC WITH DIFFERENTIAL (11/30/2005 7:05 PM CDT) Pathologist [facility] PERIPHERAL BLOOD SMEAR REVIEW Automated Diff Automated Diff INTERFACE SYSTEM WBC 10.0 4.5 - 12.5 K/ul INTERFACE SYSTEM RBC 5.41(H) 4.20 - 5.40 Mil/ul INTERFACE SYSTEM HEMOGLOBIN 16.4(H) 12.0 - 16.0 g/dL INTERFACE SYSTEM HEMATOCRIT 46.0 36.0 - 46.0 % INTERFACE SYSTEM MCV 85.0 84.0 - 103.0 Fl INTERFACE SYSTEM MCH 30.3 27.0 - 34.0 pg INTERFACE SYSTEM MCHC 35.7(H) 30.0 - 35.0 g/dL INTERFACE SYSTEM RDW 12.6 11.0 - 14.5 % INTERFACE SYSTEM PLATELETS 329 140 - 440 K/ul INTERFACE SYSTEM MPV 10.1 8.9 - 12.8 Fl INTERFACE SYSTEM NEUTROPHILS 66.3 42.2 - 75.2 % INTERFACE SYSTEM LYMPHOCYTES 22.5(L) 24.0 - 44.0 % INTERFACE SYSTEM MONOCYTES 10.4(H) 2.0 - 10.0 % INTERFA CE SYSTEM EOSINOPHILS 0.6 0.0 - 7.0 % INTERF CUATE SYSTEM BASOPHILS 0.2 0.0 - 1.0 % INTERFAC E SYSTEM NEUTROPHIL ABSOLUTE 6.7 2.0 - 8.0 K/uL INTERFACE SYSTEM LYMPHOCYTE ABSOLUTE 2.3 1.2 - 4.0 K/ul INTERFACE SYSTEM MONOCYTE ABSOLUTE 1.0(H) 0.1 - 0.6 K/ul INTERFACE SYSTEM EOSINOPHIL ABSOLUTE 0.1 0.0 - 0.7 K/ul INTERFACE SYSTEM BASOPHILS ABSOLUTE 0.0 0.0 - 0.2 K/ul INTERFACE SYSTEM 11/30/2005 7:05 PM CDT Judd Grimaldo MD HEMATOLOGY ORDERABLES Final Re sult INTERFACE SYSTEM Refer to clinic/hospital department * US OB LTD 1 OR MORE FETUSES (11/30/2005 6:02 PM CDT) Anatomical Region Laterality Modality Pelvis Other 11/30/2005 6:02 PM CDT Narrative 04/30/2009 7:50 AM CDT TRANSVAGINAL AND LIMITED OB ULTRASOUND DATED 11/30/05 HISTORY: Pelvic pain. There is a single active intrauterine gestation. The crown-rump length is 8.3 mm correlating with a gestational age of 6 weeks, 6 days. The heart rate is 138 beats per minute. The uterus is retroflexed. There are prominent blood vessels which appear to be within the myometrium in the lower uterine segment. 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 The uterus is otherwise unremarkable. There is no free fluid within the pelvis. The right ovary is 1.8 x 1.9 x 2.6 cm. The left is 2.5 x 2.6 x 3.9 cm. They are normal in appearance. IMPRESSION: Single active intrauterine gestation of approximately 6 weeks, 6 days. 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 Pelvic varices rarely cause obstetrical complications. amh / Dictated By: Radha Brand M.D. Electronically Signed By: Radha Brand M.D. Date Signed: 12/01/05 Procedure Note Provider, Historical - 06/24/2009 TRANSVAGINAL AND LIMITED OB ULTRASOUND DATED 11/30/05 HISTORY: Pelvic pain. There is a single active intrauterine gestation. The crown-rump length is8.3 mm correlating with a gestational age of 6 weeks, 6 days. The heart rate is 138 beats perminute. The uterus is retroflexed. There are prominent blood vessels which appear to be withinthe myometrium in the lower uterine segment. 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 The uterus isotherwise unremarkable. There is no free fluid within the pelvis. The right ovary is 1.8 x 1.9 x2.6 cm. The left is 2.5 x 2.6 x 3.9 cm. They are normal in appearance. 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 Pelvic varices rarelycause obstetrical complications. amh / Dictated By: Radha Brand M.D. Electronically Signed By: Radha Brand M.D. Date Signed: 12/01/05 us Judd Grimaldo MD US ORDERABLES Final Result documented in this encounter Visit Diagnoses Diagnosis Mild hyperemesis gravidarum, antepartum- Primary documented in this encounter Care Teams [employer] Supervisor Relationship Specialty Start Date End Date Shine Fuentes NP PCP - General Family Practice 06/29/10 documented as of this encounter
--- NOTE | 2025-05-02 15:45 | W.ED.LOWEXIN ---
HPI - Extremity Injury (Lower) General: Chief Complaint: Extremity Injury, Lower Stated Complaint: L knee painful Time Seen by Provider: 05/02/25 15:36 Source: patient Mode of arrival: ambulatory Limitations: no limitations History of Present Illness: Patient is a 39-year-old female who presents to ED today for evaluation of a left knee injury. Patient states she was jumping down from a Homecoming parade float when she felt her knee dislocate . States she popped it back into place but has continued to have pain. She states any time she tries to walk she can feel it re-dislocate. States she got a velcro knee brace and is wearing it currently upon arrival. No previous injuries to that knee. MD complaint: knee injury Onset (ago): hour(s) Injury: Left: knee Place: street/outdoors Severity: moderate Relieving factors: immobilization Exacerbating factors: weight bearing Context: jumping Associated symptoms: Reports inability to bear weight Other symptoms: none Related Data Home Medications ?Medication ?Instructions ?Recorded ?Confirmed pantoprazole 40 mg tablet,delayed 40 mg PO QDAY 08/26/19 05/02/25 release (Protonix) levocetirizine 5 mg tablet (Xyzal) 5 mg PO DAILY 10/30/19 05/02/25 epinephrine 0.3 mg/0.3 mL 0.3 mg IM Q10M PRN Allergic 09/13/21 05/02/25 injection, auto-injector Reaction baclofen 20 mg tablet 20 mg PO BID 03/23/23 05/02/25 tramadol 50 mg tablet 50 mg PO Q4H PRN Pain 05/09/24 05/02/25 magnesium carb,citrate,oxide 300 mg PO QPM 01/02/25 05/02/25 (Magnesium Complex) triamterene 37.5 1 tab PO DAILY 01/02/25 05/02/25 mg-hydrochlorothiazide 25 mg tablet vitamin B comp and C no.3 15 mg-10 1 cap PO DAILY 01/02/25 05/02/25 mg-50 mg-5 mg-300 mg capsule (B Complex Plus Vitamin C) azelastine 137 mcg (0.1 %) nasal 2 spray intranasal BID PRN Allergy 05/02/25 05/02/25 spray Symptoms cephalexin 500 mg capsule 1,000 mg PO BID 05/02/25 05/02/25 nifedipine 30 mg tablet,extended 30 mg PO QAM 05/02/25 05/02/25 release 24 hr potassium gluconate 600 mg (99 mg) 600 mg PO DAILY 05/02/25 05/02/25 tablet prednisone 10 mg tablet 10 mg PO DAILY 05/02/25 05/02/25 rimegepant 75 mg disintegrating 75 mg PO DAILY PRN migraine 05/02/25 05/02/25 tablet (Nurtec ODT) headache Previous Rx's ?Medication ?Instructions ?Recorded adalimumab 40 mg/0.8 mL 40 mg (0.8 mL) SUBCUT .[id number] #2 09/05/24 subcutaneous syringe kit (Humira) ea Held on 12/26/24. Instructions: Doctor's Order celecoxib 200 mg capsule (Celebrex) 200 mg PO BID #180 caps 09/05/24 Held on 12/26/24. Instructions: Doctor's Order hydroxychloroquine 200 mg tablet 200 mg PO BID #180 tabs 12/26/24 leflunomide 20 mg tablet 20 mg PO DAILY #90 tabs 12/26/24 pregabalin 200 mg capsule 200 mg PO BID #180 caps 12/26/24 prednisone 20 mg tablet See Rx Instructions PO .COMPLEX 02/11/25 PRN joint pain flare #30 tabs galcanezumab-gnlm 120 mg/mL 120 mg SUBCUT Q30D #1 mL 04/09/25 subcutaneous pen injector (Emgality Pen) Allergies Allergy/AdvReac Type Severity Reaction Status Date / Time adhesive tape Allergy burn/itch Verified 01/02/25 08:40 codeine Allergy ALGY-Rash Verified 01/02/25 08:40 escitalopram (From Lexapro) Allergy ADR-Depress Verified 01/02/25 08:40 ion latex Allergy ADR-Itching Verified 01/02/25 08:40 Penicillins Allergy ALGY-Rash Verified 01/02/25 08:40 Sulfa (Sulfonamide Allergy ALGY-Rash Verified 01/02/25 08:40 Antibiotics) zonisamide (From Zonegran) Allergy ADR-Halluci Verified 01/02/25 08:40 nating etanercept (From Enbrel) AdvReac Intermediate severe Verified 01/02/25 08:40 fatigue gabapentin AdvReac Unknown weight gain Verified 01/02/25 08:40 Review of Systems Const: Denies: fever(s) Card: Denies: chest pain Resp: Denies: dyspnea Musc: Reports: joint pain (L knee); Denies: extremity pain, extremity swelling, joint swelling, joint redness or joint warmth Neuro: Reports: difficulty walking (due to L knee pain); Denies: numbness in extremities, weakness in extremities or sensory changes PFSH ED PFSH: Medical History Immunization counseling High risk medication use Inflammatory arthritis Neck pain History of fibromyalgia History of IBS Family history of GERD Encounter for long-term use of opiate analgesic Neuropathy, lumbosacral (radicular) Chronic neck pain Chronic bilateral low back pain with bilateral sciatica Surgical History S/P laparoscopic cholecystectomy 2009 History of wisdom tooth extraction 2002 S/P arthroscopic knee surgery RIGHT 2002 Family History Other Cancer Diabetes Social History Smoking and tobacco/nicotine status: former use of tobacco/nicotine Alcohol intake: never Substance/Drug Use: never Physical Exam Const: COMMON NORMALS: no acute distress, patient oriented x3, no limitations, alert and well nourished GENERAL APPEARANCE: cooperative NUTRITIONAL APPEARANCE: obese (BMI 39.9) Extremity: COMMON NORMALS: normal to inspection, capillary refill normal, no clubbing, cyanosis or edema, no calf tenderness and no pedal edema GENERAL: Yes normal exam except as noted LEFT LOWER EXTREMITY: Yes knee joint (TTP anterior L knee; patellar does not appear dislocated) Left knee: Yes inspection (normal gross inspection), Yes ROM (has fairly normal passive ROM) and Yes neurovascular exam (normal) Neuro: COMMON NORMALS: patient oriented x3, moves all extremities, no focal motor deficits and no sensory deficits noted SENSORIUM/ORIENTATION: Yes alert Course Vital Signs: Vital signs: Vital Signs Pulse Rate 107 H 05/02/25 15:36 Respiratory Rate 18 05/02/25 15:36 Blood Pressure 167/108 05/02/25 15:36 Pulse Oximetry 97 05/02/25 15:36 Oxygen Delivery Me thod Room Air 05/02/25 15:36 MDM - Extremity Injury (Lower) Medical Decision Making XR unremarkable. History suggests patellar dislocation with reduction. Will place in knee immobilizer and give her crutches and we will have her follow up with orthopedics. Differential Diagnosis Likely acute internal derangement of knee Medical Records I reviewed the patient's medical records. XR interpretation done by ED provider, pending radiology final review Discharge Plan Discharge Patient Disposition: Home Clinical Impression: Closed dislocation of left patella Qualifiers: Encounter type: initial encounter Qualified Code(s): S83.005A - Unspecified dislocation of left patella, initial encounter Condition: Stable Prescriptions: No Action levocetirizine [Xyzal] 5 mg tablet 5 mg PO DAILY epinephrine 0.3 mg/0.3 mL auto-injector 0.3 mg IM Q10M PRN (Reason: Allergic Reaction) Rx Instructions: for 2 doses pantoprazole [Protonix] 40 mg tablet,delayed release (DR/EC) 40 mg PO QDAY baclofen 20 mg tablet 20 mg PO BID tramadol 50 mg tablet 50 mg PO Q4H PRN (Reason: Pain) triamterene-hydrochlorothiazid 37.5-25 mg tablet 1 tab PO DAILY hydroxychloroquine 200 mg tablet 200 mg PO BID Qty: 180 1RF leflunomide 20 mg tablet 20 mg PO DAILY Qty: 90 1RF pregabalin 200 mg capsule 200 mg PO BID Qty: 180 1RF Humira 40 mg/0.8 mL syringe kit 40 mg SUBCUT .[id number] Qty: 2 5RF celecoxib [Celebrex] 200 mg capsule 200 mg PO BID Qty: 180 1RF B Complex Plus Vitamin C [id number] mg capsule 1 cap PO DAILY Rx Instructions: give with food (meal/snack) Magnesium Complex 300 mg magnesium tablet 300 mg PO QPM prednisone 20 mg tablet See Rx Instructions PO .COMPLEX PRN (Reason: joint pain flare) Qty: 30 1RF Rx Instructions: Take 2 tablets by mouth daily for up to 7 days as needed for arthritis flare. Emgality Pen 120 mg/mL pen injector 120 mg SUBCUT Q30D Qty: 1 6RF Nurtec ODT 75 mg tablet,disintegrating 75 mg PO DAILY PRN (Reason: migraine headache) Rx Instructions: Do not exceed 75mg in a 24 hour period. nifedipine 30 mg tablet extended release 24hr 30 mg PO QAM cephalexin 500 mg capsule 1,000 mg PO BID azelastine 137 mcg (0.1 %) spray,non-aerosol 2 spray INTRANASAL BID PRN (Reason: Allergy Symptoms) potassium gluconate 600 mg (99 mg) Tablet 600 mg PO DAILY prednisone 10 mg tablet 10 mg PO DAILY Discharge Orders: Discharge ED (Routine); Ordered 05/02/25 Ordered By: Kaley Meade Referrals: Ryan,CLARISSE Bautista [Primary Care Provider, Nurse Practitioner] Patient Instructions: Patellar Dislocation (ED), Knee Immobilizer (ED), Patient Portal & Rhett Instructions Activity Restrictions/Additional Instructions: As we discussed, your x-ray today was unremarkable. Based on your history, I suspect you are able to successfully reduce your patellar dislocation. We will place you in a knee immobilizer and give you crutches. Will have case management contact you early next week to help set you up with your follow-up appointment with orthopedics. 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
--- NOTE | 2025-05-02 15:56 | DCPLANNER ---
messaged ortho for er f/u
== END 2025-05-02 16:50 | disposition home or self-care (01) ==
PROVIDERS: Emergency Provider Physician Assistant; PCP Nurse Practitioner Family
DX: S83.005A Unspecified dislocation of left patella, initial encounter (principal); Z87.891 Personal history of nicotine dependence; W13.8XXA Fall from, out of or through other building or structure, initial encounter
CPT/HCPCS: 73562; 96372; 99284; E0114; J1885; L1830

== ENCOUNTER → 2025-05-08 15:10 | Outpatient (BNVA) | payer BC, SELFPAY | PROVIDERS: PCP Nurse Practitioner Family; Visit Provider Orthopaedic Surgery | DX: S83.005A Unspecified dislocation of left patella, initial encounter (principal); X58.XXXA Exposure to other specified factors, initial encounter | CPT/HCPCS: 73562 ==

== ENCOUNTER 2025-05-12 12:04 | Outpatient (CLI) | payer BC, SELFPAY ==
--- NOTE | 2025-05-12 12:15 | MR_ITS ---
WS: [id number] MRI LEFT KNEE HISTORY: Impact injury. Pain. COMPARISON: Radiograph 05/08/2025 Anterior cruciate ligament: Complete tear of the ACL. Abnormal signal and orientation of the ACL fibers. Posterior cruciate ligament: Intact. Medial collateral ligament: Intact. Posterior lateral corner structures: Intact. Medial menisci: Complex tear in the posterior horn of the medial meniscus. There is signal abnormality within the free edge extending along the inferior articular surface. Signal abnormality does extend to the superior articular surface and the free edge. Meniscal root is intact. Lateral meniscus: Tear within the posterior horn towards the meniscal root. Horizontal and vertical tears within the meniscus extending into the meniscal root and the peripheral body of the meniscus. Extensor mechanism: Distal quadriceps tendon and patellar tendons are intact. Fluid and soft tissue: Moderate-sized suprapatellar joint effusion. There is edema anterior to the patella and anterior to the patellar tendon. Small Cummins's cyst. Osseous and articular structures: Patellofemoral compartment: Normal. Medial compartment: Mild narrowing the medial compartment. Irregularity along the posterior cartilaginous surface near the meniscal tear. There is marrow edema in the posterior tibial plateau. Lateral compartment: Mild narrowing of the lateral compartment. Marrow edema extends into the lateral tibial plateau. Cartilage appears intact. MR/MR knee LT wo con* [id number] IMPRESSION: 1. Marrow edema from trabecular injury involving the tibial plateau. No obviou s fracture identified. Marrow edema is predominantly in the posterior tibial pl ateau. 2. Complete tear ACL. 3. Complex tear posterior horn medial meniscus. Tear involves the free edge bu t extends to both the superior and inferior tickler surfaces. 4. Complex tear posterior horn lateral meniscus. Tear involves the posterior t hird of the meniscus and extends into the meniscal root. 5. Moderate-sized suprapatellar joint effusion. 6. Mild cartilage surface irregularity posterior medial knee corresponding to the meniscal tear.
== END 2025-05-12 12:05 | disposition home or self-care (01) ==
LOC: RAD 12:08
PROVIDERS: PCP Nurse Practitioner Family; Visit Provider Orthopaedic Surgery
DX: S83.512A Sprain of anterior cruciate ligament of left knee, initial encounter (principal); S83.272A Complex tear of lateral meniscus, current injury, left knee, initial encounter; X58.XXXA Exposure to other specified factors, initial encounter; M25.462 Effusion, left knee
CPT/HCPCS: 73721

== ENCOUNTER → 2025-05-21 15:00 | Outpatient (BNVA) | payer BC, SELFPAY | PROVIDERS: PCP Nurse Practitioner Family; Visit Provider Specialist | DX: S83.512A Sprain of anterior cruciate ligament of left knee, initial encounter (principal); X58.XXXA Exposure to other specified factors, initial encounter | CPT/HCPCS: 73560; 73565 ==

== ENCOUNTER 2025-06-03 16:00 | Outpatient (RCR) | payer BC, SELFPAY | END 2025-06-06 23:59 | disposition home or self-care (01) | LOC: TPT 16:00 | PROVIDERS: Visit Provider Specialist | DX: S83.512D Sprain of anterior cruciate ligament of left knee, subsequent encounter (principal); X58.XXXD Exposure to other specified factors, subsequent encounter | CPT/HCPCS: 97110; 97161 ==

== ENCOUNTER 2025-06-11 13:37 | Outpatient (CLI) | payer BC, SELFPAY | END 2025-06-11 13:38 | disposition home or self-care (01) | LOC: SPT 13:38 | PROVIDERS: Visit Provider Student in an Organized Health Care Education/Training Program | DX: Z46.89 Encounter for fitting and adjustment of other specified devices (principal); S83.512D Sprain of anterior cruciate ligament of left knee, subsequent encounter; S83.207D Unspecified tear of unspecified meniscus, current injury, left knee, subsequent encounter; X58.XXXD Exposure to other specified factors, subsequent encounter | CPT/HCPCS: L1812 ==

== ENCOUNTER 2025-06-17 15:55 | Outpatient (RCR) | payer BC, SELFPAY | END 2025-07-06 23:59 | disposition home or self-care (01) | LOC: TPT 15:55 | PROVIDERS: Visit Provider Specialist | DX: S83.512D Sprain of anterior cruciate ligament of left knee, subsequent encounter (principal); X58.XXXD Exposure to other specified factors, subsequent encounter | CPT/HCPCS: 97110 ==

== ENCOUNTER 2025-06-19 10:50 | Day surgery (SDC) | payer MEDICAID, BC, SELFPAY ==
[2025-06-19] VITALS (10 sets, daily range): BP systolic 116–144; BP diastolic 81–99; PULSE 77–98; RESP 7–16; TEMP 36.5–37.3; O2SAT 92–100; BMI 40.7
[2025-06-19 11:36] LABS: OR HCG Qualitative Urine Negative (Negative)
--- NOTE | 2025-06-19 12:13 | W.PM.OPSUD ---
Surgery/Procedure H&P Update DATE OF PROCEDURE: June 19, 2025 DATE H&P PERFORMED: 06/11/25 H&P UPDATE INFORMATION: I have reviewed H&P completed within last 30 days, I have examined patient prior to procedure and No changes to prior documentation PREOP DIAGNOSIS: Left knee complete ACL tear, medial and lateral meniscus tear PRIMARY INDICATION FOR PROCEDURE: Left knee complete ACL tear, medial and lateral meniscus tear PLANNED PROCEDURE: Operation Date: 06/19/25 12:35 Proposed Procedures p LEFT Knee Diagnostic and Surgical Arthroscopy(Left) - DO cyndie Owens Arthroscopic assisted ACL Reconstruction with Quadricep Tendon Allograft(Left) - DO cyndie Owens PARTIAL Medial Meniscectomy vs Repair and PARTIAL Lateral Meniscectomy vs. Repair(Left) - Junior Kapadia DO
[2025-06-19] MEDS: acetaminophen 1,000 MG/100 ML PIGGYBACK 400 MG IV (13:32)
[2025-06-19 13:36] LABS: Blood Urea Nitrogen 17 mg/dL (6-20); Calcium 9.3 mg/dL (8.5-10.5); Carbon Dioxide 25 mmol/L (22-29); Chloride 102 mmol/L (98-107); Glucose 87 mg/dL (65-115); Osmolality Calculated 295 mOsm/kg (285-295); Sodium 142 mmol/L (136-145)
[2025-06-19 13:41] LABS: Anion Gap 19.0 (5-19); Potassium 4.0 mmol/L (3.5-5.1)
[2025-06-19] MEDS: ceFAZolin 2,000 MG in sodium chloride 0.9% (plus) 50 ML 100 MG IV (13:50)
--- NOTE | 2025-06-19 14:16 | ANES.PREANE2 ---
Pre-Anesthetic Assessment Height/Weight: Height 1.6 m Weight 104.326 kg Temp Pulse Resp BP Pulse Ox O2 Del Method 98.8 F 93 16 130/97 96 Room Air 06/19/25 11:45 06/19/25 11:45 06/19/25 11:45 06/19/25 11:45 06/19/25 11:45 06/19/25 11:46 Preop Diagnosis: Left knee complete ACL tear, medial and lateral meniscus tear Operation Date: 06/19/25 12:35 Proposed Procedures p LEFT Knee Diagnostic and Surgical Arthroscopy(Left) - Junior Kapadia DO s Arthroscopic assisted ACL Reconstruction with Quadricep Tendon Allograft(Left) - Junior Kapadia DO s PARTIAL Medial Meniscectomy vs Repair and PARTIAL Lateral Meniscectomy vs. Repair(Left) - Junior Kapadia DO Familial anesthetic complications: none Was Beta Willi taken within 24 hours: N/A Was Clonidine taken within 24 hours: N/A Last intake: Intake Last Liquid Date 06/18/25 Last Liquid Time 23:55 Last Solid Date 06/18/25 Last Solid Time 19:00 Social No alcohol and No tobacco Exam alert, oriented x 3, clear to auscultation bilaterally and regular rate & rhythm Metabolic Morbid Obesity [facility] Rheumatoid Arthritis Anesthetic Plan ASA status: 3 Anesthesia: General and Regional (specify below) Risk of > 500 ml blood loss (7ml/kg in children): No Medications/Allergies Home Medications ?Medication ?Instructions ?Recorded ?Confirmed ?Last Taken ?Type pantoprazole 40 mg tablet,delayed 40 mg PO QDAY 08/26/19 06/18/25 06/19/25 History release (Protonix) levocetirizine 5 mg tablet (Xyzal) 5 mg PO DAILY 10/30/19 06/18/25 06/17/25 History epinephrine 0.3 mg/0.3 mL 0.3 mg IM Q10M PRN Allergic 09/13/21 06/18/25 Unknown History injection, auto-injector Reaction baclofen 20 mg tablet 20 mg PO BID 03/23/23 06/18/25 06/19/25 History tramadol 50 mg tablet 50 mg PO Q4H PRN Pain 05/09/24 06/18/25 Unknown History adalimumab 40 mg/0.8 mL 40 mg (0.8 mL) SUBCUT .[id number] #2 09/05/24 06/18/25 06/03/25 Rx subcutaneous syringe kit (Humira) ea Held on 12/26/24. Instructions: Doctor's Order celecoxib 200 mg capsule (Celebrex) 200 mg PO BID #180 caps 09/05/24 06/18/25 Unknown Rx Held on 12/26/24. Instructions: Doctor's Order hydroxychloroquine 200 mg tablet 200 mg PO BID #180 tabs 12/26/24 06/18/25 06/19/25 Rx leflunomide 20 mg tablet 20 mg PO DAILY #90 tabs 12/26/24 06/18/25 06/19/25 Rx pregabalin 200 mg capsule 200 mg PO BID #180 caps 12/26/24 06/18/25 06/19/25 Rx magnesium carb,citrate,oxide 300 mg PO QPM 01/02/25 06/18/25 06/17/25 History (Magnesium Complex) triamterene 37.5 1 tab PO DAILY 01/02/25 06/18/25 06/19/25 History mg-hydrochlorothiazide 25 mg tablet vitamin B comp and C no.3 15 mg-10 1 cap PO DAILY 01/02/25 06/18/25 06/19/25 History mg-50 mg-5 mg-300 mg capsule (B Complex Plus Vitamin C) galcanezumab-gnlm 120 mg/mL 120 mg SUBCUT Q30D #1 mL 04/09/25 06/18/25 06/03/25 Rx subcutaneous pen injector (Emgality Pen) azelastine 137 mcg (0.1 %) nasal 2 spray intranasal BID PRN Allergy 05/02/25 06/18/25 06/17/25 History spray Symptoms nifedipine 30 mg tablet,extended 30 mg PO QAM 05/02/25 06/18/25 06/19/25 History release 24 hr (Procardia XL) potassium gluconate 600 mg (99 mg) 600 mg PO DAILY 05/02/25 06/18/25 06/17/25 History tablet rimegepant 75 mg disintegrating 75 mg PO DAILY PRN migraine 05/02/25 06/18/25 06/17/25 History tablet (Nurtec ODT) headache Left Hinged Knee Brace #1 ea 06/11/25 06/11/25 Unknown Rx prednisone 10 mg tablet 10 mg PO DAILY 06/18/25 06/18/25 06/19/25 History prednisone 20 mg tablet 20 mg PO ONCE PRN joint pain flare 06/18/25 06/18/25 Unknown History hydrocodone 7.5 mg-acetaminophen 1 tab PO Q6H PRN pain #20 tabs 06/19/25 Unknown Rx 325 mg tablet Allergies Allergy/AdvReac Type Severity Reaction Status Date / Time aspirin Allergy Severe ADR-Gastrointestinal Verified 06/19/25 13:14 Upset adhesive tape Allergy burn/itch Verified 06/18/25 15:32 codeine Allergy ALGY-Rash Verified 06/18/25 15:32 escitalopram (From Lexapro) Allergy ADR-Depress Verified 06/18/25 15:32 ion latex Allergy ADR-Itching Verified 06/18/25 15:32 Penicillins Allergy ALGY-Rash Verified 06/18/25 15:32 Sulfa (Sulfonamide Allergy ALGY-Rash Verified 06/18/25 15:32 Antibiotics) zonisamide (From Zonegran) Allergy ADR-Halluci Verified 06/18/25 15:32 nating etanercept (From Enbrel) AdvReac Intermediate severe Verified 06/18/25 15:32 fatigue gabapentin AdvReac Unknown weight gain Verified 06/18/25 15:32 Current Medications Generic Name Dose Route Start Last Admin Trade Name Freq PRN Reason Stop Dose Admin Sodium Chloride 1,000 mls @ 30 mls/hr 06/19/25 11:00 06/19/25 12:35 Sodium Chloride 0.9% IV 06/20/25 10:59 30 mls/hr .Q24H TRINITY Administration PFSH Anesthesia Medical History (Updated 06/15/25 @ 21:06 by Junior Kapadia DO) Immunization counseling High risk medication use Inflammatory arthritis Neck pain History of fibromyalgia History of IBS Family history of GERD Encounter for long-term use of opiate analgesic Neuropathy, lumbosacral (radicular) Chronic neck pain Chronic bilateral low back pain with bilateral sciatica Surgical History (Updated 06/19/25 @ 12:19 by CORY Hanna) S/P laparoscopic cholecystectomy 2009 History of wisdom tooth extraction 2003 S/P arthroscopic knee surgery RIGHT 2002 Family History Other Cancer Diabetes Social History Smoking and tobacco/nicotine status: former use of tobacco/nicotine Alcohol intake: never Substance/Drug Use: never Data Anesthesia 06/19/25 13:00 BMP 06/19/25 13:00 Sodium 142 Potassium 4.0 Chloride 102 Carbon Dioxide 25 BUN 17 Creatinine 0.8 Glucose 87 Calcium 9.3
[2025-06-19] MEDS: ROPivacaine 0.5% SDV 30 mL 50 MG INJECTION (15:49)
--- NOTE | 2025-06-19 16:31 | W.PM.BPON ---
Date of Procedure: 06/19/2025 Surgeon: Junior Kapadia DO [employer] Furnace Tender(s): Kurt Kapadia PA-C Procedure(s) performed: Left knee diagnostic and surgical arthroscopy with arthroscopic assisted ACL reconstruction with quad tendon allograft Left knee diagnostic and surgical arthroscopy with partial medial meniscectomy Left knee diagnostic and surgical arthroscopy with partial lateral meniscectomy Left knee diagnostic and surgical arthroscopy with extensive synovectomy Findings of the procedure(s): Patient underwent procedure as planned without issues or complications taken to recovery in stable condition Estimated blood loss: 20 mL Specimen(s) removed: None Post-operative diagnosis: Left knee complete ACL tear, medial meniscus tear, lateral meniscus tear, extensive synovitis
--- NOTE | 2025-06-19 16:34 | PM.OP ---
Operative Report Date of procedure: June 19, 2025 Surgeon: Junior Kapadia DO Administrative Library Assistant: Kurt Kapadia PA-C: PA was necessary for assistance in this case with leg positioning, assistance with graft preparation, assistance with tunnel drilling and graft placement and securing graft, retraction and protection of neurovascular structures as well as arthroscopic assisted instrumentation of part medial and lateral meniscectomies, wound closure and dressing application. Procedure: Surgeon:? Junior Kapadia DO Procedure:? Preoperative diagnosis: Left knee?ACL?tear Extensive synovitis Left knee medial meniscus tear Left knee lateral meniscus tear Post-op diagnosis: Same Procedure done: Procedure Done: Left knee diagnostic and surgical arthroscopy with arthroscopic assisted ACL reconstruction with quad tendon allograft Left knee diagnostic and surgical arthroscopy with partial medial meniscectomy Left knee diagnostic and surgical arthroscopy with partial lateral meniscectomy Left knee diagnostic and surgical arthroscopy with extensive synovectomy Implants: Arthrex?quad?tendon allograft set with internal brace Arthrex quad graft link allograft 9.5 mm x 66 mm 4.75 swivel lock for internal brace Surgeon: Junior Kapadia Estimated blood loss (mL): 20 Tourniquet time: 98 minutes IV fluids: 1000mL Complications: None Findings: See operative report narrative Condition: stable Disposition: same day Brief History: Patient is a pleasant 39-year-old female who is been seen and worked up in the outpatient setting after sustaining a injury to Left knee.? Patient has positive Jerel's .? MRI shows complete tear of the?ACL as well as medial and lateral meniscus tears.. Patient at this point time has full range of motion given her continual periods of instability in order to restore normal knee mechanics and through shared decision making she like to proceed with a left knee?ACL?reconstruction and partial medial meniscectomy versus repair and partial lateral meniscectomy versus repair. Plan for a left knee diagnostic and surgical arthroscopy with arthroscopic assisted?ACL?reconstruction utilizing a?quad?tendon allograft and partial medial meniscectomy versus repair and partial lateral meniscectomy versus repair. We reviewed the MRI images.? ?Detailed out the ins and outs of the procedure.? They understand the risk benefits complications alternatives of treatment options and agreed to proceed with surgery.? The risks include but are not limited to make it better, make it worse, blood clot, infection, arthrofibrosis and stiffness of the knee, deep creased function of the knee, rerupture, , further surgery, early arthritis and with these understandings pt agree to proceed with surgical intervention.? All questions answered.? Consent was obtained in the preoperative holding area.. Procedure: Patient was seen evaluated in the preoperative holding area.? The consent was reviewed with the patient as well as parents.? The correct extremity was then marked.? Patient was seen evaluate by the anesthesia and preoperative team.? Once cleared by anesthesia, patient was then taken to the operative suite patient was then placed onto the OR table and underwent anesthesia per the anesthesia department.? All bony prominences were well-padded patient was appropriately secured to the bed.? The right lower extremity was then secured to an armboard.? The bottom of the table was then dropped.? Patient had a nonsterile tourniquet applied to the left lower extremity.? A arthroscopic post was then placed to the lateral aspect of the left knee.? Once completely secured to the bed patient's left knee was then examined under anesthesia.? Patient was found to have a positive Jerel's as well as a positive pivot shift.? ?This point time the left knee was then prepped and draped in standard orthopedic fashion.? Final timeout performed.? Patient received appropriate preoperative antibiotics. Esmarch was used to exsanguinate the left lower extremity.? Tourniquet was insufflated to 250 mmHg.? Initially started with Standard 2 incision vertical arthroscopy portals were made.? Initially starting laterally introduced the trocar and perform a diagnostic and surgical arthroscopy visualizing the suprapatellar pouch which was free of loose bodies.? We evacuated a mild hemarthrosis.? We then visualized the patellofemoral joint which was roughly grade I chondromalacia.? Moved into the medial lateral gutters which were pristine with no evidence of loose bodies.? We then evaluated the medial compartment which was found to have grade II chondromalacia. I utilized a spinal needle outside in technique to establish my medial portal. Patient was found to have a complex tear of the posterior horn medial meniscus. This did extend near the meniscal root. However the posterior portion of the root was still intact. At this point in time I then subsequently given the complexly of the tear this was unable to be repaired and performed a partial medial meniscectomy with an arthroscopic basket forceps and arthroscopic shaver to perform a stable partial medial meniscectomy to stable meniscal tissue and subsequently sealed the edges with thermal wand. ? This was then established as well as shaver used to complete a extensive synovectomy to allow for easy graft passage and shuttling a suture and this was performed of all 3 compartments. Moved into the intercondylar notch and significant rupture of the?ACL?was noted. Empty back wall noted.? I introduced the arthroscopic shaver to debride the?ACL?back to the footprint of the femur as well as of the tibia.? This point time moved into the lateral compartment to evaluate the lateral meniscus.? Grade I and II chondromalacia from the lateral compartment and then subsequently evaluated and patient had a small oblique flap tear in the white-white zone of the posterior horn of the lateral meniscus the root was intact at this point in time no need for any repairs I subsequently performed a standard partial lateral meniscectomy to stable meniscal tissue with arthroscopic basket forceps and arthroscopic shaver and the edges were annealed with the thermal wand. This completed the partial lateral meniscectomy working lateral compartment completed my synovectomy lateral compartment. This completed the diagnostic and surgical portion of the arthroscopy procedure and then subsequently called for the ACL allograft as it was confirmed on examination as well as arthroscopically that patient had a complete ACL tear. At this point in time the ACL speed graft quad graft link Arthrex 9.5 mm x 66 mm was then prepped on the back table with the assistance of my operations assistant/PA. This was then prepped and prepared and appropriately sized and and placed on a compression tubing as well as internal brace was set up. Once the graft was appropriately prepped we then proceeded with tunnel preparation with assistance. ?At this point I moved into preparation for femoral tunnels.? I then introduced arthroscopic shaver to debride the femoral origin of the?ACL?I utilized electrocautery to maintain access in the retrocruciate space.? This was free of loose bodies.? I then performed a notchplasty with a bur just to identify appropriate landmarks and easier shuttle passing.? This would also provide excellent stimulation and healing for the?ACL?reconstruction.? This point time it utilize a thermal wand to kamilla my planned anatomic femoral tunnel. At this point time introduced the femoral tunnel guide which was set to appropriate angle and then subsequently made a small incision tamped our guide directly down to bone laterally and then the drill was then inserted into the intercondylar notch at my planned femoral tunnel spot.? I then utilized the reverse reamer drill bit to reverse ream a 9.5 mm tunnel with roughly 26 mm to allow for back tensioning if needed later.? This completed my femoral tunnel.? The femoral tunnel was then evacuated of its bony debris utilizing arthroscopic shaver.? I then introduced a FiberWire as my shuttling stitch for the femur and this was clamped utilizing a hemostat.? Next I then introduced my tibial tunnel guide which was set to appropriate length this was centered directly over the anatomic tibial footprint.? Once I like my position I then placed my guide on the skin plan my incision made a small incision with plan for later IB placement and the tibia.? Drill sleeve was then tapped into place the drill was then advanced into the anatomic footprint of the tibia the flip cutter was then placed at 9.5mm for the tunnel with and a 30 mm drill tunnel was then placed to allow for appropriate back tensioning as needed.? Once this was done I then introduced the arthroscopic shaver to debride all bony debris throughout the tibial tunnel to prevent from any chances of cyclops lesions.? Once this was done I then shuttled my fiber wire suture through the tibial tunnel and pulled this out of the medial arthroscopic portal.? I then grabbed the femoral shuttling suture and pulled this out the anterior medial portal as well.? This point time we are ready to pass our graft.? I did utilize scalpel to extend my incision as well as blunt hemostat to appropriately open the medial portal to accommodate for graft passage. I then appropriately marked our drill tunnel length on her suture and then shuttled our?quad?autograft femoral side utilizing my femoral shuttling suture the button was then flipped.? I utilized x-ray mini C arm to confirm button was flipped directly onto the lateral femoral cortex.? Once this was flipped and appropriately tensioned with the knee in flexion I then utilized the white tensioning sutures to bring the 20 mm graft plug and appropriate position once this was appropriately secured this was then left alone and I subsequently moved to shuttling the tibia shuttling sutures for my tibial portion of my graft.? This was then shuttled through and then pulled into the tibial tunnel under direct arthroscopic visualization.? Next I then placed the knee into full extension I then inserted the tibial button which the suture was then placed into as well as shuttling my internal brace suture through.? First I appropriately tensioned my tibial graft plug secured this down to bone and cycled multiple times of tension.? Once preliminary fixed I then range the knee over 30 times performed a Jerel and anterior drawer to get creep out of the graft system.? Once this was done I then went back up to the femur with the knee in flexion repeat tensioned so this maxed tensioned as well as place the knee back into extension and repeat tension to my tibial button and graft until this reached excellent tension.? At this point time I then took my internal brace sutures which were then loaded onto a 4.75 swivel lock.? I then identified the medial face of the tibia in a perpendicular fashion utilize their stop drill guide for the swivel lock and then appropriately tapped and impacted my 4.75 swivel lock internal brace with excellent fixation while the knee was held in extension.? Extra suture was then cut.? ?At this point time I then tied my tensioning sutures of the tibia over my tibial button and then the sutures were cut.? Then subsequently did final femoral back tension once this was complete I then subsequently tied and remove the excess sutures off the femoral side as well. This completed my?ACL?reconstruction this was then taken through a Jerel's which had a significant firm endpoint with no evidence of laxity he had no evidence of a pivot shift.? This point in final images were then taken arthroscopically.? All fluid was suctioned out of the knee.? Tourniquet was deflated.? Excess sutures on the femur side were then removed.? Incisions were then closed with 0 Vicryl 2-0 Vicryl and a nylon suture for skin.? Dressings were then applied of 4 x 4's ABD soft roll and an Epi wrap.? Patient was then secured and appropriately fitted for?ACL?brace Lois locked in extension prior to waking up.? Patient was then transported to the hospital table he was waken up from anesthesia and taken to PACU in stable condition. Disposition: Patient recover in PACU in stable condition.? Patient and family will be given appropriate discharge instructions as well as DVT prophylaxis pain medication postoperatively.? We will get? started on her?ACL?reconstruction? protocol? We will work [id number] with therapy department.? Patient as well as parents understand and agree with current plan.? All questions answered at this time.? We will see him in office in 2 weeks for follow-up.? We will have? be locked in full extension and may be toe-touch weightbearing while knee brace is locked in full extension.
--- NOTE | 2025-06-19 17:00 | PM.PACU ---
PACU note Narrative: Patient is a 39-year-old female who just underwent a left knee diagnostic and surgical arthroscopy with ACL reconstruction. Pt transferred to PACU in stable condition. Dressing is dry. pt is awake and alert. pt can wiggle toes and plantarflex and dorsiflex foot. pt able to perform straight leg raise, Femoral nerve intact. Distal pulses are palpable toes are warm and well-perfused. Cap refill is normal and under 2 seconds. Sensation to foot is intact. Pain is controlled. Exam: awake Disposition: discharged
--- NOTE | 2025-06-19 17:12 | ANES.PROC ---
Anesthesia Procedures Procedure/Date: 06/19/25 Nerve Block ^: Nerve Block 1: Main Anesthesia: general anesthesia Time Out Performed: Yes Consent: requested by attending/covering physician, from patient, from other and risks and benefits reviewed Laterality: Left Nerve block location: adductor canal (L) Anesthesia monitors applied: pulse oximetry, EKG, BP cuff and oxygen Nerve block position: supine Anesthetic Used: ropivicaine 0.5% (30 ml) Ultrasound used to: recognize landmarks and visualize and ID femerol nerve Interscalene/Femoral BLK: 4 stimuplex 21 g needle used for position and inplane approach, visualize local anesthetic spread and no vascular puncture identified Injection: neg aspiration of heme Patient Tolerated Procedure: well Complications: none Additional Comments: Diagnosis: post op pain
--- NOTE | 2025-06-19 17:14 | ANE.PACU2 ---
Inpatient post-anesthesia follow up: Airway intact: Yes Vital signs: Temperature 97.9 F Pulse Rate 93 Respiratory Rate 12 Blood Pressure 141/103 Pulse Oximetry 98 Oxygen Delivery Me thod Room Air Oxygen Flow Rate 6 Fraction of Inspir ed Oxygen Hydration adequate: Yes Nausea and vomiting: No Pain level: 2 Mental status: Baseline
== END 2025-06-19 18:00 | disposition home or self-care (01) ==
PROVIDERS: Anesthesiology; PCP Nurse Practitioner Family; Visit Provider Student in an Organized Health Care Education/Training Program
PROC: (CPT 29870; principal; 2025-06-19 12:35)
PROC: (CPT 27407; 2025-06-19 12:35)
PROC: (CPT 29888; 2025-06-19 12:35)
PROC: (CPT 29870; 2025-06-19 12:35)
DX: S83.242A Other tear of medial meniscus, current injury, left knee, initial encounter (principal); S83.282A Other tear of lateral meniscus, current injury, left knee, initial encounter; V48.4XXA Person boarding or alighting a car injured in noncollision transport accident, initial encounter; M65.862 Other synovitis and tenosynovitis, left lower leg; M23.92 Unspecified internal derangement of left knee; K21.9 Gastro-esophageal reflux disease without esophagitis; E66.01 Morbid (severe) obesity due to excess calories; Z68.41 Body mass index [BMI] 40.0-44.9, adult; M06.9 Rheumatoid arthritis, unspecified; Z79.891 Long term (current) use of opiate analgesic; M79.7 Fibromyalgia; Z87.891 Personal history of nicotine dependence
CPT/HCPCS: 29888; 80048; 81025; 97760; C1713; C1762; J0131; J0690; J1100; J1171; J1200; J1885; J2250; J2405; J2704; J2795; J3010; J3490; J7030; J9999

== ENCOUNTER → 2025-07-08 14:01 | Outpatient (BNVA) | payer BC, MEDICAID, SELFPAY | PROVIDERS: PCP Nurse Practitioner Family; Visit Provider Student in an Organized Health Care Education/Training Program | DX: Z98.890 Other specified postprocedural states (principal) | CPT/HCPCS: 73560; 73565 ==

== ENCOUNTER → 2025-07-10 12:27 | Outpatient (BNVA) | payer BC, MEDICAID, SELFPAY | PROVIDERS: PCP Nurse Practitioner Family; Visit Provider Internal Medicine Rheumatology | DX: Z79.899 Other long term (current) drug therapy (principal) | CPT/HCPCS: 36415; 80076; 82565; 85025; 85651; 86140 ==

== ENCOUNTER 2025-08-01 16:00 | Outpatient (RCR) | payer BC, MEDICAID, SELFPAY | END 2025-08-06 23:59 | disposition home or self-care (01) | LOC: TPT 16:00 | PROVIDERS: PCP Nurse Practitioner Family; Visit Provider Student in an Organized Health Care Education/Training Program | DX: Z98.890 Other specified postprocedural states (principal) | CPT/HCPCS: 97110; 97116; 97161 ==